=== PATIENT | male | born 1970 | race African-American/Black ===

== ENCOUNTER → 2021-12-19 | Outpatient (BNVA) | payer MEDICARE, MEDICAID, SELFPAY | END | disposition home or self-care (01) | PROVIDERS: PCP Family Medicine; Visit Provider Urology ==

== ENCOUNTER 2025-06-02 14:50 | Inpatient (IN) | payer MEDICARE, MEDICAID, SELFPAY ==
[2025-06-02 15:11] VITALS: BP 93/52; PULSE 104; RESP 18; TEMP 36.5; O2SAT 96
--- NOTE | 2025-06-02 15:41 | PD.EDRME ---
Rapid Medical Screening Exam E Arrival date/time: 06/02/25 14:50 54-year-old male with a history of Down syndrome and indwelling Alvarez catheter urinary retention and frequent UTIs reports with complaints of cloudy urine and fatigue and not eating x 1 day Chief Complaint: General Adult/Misc Complain Time Seen by Provider: 06/02/25 15:02 Vital signs: Vital Signs Temperature 97.7 F 06/02/25 15:11 Pulse Rate 104 H 06/02/25 15:11 Respiratory Rate 18 06/02/25 15:11 Blood Pressure 93/52 L 06/02/25 15:11 Pulse Oximetry (%) 96 06/02/25 15:11 Oxygen Delivery Method Room Air 06/02/25 15:11
[2025-06-02 16:12] LABS: Basophils # (Auto) 0.0 Thou/mm3 (0.0-0.2); Basophils % (Auto) 0 % (0-2.5); Eosinophils # (Auto) 0.0 Thou/mm3 (0.0-0.5); Eosinophils % (Auto) 0 % (0-10); Hematocrit 32.3 % (41.0-53.0); Hemoglobin 11.0 g/dL (13.5-16.0); Immature Granulocytes Auto 0.21 Thou/mm3 (0.00-0.00); Lymphocytes # (Auto) 0.6 Thou/mm3 (1.0-4.8); Lymphocytes % (Auto) 3 % (10-50); Mean Corpuscular HGB Conc 34.1 g/dl (31.0-37.0); Mean Corpuscular Hemoglobin 35.4 pg (25.0-35.0); Mean Corpuscular Volume 104 fL (80-100); Monocytes # (Auto) 1.5 Thou/mm3 (0.0-0.8); Monocytes % (Auto) 7 % (0-12); Neutrophils # (Auto) 20.2 Thou/mm3 (1.8-7.7); Neutrophils % (Auto) 90 % (37-80); Nucleated Red Blood Cell # 0.00 Thou/mm3 (0.00-0.00); Nucleated Red Blood Cell % 0 /100 WBC (0); Platelet Count 135 Thou/mm3 (140-440); RDW Standard Deviation 60.0 fL (35.1-43.9); Red Blood Count 3.11 Miln/mm3 (4.50-5.90); White Blood Count 22.6 Thou/mm3 (3.8-10.6)
[2025-06-02 16:32] LABS: Alanine Aminotransferase 12 U/L (10-49); Albumin, Serum 3.0 gm/dL (3.5-5.0); Albumin/Globulin Ratio 0.6 (1.2-2.2); Alkaline Phosphatase 64 U/L (46-116); Anion Gap 9 (7-16); Aspartate Amino Transferase 40 U/L (0-34); BUN/Creatinine Ratio 11 Ratio (12-20); Bilirubin,Total 0.3 mg/dL (0.3-1.2); Blood Urea Nitrogen 52 mg/dL (9-23); Calcium 8.8 mg/dL (8.3-10.6); Calcium (Corrected) 9.6 mg/dL (8.5-10.1); Carbon Dioxide 23.0 mMol/L (20.0-31.0); Chloride 95 mMol/L (98-107); Creatinine (Component) 4.7 mg/dL (0.6-1.3); Globulin 4.7 gm/dL (2.3-3.5); Glucose 98 mg/dL (74-106); Osmolality,Calculated 269 (275-295); Potassium 5.1 mMol/L (3.4-5.1); Sodium 127 mMol/L (136-145); Total Protein 7.7 gm/dL (5.7-8.2); eGFR 14 See Note
--- NOTE | 2025-06-02 18:09 | XR_ITS ---
Examination: AP chest single view Technique: AP portable semiupright chest single view Date and time: June 02, 2025 1838 hrs., Comparison October 03, 2023. Indications: Hypertension shortness of breath today. Findings: Mild heart failure. Mild enlargement cardiac contour, prominent vascular congestion including central vascular engorgement. Mild bilateral perihilar pulmonary edema. Consider superimposed pneumonia at the lung bases. Impression: Mild heart failure Consider superimposed pneumonia at the lung bases.
--- NOTE | 2025-06-02 18:11 | PD.EDADULT ---
ED General RME/HPI General Chief complaint: General Adult/Misc Complain Stated complaint: LOW BP Time Seen by Provider: 06/02/25 15:02 Arrival date/time: 06/02/25 14:50 RME / HPI RME / HPI narrative: 54-year-old male with a history of Down syndrome and indwelling Alvarez catheter urinary retention and frequent UTIs reports with complaints of cloudy urine and fatigue and not eating x 1 day. Patient was also noted to be nonambulatory today due to weakness. Went to the clinic and the clinic sent to us for blood pressure of mid 80s systolic. No fever noted no vomiting noted no diarrhea noted. Patient finished antibiotic last week. Related Data Home Medications ?Medication ?Instructions ?Recorded ?Confirmed docusate sodium 100 mg capsule 100 mg PO BID PRN bowel movement 05/09/19 10/02/23 loratadine 10 mg tablet 10 mg PO QDAY 05/16/19 10/02/23 diphenhydramine HCl 25 mg capsule 25 mg PO HS 07/07/21 10/02/23 (Benadryl) divalproex 500 mg tablet,extended 500 mg PO BID 01/17/22 10/02/23 release 24 hr magnesium oxide 400 mg PO BID 01/17/22 10/02/23 melatonin 10 mg tablet 10 mg PO HS 01/17/22 10/02/23 quetiapine 25 mg tablet (Seroquel) 25 mg PO TID 01/17/22 10/02/23 finasteride 5 mg tablet 5 mg PO BID 01/18/22 10/02/23 ketoconazole 2 % topical cream See Rx Instructions .Route .COMPLEX 01/18/22 10/02/23 linaclotide 145 mcg capsule 145 mcg PO AC 01/18/22 10/02/23 (Linzess) tamsulosin 0.4 mg capsule 0.4 mg PO BID 03/02/22 10/02/23 febuxostat 80 mg tablet (Uloric) 80 mg PO QDAY 06/20/22 10/02/23 metoprolol tartrate 50 mg tablet 50 mg PO BID 06/20/22 10/02/23 indomethacin 50 mg capsule 50 mg PO TID PRN Pain 10/02/23 10/02/23 gxytzcdkpxty-grkxqedq-qdwwjm tablet 1 tab PO QDAY 10/02/23 10/02/23 Previous Rx's ?Medication ?Instructions ?Recorded loperamide 2 mg tablet 2 mg PO Q6H PRN loose stool #14 12/31/22 (Anti-Diarrheal (loperamide)) tabs Allergies Allergy/AdvReac Type Severity Reaction Status Date / Time No Known Allergies Allergy Verified 06/02/25 14:52 Review of Systems Review of Systems Narrative Review of Systems: Review of system reviewed and within normal limits except mentioned in HPI ED Exam Narrative Physical exam: VITAL SIGNS: Reviewed. GENERAL APPEARANCE: Alert and good eye contact nonverbal does not follows commands, no acute distress, HEAD AND FACE: Non-traumatic. ENT: PERRL, pink conjunctivitis, eyelid no trauma, Mucous membrane moist. NECK: Supple, nontender, no nuchal rigidity. CHEST: No tenderness, no crepitus, no paradoxical movement, no retractions. LUNGS: Clear, well ventilated, symmetric, no rales, no wheezing, no ronchi, no stridor, good breath sounds bilaterally. HEART: Regular rate, regular rhythm, no murmur, no gallops. ABDOMEN: Soft, positive bowel sounds, nondistended, no guarding, nontender, no rebound, no masses, RECTAL: Deferred. GENITAL: Alvarez catheter intact, cloudy in color NEUROLOGICAL: Gross motor function intact sensory function intact, Appropriate for age. MUSCULOSKELETAL: low back nontender, full range of motion. EXTREMITIES: Nontender, full range of motion. SKIN: Color pink, dry, no rash, no lacerations, no abrasions, no contusions. LYMPHATICS: Deferred. Course Quality Measures none Orders Category Date Time Status Bedside COVID-19 Antigen Test NOW Care 06/02/25 18:08 Active Bedside Influenza A&B Antigen Test NOW Care 06/02/25 18:08 Completed COVID-19 Screening Questionnaire NOW Care 06/02/25 21:17 Active Decision to Admit X1 Care 06/02/25 21:17 Active Alvarez [Urinary Catheter, Remove] ONCE Care 06/02/25 18:08 Active Alvarez [Urinary Catheter] QS Care 06/02/25 18:08 Active Alvarez to [place] Routine Care 06/02/25 18:08 Ordered IV [Insert IV] NOW Care 06/02/25 19:44 Active XR chest 1V Stat Exams 06/02/25 18:09 Completed Blood Culture (Lab) Stat Lab 06/02/25 19:39 Received CBC Stat Lab 06/02/25 15:50 Completed CMP [Comprehensive Metabolic Panel] Stat Lab 06/02/25 15:50 Completed Lactate (Lactic Acid) Stat Lab 06/02/25 19:29 Results Procalcitonin Stat Lab 06/02/25 19:29 Completed UA [Urinalysis] Stat Lab 06/02/25 19:28 Completed Urine Culture Stat Lab 06/02/25 19:28 Received Piper/Tazo 3.375 gm Premix [Zosyn] Med 06/02/25 20:13 Discontinued 3.375 gm in 50 ml IV X1 Ringers Lactated 1000 ml [Lactated Ringers] 1,000 ml Med 06/02/25 18:09 Discontinued IV 999 mls/hr Vital Signs Vital signs: Vital Signs Temperature 97.7 F 06/02/25 15:11 Pulse Rate 104 H 06/02/25 15:11 Respiratory Rate 18 06/02/25 15:11 Blood Pressure 93/52 L 06/02/25 15:11 Pulse Oximetry (%) 96 06/02/25 15:11 Oxygen Delivery Method Room Air 06/02/25 15:11 Discharge Plan Plan Patient Disposition: Admit Acute Care w/in Hospital Discharge Disposition comment: Stable Prescriptions/Referrals Prescriptions/Med Rec: No Action diphenhydramine HCl [Benadryl] 25 mg capsule 25 mg PO HS divalproex 500 mg Tablet Extended Release 24 Hr 500 mg PO BID Rx Instructions: @9099-5810 quetiapine [Seroquel] 25 mg Tablet 25 mg PO TID Rx Instructions: take 1 tab in the morning and 1 tab at noon and 3 tabs at bedtime melatonin 10 mg Tablet 10 mg PO HS magnesium oxide 400 mg magnesium Tablet 400 mg PO BID Linzess 145 mcg Capsule 145 mcg PO AC Rx Instructions: TAKE 1 CAPSULE ORALLY DAILY AT LEAST 30 MINUTES BEFORE THE FIRST MEAL OF THE DAY ketoconazole 2 % Cream See Rx Instructions .ROUTE .COMPLEX Rx Instructions: APPLY TO AFFECTED AREAS OF BOTH FEET DAILY AT BEDTIME finasteride 5 mg Tablet 5 mg PO BID tamsulosin 0.4 mg Capsule 0.4 mg PO BID docusate sodium 100 mg Capsule 100 mg PO BID PRN (Reason: bowel movement) Rx Instructions: prn if no bm on the 3rd day by 1900. loratadine 10 mg Tablet 10 mg PO QDAY metoprolol tartrate 50 mg Tablet 50 mg PO BID Rx Instructions: Hold if SBP<90 or HR<60 febuxostat [Uloric] 80 mg Tablet 80 mg PO QDAY loperamide [Anti-Diarrheal (loperamide)] 2 mg tablet 2 mg PO Q6H PRN (Reason: loose stool) Qty: 14 0RF fgiyrzpvhzsb-emroprbi-jpfuqi Tablet 1 tab PO QDAY Rx Instructions: centrum silver indomethacin 50 mg Capsule 50 mg PO TID PRN (Reason: Pain) Rx Instructions: administer with food or milk. PRN for gout flare up. Referrals: Robbie Carroll PA-C [Primary Care Provider] - In 1 week Problem List Clinical Impression: Sepsis, UTI (urinary tract infection), PNA (pneumonia), COVID Patient/Caregiver Discharge Instructions Print Language: Armenian Stand Alone Forms: Kimberlee Award Info., Patient Portal Info Letter MDM Narrative MDM hospital course: 54-year-old male with a history of Down syndrome and indwelling Alvarez catheter urinary retention and frequent UTIs reports with complaints of cloudy urine and fatigue and not eating x 1 day. Patient was also noted to be nonambulatory today due to weakness. Went to the clinic and the clinic sent to us for blood pressure of mid 80s systolic. No fever noted no vomiting noted no diarrhea noted. Patient finished antibiotic last week. Sepsis alert was initiated right away. Chest x-ray showed pneumonia, urinalysis significant for UTI. CBC showed significant leukocytosis 22.6 hemoglobin 11 hematocrit 32.3 patient's creatinine today was also noted to be elevated, 4.7 BUN of 52, sodium of 127. Lactic acid 3.5 Pro-Kishan was also noted to be 2.38. Was also tested positive for COVID-19. Patient received IV fluids, IV Zosyn, Spoke with hospitalist, who admitted the patient. Medication Administration(s) Medication Administration History Discontinued Medications Lactated Ringer's (Lactated Ringers) 1,000 mls @ 999 mls/hr IV .Q1H1M ONE Stop: 06/02/25 19:09 Last Infusion: 06/02/25 21:00 Dose: Infused Documented By: Admin: 06/02/25 19:48 Dose: 999 mls/hr Documented By: RACHELL Piperacillin/Tazobactam/Dextrose (Zosyn) 3.375 gm in 50 mls @ 100 mls/hr IV X1 ONE Stop: 06/02/25 20:42 Last Infusion: 06/02/25 21:18 Dose: Infused Documented By: Admin: 06/02/25 20:45 Dose: 100 mls/hr Documented By: RACHELL Diagnosis Differential diagnosis: Sepsis, UTI pneumonia, COVID,acute on chronic kidney disease Most likely dx, and/or detailed dx discussion: Sepsis, UTI, pneumonia, COVID,acute on chronic kidney disease
[2025-06-02 18:14] VITALS: BP 96/81; PULSE 101; RESP 18; TEMP 36.8; O2SAT 96
[2025-06-02 19:38] LABS: Collection Type, Urine Catheter
[2025-06-02 19:44] LABS: Bacteria,Urine Rare; Bilirubin,Urine Negative (Negative); Blood,Urine 3+ (Negative); Color,Urine Yellow (Lt Yel-Yel); Glucose, Urine Negative (Negative); Ketones,Urine Negative (Negative); Leukocyte Esterase,Urine Positive (Negative); Nitrite,Urine Negative (Negative); PH,Urine 6.5 (5.0-7.0); Protein,Urine 1+ (Neg - Trace); RBC,Urine 129 /hpf (0-3); Specific Gravity,Urine 1.007 (1.001-1.035); Squamous Epithelial Cell,Urine 3 /hpf (0-5); Urobilinogen,Urine Negative mg/dL (0.0-1.0); WBC,Urine 1488 /hpf (0-5)
[2025-06-02 19:45] LABS: Clarity,Urine Turbid (Clear/Hazy)
[2025-06-02 19:47] LABS: Lactate (Lactic Acid) 3.5 mMol/L (0.4-2.0)
[2025-06-02] MEDS: RINGERS LACTATED 1000 ML 1,000 ML 999 ML IV (19:48)
[2025-06-02 20:29] LABS: Procalcitonin 2.38 ng/ml (0.0-0.49)
[2025-06-02] MEDS: PIPER/TAZO 3.375 GM PREMIX 3.375 GM/50 ML BAG IV (20:45)
[2025-06-02 21:28] VITALS: BP 116/82; PULSE 110; RESP 18; TEMP 37.9; O2SAT 95
[2025-06-02] MEDS: SODIUM CHLORIDE 0.9% 1000 ML 1,000 ML 999 ML IV ×2 (22:14→23:37)
[2025-06-02 22:16] LABS: INR 1.1 (0.9-1.3); Partial Thromboplastin Time 32.7 Seconds (22.0-36.0); Prothrombin Time 12.1 Seconds (9.0-12.2)
[2025-06-02] MEDS: MIDAZOLAM INJ 1 MG/ML VIAL 2 ML 2 MG IVP (22:17)
--- NOTE | 2025-06-02 22:30 | PC.NURSE ---
REMOVED SANTANA CATHETER PT CAME IN WITH PER PROVIDER JOE, NEW SANTANA CATHETER PLACED 20F 10CC
[2025-06-02 22:46] LABS: Reflex Lactate? Y
--- NOTE | 2025-06-02 23:08 | PD.RESHP ---
Documentation for date of: 06/02/25 HPI History of Present Illness History of present illness: Patient is a 54-year-old male with Down syndrome with past medical history development delay, diabetes, gout, hypertension, obstructive uropathy, chronic indwelling Alvarez catheter due to BPH, recurrent UTIs brought into the ED on 06/02/2025 for hypotension. Per health aide at bedside, patient has not been feeling well and engaging appropriately with others in past few days. Also noted urine to be cloudy. Patient was sent to clinic then send to ED due to low blood pressure of 80/59. Patient had chills, but no recent fever, vomiting, diarrhea and sick contacts. ED Course: -Initial vitals were BP 93/52, pulse 104, temperature 97.7, O2 sats 96 on room air. -Labs significant for CBC WBC 22. 6, hemoglobin 11, hematocrit 22.0, MCV 35, NA 131, creatinine 4.5, GFR 15, albumin 2.7, UA positive for leukocyte esterase, RBC 159, WBC 1488, COVID-positive -Imaging included chest x-ray superimposed pneumonia at the lung bases -In the ED, patient was given 1 L LR, Zosyn, midazolam. -Patient was admitted for complicated UTI management. Review of Systems Review of systems otherwise negative except what is mentioned above. Past Medical History: Down syndrome (nonverbal), IBD, gout, hypertension, anemia of chronic disease, complex urological history including BPH s/p cystoscopy and uretheral dilation, B/L hydronephrosis, recurrent UTIs/pyelonephritis Family History: Nonremarkable Surgical History: Social History:Lives at [facility]. Denies history of smoking, denies current alcohol use, denies recreational drug use Current Medications: (Source: ) Allergies: No known drug allergies Exam Vital Signs Temp Pulse Resp BP Pulse Ox O2 Del Method 100.2 F 110 H 18 116/82 95 Room Air 06/02/25 21:28 06/02/25 21:28 06/02/25 21:28 06/02/25 21:28 06/02/25 21:28 06/02/25 21:28 Narrative Exam General: Alert, no acute distress.Conversational and non-toxic appearing. Skin: Warm, dry, intact. No rash or ecchymoses. Head: Normocephalic, atraumatic. Eye: Normal conjunctiva, PERRL. Throat: Oral mucosa moist. No obvious lesions in oropharynx. Cardiovascular: Regular rate and rhythm, no murmur, +S1/S2. Respiratory: Lungs are clear to auscultation, respirations unlabored, rhonchi at the base. Gastrointestinal: Soft, nontender, non-distended. No guarding or rebound tenderness. Extremities: No edema, no cyanosis, no clubbing. Neuro: Alert and oriented x3.No focal deficits observed. Conversant, moving all extremities. No overt cerebellar signs/incoordination. Psychiatric: Cooperative, appropriate affect Results: Labs 06/03/25 07:30 06/02/25 23:08 Labs: Short CBC 06/02/25 Range/Units 15:50 WBC 22.6 H (3.8-10.6) Thou/mm3 Hgb 11.0 L (13.5-16.0) g/dL Hct 32.3 L (41.0-53.0) % Plt Count 135 L (140-440) Thou/mm3 BMP 06/02/25 15:50 Sodium 127 L Potassium 5.1 Chloride 95 L Carbon Dioxide 23.0 BUN 52 H Creatinine 4.7 H* Glucose 98 Calcium 8.8 Liver Function 06/02/25 Range/Units 15:50 Total Bilirubin 0.3 (0.3-1.2) mg/dL AST 40 H (0-34) U/L ALT 12 (10-49) U/L Alkaline Phosphatase 64 (46-116) U/L Albumin 3.0 L (3.5-5.0) gm/dL Urine 06/02/25 Range/Units 19:28 Urine Color Yellow (Lt Yel-Yel) Urine Clarity Turbid A (Clear/Hazy) Urine pH 6.5 (5.0-7.0) Ur Specific [place] 1.007 (1.001-1.035) Urine Protein 1+ A (Neg - Trace) Urine Glucose (UA) Negative (Negative) Quality Measures Quality Measures none Medications Home Medications and Allergies Home Medications ?Medication ?Instructions ?Recorded ?Confirmed ?Type docusate sodium 100 mg capsule 100 mg PO BID PRN bowel movement 05/09/19 06/03/25 History loratadine 10 mg tablet 10 mg PO QDAY 05/16/19 06/03/25 History diphenhydramine HCl 25 mg capsule 25 mg PO HS 07/07/21 06/03/25 History (Benadryl) divalproex 500 mg tablet,extended 500 mg PO BID 01/17/22 06/03/25 History release 24 hr magnesium oxide 400 mg PO BID 01/17/22 06/03/25 History melatonin 10 mg tablet 10 mg PO HS 01/17/22 06/03/25 History quetiapine 25 mg tablet (Seroquel) 75 mg PO 2000 01/17/22 06/03/25 History finasteride 5 mg tablet 5 mg PO BID 01/18/22 06/03/25 History ketoconazole 2 % topical cream See Rx Instructions .Route .COMPLEX 01/18/22 06/03/25 History linaclotide 145 mcg capsule 145 mcg PO AC 01/18/22 06/03/25 History (Linzess) tamsulosin 0.4 mg capsule 0.4 mg PO BID 03/02/22 06/03/25 History febuxostat 80 mg tablet (Uloric) 80 mg PO QDAY 06/20/22 06/03/25 History metoprolol tartrate 50 mg tablet 50 mg PO BID 06/20/22 06/03/25 History indomethacin 50 mg capsule 50 mg PO TID PRN Pain 10/02/23 06/03/25 History slwvyylzgxqp-yfxyibyz-lbyilj tablet 1 tab PO QDAY 10/02/23 06/03/25 History quetiapine 25 mg tablet 25 mg PO 0700,1500 06/03/25 06/03/25 History Allergies Allergy/AdvReac Type Severity Reaction Status Date / Time No Known Allergies Allergy Verified 06/02/25 14:52 Visit Medications Acetaminophen (Acetaminophen 325 Mg Tablet) 650 mg PO Q6H PRN PRN Reason: Fever >101.5 Stop: 07/02/25 22:52 Meropenem 500 mg/ Sodium (Chloride) 50 mls @ 100 mls/hr IV QDAY DESMOND Stop: 06/09/25 23:04 Ibuprofen (Ibuprofen Tab 600 Mg Tablet) 600 mg PO Q6H PRN PRN Reason: PAIN SCALE 1-3 (mild Stop: 07/02/25 22:52 Discontinued Medications Lactated Ringer's (Lactated Ringers) 1,000 mls @ 999 mls/hr IV .Q1H1M ONE Stop: 06/02/25 19:09 Last Infusion: 06/02/25 21:00 Dose: Infused Piperacillin/Tazobactam/Dextrose (Zosyn) 3.375 gm in 50 mls @ 100 mls/hr IV X1 ONE Stop: 06/02/25 20:42 Last Infusion: 06/02/25 21:18 Dose: Infused Sodium Chloride (Ns) 1,000 mls @ 999 mls/hr IV .Q1H1M ONE Stop: 06/02/25 22:46 Last Admin: 06/02/25 22:14 Dose: 999 mls/hr Midazolam HCl (Midazolam Inj 1 Mg/Ml Vial 2 Ml) 2 mg IVP X1 ONE Stop: 06/02/25 21:51 Last Admin: 06/02/25 22:17 Dose: 2 mg Assessment & Plan Plan Patient is a 54-year-old male with Down syndrome with past medical history development delay, diabetes, gout, hypertension, obstructive uropathy, chronic indwelling Alvarez catheter due to BPH, recurrent UTIs brought into the ED on 06/02/2025 for hypotension. Admitted for UTI secondary to sepsis and COVID evaluation and management. # Sepsis secondary to # Complicated UTI #COVID + #Chronic indwelling catheter #History of BPH s/p cystoscopy and urethral dilation Patient has a history of recurrent UTI. UA positive for leukocyte esterase, RBC 159, WBC 1488. Concern for sepsis due to labs significant for WBC 22.6, lacti acid 3.5, hypotension, tachycardia. Patient received 1 L RL in the ED and Zosyn 3.375 gm. - Continue IV fluids - Follow-up on blood and urine cultures a.m. - Started meropenem 500 mg IV daily - Daily labs BMP, CBC, and electrolytes - Consider resuming BPH meds finasteride 5mg and tamsulosin 0.4 # Superimposed pneumonia # In setting of COVID-positive Chest x-ray superimposed pneumonia at the lung bases. COVID-positive. -IV Antibiotic as mentioned above -Blood cultures pending -Patient on room air #Acute on Chronic Kidney injury #BARB, #Hyponatremia Likely pre renal as the pt had poor oral intake Vs obstructive uropathy in setting of BPH Creatinine 4.7( Baseline seems 1.9), BUN 55, EGFR [address] 02/14/24 showed severe left and monitor to advance right hydronephrosis likely related to significant prostatomegaly. -Avoid nephrotoxins -Monitor renal panel -Renally dosed medications #Acute on chronic anemia On admission hemoglobin 11, hematocrit 32.3, MCV 104. -Continue to monitor #IBD #Constipation Docusate PO qday at home - Pending med rec #Developmental Delay #Down syndrome On home meds Divalproex Na 500mg BID, Quetiapine 75mg qHS - Plan to resume home medication #Hyperuricemia/gout Home meds include Febuxostat 80mg qday, - Pending med rec Hospital management: Lines: peripheral IV Diet: regular GI prophylaxis: NA DVT prophylaxis: none Disposition: sepsis in setting of UTI+Covid CODE STATUS: Full code Patient seen and assessed under supervision of attending physician Dr.Alhalaibeh Mara Soria MD PGY-1, Internal Medicine Please note: this document was transcribed using voice recognition technology; minor inaccuracies may be present. Attending Provider Attestation/Addendum After examination of the patient and review of the clinical data I feel that this patient needs admission to the hospital for further treatment/evaluation. I Kavitha Dey MD, attest that I was physically present for pearce portions of evaluation, and examined patient, labs and imagings and plan of care were discussed with IM residents team, and I agree with the findings and plans documented above.
[2025-06-02 23:19] LABS: Lactic Acid, 3 HR 0.9 mMol/L (0.4-2.0)
[2025-06-02] MEDS: MEROPENEM INJ 500 MG in SODIUM CHLORIDE 0.9% (Popper) 50 ML 100 MG IV (23:26)
[2025-06-02 23:28] VITALS: BP 97/52; PULSE 100; RESP 18; TEMP 37.2; O2SAT 96
[2025-06-02 23:40] LABS: Albumin, Serum 2.7 gm/dL (3.5-5.0); Anion Gap 9 (7-16); BUN/Creatinine Ratio 10 Ratio (12-20); Blood Urea Nitrogen 42 mg/dL (9-23); Calcium 8.3 mg/dL (8.3-10.6); Calcium (Corrected) 9.3 mg/dL (8.5-10.1); Carbon Dioxide 20.9 mMol/L (20.0-31.0); Chloride 101 mMol/L (98-107); Creatinine (Component) 4.4 mg/dL (0.6-1.3); Glucose 94 mg/dL (74-106); Osmolality,Calculated 273 (275-295); Phosphorous 3.8 mg/dL (2.4-5.1); Potassium 4.4 mMol/L (3.4-5.1); Sodium 131 mMol/L (136-145); eGFR 15 See Note
[2025-06-03] VITALS (14 sets, daily range): BP systolic 84–133; BP diastolic 54–90; PULSE 100–138; RESP 10–20; TEMP 36.1–38.7; O2SAT 3–100; BMI 27.6
--- NOTE | 2025-06-03 00:40 | PC.NURSE ---
Report received pt arrived to room 371 via gurney with care provider at side, transferred pt to bed and placed satellite project site monitor. Pt current oxygen sats fluctuate between 85-88% on room air, placed pt on oxygen 4L via NC increased to 94%.
[2025-06-03] MEDS: ACETAMINOPHEN SUPP 650 MG SUPP PR (05:47)
--- NOTE | 2025-06-03 05:59 | PC.NURSE ---
A [facility] down time occured 06/03/25 [id number]
[2025-06-03] MEDS: SODIUM CHLORIDE 0.9% 1000 ML 1,000 ML 999 ML IV (07:29)
[2025-06-03 08:06] LABS: Basophils # (Auto) 0.1 Thou/mm3 (0.0-0.2); Basophils % (Auto) 0 % (0-2.5); Eosinophils # (Auto) 0.0 Thou/mm3 (0.0-0.5); Eosinophils % (Auto) 0 % (0-10); Hematocrit 33.2 % (41.0-53.0); Hemoglobin 11.5 g/dL (13.5-16.0); Immature Granulocytes Auto 0.34 Thou/mm3 (0.00-0.00); Lymphocytes # (Auto) 0.3 Thou/mm3 (1.0-4.8); Lymphocytes % (Auto) 2 % (10-50); Mean Corpuscular HGB Conc 34.6 g/dl (31.0-37.0); Mean Corpuscular Hemoglobin 35.6 pg (25.0-35.0); Mean Corpuscular Volume 103 fL (80-100); Monocytes # (Auto) 2.2 Thou/mm3 (0.0-0.8); Monocytes % (Auto) 11 % (0-12); Neutrophils # (Auto) 17.7 Thou/mm3 (1.8-7.7); Neutrophils % (Auto) 86 % (37-80); Nucleated Red Blood Cell # 0.00 Thou/mm3 (0.00-0.00); Nucleated Red Blood Cell % 0 /100 WBC (0); Platelet Count 121 Thou/mm3 (140-440); RDW Standard Deviation 59.5 fL (35.1-43.9); Red Blood Count 3.23 Miln/mm3 (4.50-5.90); White Blood Count 20.7 Thou/mm3 (3.8-10.6)
--- NOTE | 2025-06-03 09:32 | PC.SS ---
Patient Connor Whitley is a 54 Year old male admitted for Recurring UTI. SS contacted [facility] and spoke to Lexii Brady who reports patient is not conserved however [facility] does make decisions for patient if needed. Lexii can be contacted for other non invasive questions. Patient does need assistance with ADL's. She reports patient is ambulatory and does not utilize any source of DME. Pharmacy of choice is [facility] in [place]. At time of discharge patient will return back to [facility], they will provide transportation. Next of kin: [phone], Lexii Brady [phone] Discharge plan: back to [facility]
[2025-06-03] MEDS: RINGERS LACTATED 1000 ML 1,000 ML 125 ML IV ×2 (10:35→19:37)
--- NOTE | 2025-06-03 11:12 | XR_ITS ---
Examination: Retroperitoneal ultrasound, complete Technique: Multiple high resolution grayscale images of the retroperitoneum obtained, including kidneys and bladder. Exam date and time:June 03, 2025 1243 hours INDICATIONS: Hydronephrosis on ultrasound June 19, 2022 FINDINGS: Right kidney 11.2 cm cortex 1.3 cm Left kidney 11.5 cm cortex 2.0 cm Moderate to severe bilateral hydronephrosis Urinary bladder contracted around a Alvarez catheter Prostate volume 44.1 cm no prostate nodules IMPRESSION: Moderate to severe bilateral hydronephrosis
--- NOTE | 2025-06-03 13:32 | ESPR_ITS ---
<Statement entered by Blanche Camarena MD - 06/03/25 17:21> Overnight, no acute events reported. Patient has been doing well with her Shah, and is showing improvement in color and clarity of urine. Patient is currently pending cultures and will continue with IV fluids and antibiotics. Nephrology was consulted for possible BARB on CKD. Patient also here for COVID pneumonitis and will have DuoNeb treatments as needed. I discussed with and supervised the internet designer physician who took care of this patient. I personally saw and examined the patient and discussed the assessment and plan with the entire medicine team, including my attending Dr. Espana, I agree with most of the assessment and plan as documented below Blanche Camarena M.D. PGY-3 Disclaimer: Despite multiple revisions, due to the dictation software being used, the document bellow may not be free of grammatical errors including phonetic/typographic errors. However, this does not deter from our commitment to providing health care in the patient's best interest in mind. <Statement entered by Barbara Pagan MD - 06/03/25 16:43> Note reviewed, I agree with most of its contents and agree with the patient's care as documented by Dr. Dominguez. Patient examined at bedside. Care provider was also present who was able to provide some history. He is nonverbal and back to baseline. Cargiver stated that the past couple days patient has been not feeling himself and displaying signs of lethargy with less interactions. Has decreased appetite. Chronic Shah catheter present for about 3 years and gets changed monthly. There is history of recurrent UTIs exhibiting ESBL. Therefore started patient on meropenem for sepsis secondary to complicated UTI. Severe BARB (2/2 pre renal vs post renal) exhibited by elevated creatinine 4.4-- will continue fluids. We consulted nephrology for additional recommendations. Leukocytosis improving with WBC 20. Blood cultures and urine cultures are still pending. He is on 5L NC saturating at 90%. Likely due to COVID pneumonitis. Start breathing treatments. The patient's management plan was discussed with my attending physician Dr. Espana. Barbara Pagan, PGY-2 Documentation for date of: 06/03/25 Subjective Subjective Interval history: Patient is a 54-year-old male with Down syndrome with past medical history development delay, diabetes, gout, hypertension, obstructive uropathy, chronic indwelling Shah catheter due to BPH, recurrent UTIs brought into the ED on 06/02/2025 for hypotension. Admitted for UTI secondary to sepsis and COVID evaluation and management. 06/03/2025: Patient seen and examined at bedside patient nurse from facility is present to provide additional history. Patient does not speak as per his baseline he does engage with the provider. Patient is noted to have Corey-Aid colored urine in Shah bag likely secondary to trauma from changing chronic Shah catheter in the emergency department. His white blood cell count is 20 from 22 he had a Tmax overnight of 101.6 given Tylenol his heart rate was 124 and he is satting well on room air. Nephrology was consulted for suspected barb on CKD(not yet diagnosed), suspect prerenal iso sepsis vs obstructive etiology Exam Vital Signs Temp Pulse Resp BP Pulse Ox O2 Del Method O2 Flow Rate 98.0 F 100 20 97/58 L 3 L Nasal Cannula 3 06/03/25 13:11 06/03/25 13:11 06/03/25 13:11 06/03/25 13:11 06/03/25 13:11 06/03/25 13:11 06/03/25 12:00 Narrative Exam GENERAL: no acute distress, AAO x0, comfortably laying in bed HEENT: Head AT/ NC. Mucous membranes dry. PERRL. NECK: Supple, no lymphadenopathy, no carotid bruits. CARDIOVASCULAR: sinus tachycardia. Normal S1/S2, No m/r/g. No pitting edema of bilateral LEs. RESPIRATORY: CTAB. No wheezing, rhonchi, crackles. GASTROINTESTINAL: Abdomen soft, non tender no palpable masses. Bowel sounds present MUSCULOSKELETAL:? No cyanosis or edema, no visible joint swelling. NEUROLOGICAL: CN II-XII grossly intact. No focal deficits. Sensation intact, symmetric. PSYCHIATRIC: Awake and alert, not agitated, normal mood and affect. SKIN: No obvious rashes, no jaundice, normal turgor. Objective Labs 06/04/25 05:13 06/04/25 05:13 Labs: Laboratory Results - last 24 hr 06/02/25 06/02/25 06/02/25 15:50 19:28 19:29 WBC 22.6 H RBC 3.11 L Hgb 11.0 L Hct 32.3 L MCV 104 H MCH 35.4 H MCHC 34.1 RDW Std Deviation 60.0 H Plt Count 135 L Neut % (Auto) 90 H Lymph % (Auto) 3 L Knott % (Auto) 7 Eos % (Auto) 0 Baso % (Auto) 0 Neut # (Auto) 20.2 H Lymph # (Auto) 0.6 L Knott # (Auto) 1.5 H Eos # (Auto) 0.0 Baso # (Auto) 0.0 Immature Gran # (Auto) 0.21 H Absolute Nucleated RBC 0.00 Immature Gran % 1 H Nucleated RBC % 0 PT 12.1 INR 1.1 APTT 32.7 Sodium 127 L Potassium 5.1 Chloride 95 L Carbon Dioxide 23.0 Anion Gap 9 BUN 52 H Creatinine 4.7 H* Estim Creat Clear Calc Not Performed. eGFR 14 L* BUN/Creatinine Ratio 11 L Glucose 98 Calculated Osmolality 269 L Lactic Acid 3.5 H Calcium 8.8 Corrected Calcium 9.6 Phosphorus Total Bilirubin 0.3 AST 40 H ALT 12 Alkaline Phosphatase 64 Total Protein 7.7 Albumin 3.0 L Globulin 4.7 H Albumin/Globulin Ratio 0.6 L Procalcitonin 2.38 H Ur Collection Type Catheter Urine Color Yellow Urine Clarity Turbid A Urine pH 6.5 Ur Specific [place] 1.007 Urine Protein 1+ A Urine Glucose (UA) Negative Urine Ketones Negative Urine Blood 3+ A Urine Nitrite Negative Urine Bilirubin Negative Urine Urobilinogen (Auto) Negative Ur Leukocyte Esterase Positive Urine RBC 129 H Urine WBC 1488 H Ur Squamous Epith Cells 3 Urine Bacteria Rare 06/02/25 06/03/25 23:08 07:30 WBC 20.7 H RBC 3.23 L Hgb 11.5 L Hct 33.2 L MCV 103 H MCH 35.6 H MCHC 34.6 RDW Std Deviation 59.5 H Plt Count 121 L Neut % (Auto) 86 H Lymph % (Auto) 2 L Knott % (Auto) 11 Eos % (Auto) 0 Baso % (Auto) 0 Neut # (Auto) 17.7 H Lymph # (Auto) 0.3 L Knott # (Auto) 2.2 H Eos # (Auto) 0.0 Baso # (Auto) 0.1 Immature Gran # (Auto) 0.34 H Absolute Nucleated RBC 0.00 Immature Gran % 2 H Nucleated RBC % 0 PT INR APTT Sodium 131 L Potassium 4.4 D Chloride 101 Carbon Dioxide 20.9 Anion Gap 9 BUN 42 H Creatinine 4.4 H* Estim Creat Clear Calc Not Performed. eGFR 15 L BUN/Creatinine Ratio 10 L Glucose 94 Calculated Osmolality 273 L Lactic Acid 0.9 Calcium 8.3 Corrected Calcium 9.3 Phosphorus 3.8 Total Bilirubin AST ALT Alkaline Phosphatase Total Protein Albumin 2.7 L Globulin Albumin/Globulin Ratio Procalcitonin Ur Collection Type Urine Color Urine Clarity Urine pH Ur Specific [place] Urine Protein Urine Glucose (UA) Urine Ketones Urine Blood Urine Nitrite Urine Bilirubin Urine Urobilinogen (Auto) Ur Leukocyte Esterase Urine RBC Urine WBC Ur Squamous Epith Cells Urine Bacteria Quality Measures Quality Measures none Assessment & Plan Assessment Current Active Medications: Generic Name Dose Route Start Last Admin Trade Name Freq PRN Reason Stop Dose Admin Acetaminophen 650 mg 06/02/25 22:53 Acetaminophen 325 Mg Tablet PO 07/02/25 22:52 Q6H PRN Fever >101.5 Meropenem 500 mg/ Sodium 50 mls @ 100 mls/hr 06/03/25 21:00 Chloride IV 06/10/25 20:59 HS DESMOND Lactated Ringer's 1,000 mls @ 125 mls/hr 06/03/25 09:49 06/03/25 10:35 Lactated Ringers IV 07/03/25 09:48 125 mls/hr .Q8H DESMOND Administration Ibuprofen 600 mg 06/02/25 22:53 Ibuprofen Tab 600 Mg Tablet PO 07/02/25 22:52 Q6H PRN PAIN SCALE 1-3 (mild Plan Patient is a 54-year-old male with Down syndrome with past medical history development delay, diabetes, gout, hypertension, obstructive uropathy, chronic indwelling Shah catheter due to BPH, recurrent UTIs brought into the ED on 06/02/2025 for hypotension. Admitted for UTI secondary to sepsis and COVID evaluation and management. with increased o2 requirement today given duonebs. leukocytosis improving, pending cxs. # Sepsis secondary with end organ damage see #BARB # Complicated UTI # COVID Pneumonitis #Chronic indwelling catheter #History of BPH s/p cystoscopy and urethral dilation Patient has a history of recurrent UTI. UA positive for leukocyte esterase, RBC 159, WBC 1488. Concern for sepsis due to labs significant for WBC 22.6, lactic acid 3.5, procalcitonin 2.38 hypotension, tachycardia. Patient received 1 L RL in the ED and Zosyn 3.375 gm. - pt in the morning was on RA satting well, by the afternoon he required oxymask, now in 5L NC satting 90% given budesonide and albuterol inhalers - Past Urine Culture showed Pseudomonas Aeruginosa and Klebsiella Oxytoca, both sensitive to Imipenum and Ertapenem PLAN - pending blood cx - pending urine cx - Continue IV fluids 125 cc/hr - Follow-up on blood and urine cultures a.m. - Started meropenem 500 mg IV daily - Budesonide and albuterol given - vit C and zinc supplements daily - Chest PT - Daily labs BMP, CBC, and electrolytes #BARB on suspected CKD (Cr 4.7--> 4.4) #in setting of sepsis and severe BPH (prostate volume 78cc) Likely pre renal as the pt had poor oral intake Vs obstructive uropathy in setting of BPH suspect mixed etiology of prerenal and postrenal given bilateral hydronephrosis , will defer nephrostomy tubes at this time in setting of sepsis shah was exchanged in the ED Creatinine 4.7( Baseline seems 1.9), BUN 55, EGFR 14 Prostate volume from US on 09/2024 with volume 78.[address] AP: 02/14/24 showed severe left and monitor to advance right hydronephrosis likely related to significant prostatomegaly. 06/03: Renal US with Moderate to severe bilateral hydronephrosis -Avoid nephrotoxins -Strict I and O -Monitor renal panel -Renally dosed medications - restarted #bph medications, finasteride and tamsulosin -Nephro consulted, appreciate recs #Acute on chronic anemia On admission hemoglobin 11, hematocrit 32.3, MCV 104. -Continue to monitor #IBD #Constipation - Docusate PO qday at home - Restart home fuboxostat 80 mg qd, linolatolide, #Developmental Delay #Down syndrome - Resume home meds Divalproex Na 500mg BID, Quetiapine 75mg qHS #Hyperuricemia/gout - Home meds include Febuxostat 80mg qday Hospital management: Lines: peripheral IV Diet: renal diet GI prophylaxis: NA DVT prophylaxis: heparin 5000 sq Disposition: sepsis in setting of UTI+Covid CODE STATUS: Full code Plan discussed with Dr. Pagan, Dr Camarena, and Dr. Malorie Dominguez MD PGY1 Attending Provider Attestation/Addendum I have examined the patient, reviewed labs and imaging findings, discussed the case with the resident(s), and reviewed entered orders. I agree with the plan of care as outlined in this note, with these additional summaries/recommendations: Patient and parts order and stock clerk seen at bedside. Per parts order and stock clerk patient is nonverbal and no reliable history can be obtained. Patient admitted overnight for sepsis secondary to complicated urinary tract infection. Patient has history of MDR's and started on meropenem on admission. Blood and urine cultures taken, follow- up results when available. Patient also found to have COVID pneumonitis although symptoms are mild and we will continue supportive treatment for this. Patient diagnosed with acute kidney injury on chronic kidney disease. On admission creatinine 4.6 and BUN 44. Baseline appears in the 2 range. Etiology for BARB is likely multifactorial secondary to prerenal and postrenal etiologies. Prerenal etiology from sepsis and post renal etiology from acute urinary retention most likely secondary to prostamegaly. Continue home finasteride and Flomax. Shah catheter in place with over 3.2 L of urinary output in the last 24 hours. Lactic acidosis resolved. Significant leukocytosis mildly improving. Continue home divalproex and Seroquel for Down syndrome/agitation. Post Form Remover updated on the plan and in agreement. Per parts order and stock clerk patient has no family and is conserved. Please see residents note for additional details and management. Dr. Malorie MD
--- NOTE | 2025-06-03 13:37 | PD.RESCONSUL ---
HPI Data of Consult Consult date: 06/03/25 Requesting Physician: Kavitha Dey MD Admitting Provider: Kavitha Dey MD Attending Provider: Kavitha Dey MD Primary Care Provider: Robbie Carroll PA-C Consult Narrative Reason for consult: BARB History of present illness: Mr. Whitley is a 54 y/o M with PMH of Down syndrome, Developmental delay, diabetes, gout, hypertension, obstructive uropathy, chronic indwelling Alvarez catheter due to BPH, recurrent UTIs, presented to the hospital on 06/02/2025 due to hypotension. Patient was found to be hypotensive with Blood pressure of 80/59 during regular clinic visit and was sent to ED. Per health aide, patient was seen to be declining in mood and physical strength. Patient is unable to answer questions or interact with medical providers. Patient was admitted for UTI secondary to sepsis and COVID evaluation and management. Patient has been consulted with nephrology for management of BARB with possible CKD. Medical history: As stated above Surgical history: Denies Allergies: NKDA Medications: Pending official med rec Family history: Noncontributory Social history: Denies smoking cigarettes, drinking alcohol or using other illicit drugs ED course: In ED, patient's vitals were: Temp: 97.7F, NE:104, RR:18, BP:93/52, O2sat:96% RA. Labs showed WBC 22.6, Hgb 11.0, Hct 32.3, Na 127, BUN: 52, Cr 4.7 (Baseline around 2.0), eGFR 14 (Baseline ranging 28-40), Albumin 4.7, Lactic acid: 3.5 UA showed Urine color yellow and turbid, Urine Protein 1+, Blood 3+, Leukocyte Esterase positive, RBC 129, WBC: 1488, CXR (06/02/2025): Mild heart failure., Mild enlargement cardiac contour, prominent vascular congestion including central vascular engorgement., Mild bilateral perihilar pulmonary edema., Consider superimposed pneumonia at the lung bases. Renal US (06/03/2025): Moderate to severe bilateral hydronephrosis, Urinary bladder contracted around a Alvarez catheter, Prostate volume 44.1 cm no prostate nodules, Right kidney 11.2 cm cortex 1.3 cm, Left kidney 11.5 cm cortex 2.0 cm In ED, patient received LR 1L IV 999mls/hr and Zosyn 3.375 g IV X1 06/03/2025: Labs reviewed and patient examined at the bedside. Patient is unable to communicate at baseline. Currently taking Meropenem 500mg IV daily and LR 125 ml/hr. BP:97/58, Cr: 4.4, BUN:42, eGFR: 15, Lactic acid:0.9, Urine Output: 5.4L. cc:: cc: Kavitha Dey MD Review of Systems Review of Systems Narrative Review of Systems: ROS: All 12 systems assessed and the patient denies unless otherwise stated in HPI Exam Vital Signs Temp Pulse Resp BP Pulse Ox O2 Del Method O2 Flow Rate 98.0 F 100 20 97/58 L 3 L Nasal Cannula 3 06/03/25 13:11 06/03/25 13:11 06/03/25 13:11 06/03/25 13:11 06/03/25 13:11 06/03/25 13:11 06/03/25 12:00 Narrative Exam General: No acute distress, well nourished, AAOX0 Eye: PERRL, EOMI, normal conjunctiva, no scleral icterus HENT: Normocephalic, atraumatic, moist oral mucosa Neck: Supple, non-tender, no JVD, no lymphadenopathy Lungs: Non-labored respirations, symmetric chest rise, Clear to auscultate bilaterally, No wheezing, rhonchi, crackles Heart: Peripheral pulses intact bilaterally, Regular Rate and Rhythm, No pitting edema of bilateral LEs. Abdomen: Soft, non-tender, non-distended, no palpable masses Musculoskeletal: No cyanosis or edema, No visible joint swelling Skin: Skin is warm, dry, no rashes or lesions. Psychiatric: Cooperative, appropriate mood and affect, Awake and alert, not agitated Neuro: Cranial nerves II-XII grossly intact.Sensations intact to light touch. Results Labs 06/03/25 07:30 06/02/25 23:08 Labs: Short CBC 06/02/25 06/03/25 Range/Units 15:50 07:30 WBC 22.6 H 20.7 H (3.8-10.6) Thou/mm3 Hgb 11.0 L 11.5 L (13.5-16.0) g/dL Hct 32.3 L 33.2 L (41.0-53.0) % Plt Count 135 L 121 L (140-440) Thou/mm3 BMP 06/02/25 06/02/25 15:50 23:08 Sodium 127 L 131 L Potassium 5.1 4.4 D Chloride 95 L 101 Carbon Dioxide 23.0 20.9 BUN 52 H 42 H Creatinine 4.7 H* 4.4 H* Glucose 98 94 Calcium 8.8 8.3 Liver Function 06/02/25 06/02/25 Range/Units 15:50 23:08 Total Bilirubin 0.3 (0.3-1.2) mg/dL AST 40 H (0-34) U/L ALT 12 (10-49) U/L Alkaline Phosphatase 64 (46-116) U/L Albumin 3.0 L 2.7 L (3.5-5.0) gm/dL Urine 06/02/25 Range/Units 19:28 Urine Color Yellow (Lt Yel-Yel) Urine Clarity Turbid A (Clear/Hazy) Urine pH 6.5 (5.0-7.0) Ur Specific [place] 1.007 (1.001-1.035) Urine Protein 1+ A (Neg - Trace) Urine Glucose (UA) Negative (Negative) Quality Measures Quality Measures none Medications Home Medications and Allergies Home Medications ?Medication ?Instructions ?Recorded ?Confirmed ?Type docusate sodium 100 mg capsule 100 mg PO BID PRN bowel movement 05/09/19 06/03/25 History loratadine 10 mg tablet 10 mg PO QDAY 05/16/19 06/03/25 History diphenhydramine HCl 25 mg capsule 25 mg PO HS 07/07/21 06/03/25 History (Benadryl) divalproex 500 mg tablet,extended 500 mg PO BID 01/17/22 06/03/25 History release 24 hr magnesium oxide 400 mg PO BID 01/17/22 06/03/25 History melatonin 10 mg tablet 10 mg PO HS 01/17/22 06/03/25 History quetiapine 25 mg tablet (Seroquel) 75 mg PO 199901/17/22 06/03/25 History finasteride 5 mg tablet 5 mg PO BID 01/18/22 06/03/25 History ketoconazole 2 % topical cream See Rx Instructions .Route .COMPLEX 01/18/22 06/03/25 History linaclotide 145 mcg capsule 145 mcg PO AC 01/18/22 06/03/25 History (Linzess) tamsulosin 0.4 mg capsule 0.4 mg PO BID 03/02/22 06/03/25 History febuxostat 80 mg tablet (Uloric) 80 mg PO QDAY 06/20/22 06/03/25 History metoprolol tartrate 50 mg tablet 50 mg PO BID 06/20/22 06/03/25 History indomethacin 50 mg capsule 50 mg PO TID PRN Pain 10/02/23 06/03/25 History rofsnqmwvwbg-vgcaqnpp-kgscna tablet 1 tab PO QDAY 10/02/23 06/03/25 History quetiapine 25 mg tablet 25 mg PO 0700,1500 06/03/25 06/03/25 History Allergies Allergy/AdvReac Type Severity Reaction Status Date / Time No Known Allergies Allergy Verified 06/02/25 14:52 Visit Medications Acetaminophen (Acetaminophen 325 Mg Tablet) 650 mg PO Q6H PRN PRN Reason: Fever >101.5 Stop: 07/02/25 22:52 Meropenem 500 mg/ Sodium (Chloride) 50 mls @ 100 mls/hr IV HS DESMOND Stop: 06/10/25 20:59 Lactated Ringer's (Lactated Ringers) 1,000 mls @ 125 mls/hr IV .Q8H DESMOND Stop: 07/03/25 09:48 Last Admin: 06/03/25 10:35 Dose: 125 mls/hr Ibuprofen (Ibuprofen Tab 600 Mg Tablet) 600 mg PO Q6H PRN PRN Reason: PAIN SCALE 1-3 (mild Stop: 07/02/25 22:52 Discontinued Medications Acetaminophen (Acetaminophen Supp 650 Mg Supp) 650 mg NE Q6HR ONE Stop: 06/03/25 04:36 Last Admin: 06/03/25 04:56 Dose: Not Given Acetaminophen (Acetaminophen Supp 650 Mg Supp) 650 mg NE X1 ONE Stop: 06/03/25 04:36 Last Admin: 06/03/25 05:47 Dose: 650 mg Lactated Ringer's (Lactated Ringers) 1,000 mls @ 999 mls/hr IV .Q1H1M ONE Stop: 06/02/25 19:09 Last Infusion: 06/02/25 21:00 Dose: Infused Piperacillin/Tazobactam/Dextrose (Zosyn) 3.375 gm in 50 mls @ 100 mls/hr IV X1 ONE Stop: 06/02/25 20:42 Last Infusion: 06/02/25 21:18 Dose: Infused Sodium Chloride (Ns) 1,000 mls @ 999 mls/hr IV .Q1H1M ONE Stop: 06/02/25 22:46 Last Infusion: 06/02/25 23:31 Dose: Infused Meropenem 500 mg/ Sodium (Chloride) 50 mls @ 100 mls/hr IV X1 ONE Stop: 06/02/25 23:44 Last Infusion: 06/02/25 23:59 Dose: Infused Sodium Chloride (Ns) 1,000 mls @ 999 mls/hr IV .Q1H1M ONE Stop: 06/03/25 00:34 Last Admin: 06/02/25 23:37 Dose: 999 mls/hr Sodium Chloride (Ns) 1,000 mls @ 999 mls/hr IV .Q1H1M ONE Stop: 06/03/25 08:00 Last Admin: 06/03/25 07:29 Dose: 999 mls/hr Midazolam HCl (Midazolam Inj 1 Mg/Ml Vial 2 Ml) 2 mg IVP X1 ONE Stop: 06/02/25 21:51 Last Admin: 06/02/25 22:17 Dose: 2 mg Assessment & Plan Plan 54 y/o M with PMH of Down syndrome, Developmental delay, diabetes, gout, hypertension, obstructive uropathy, chronic indwelling Alvarez catheter due to BPH, recurrent UTIs, presented to the hospital on 06/02/2025 due to hypotension and was admitted for UTI secondary to sepsis and COVID evaluation and management. Patient has been consulted with nephrology for management of BARB with possible CKD. #BARB #Possible CKD -Upon admission, BUN: 52, Cr 4.7 (Baseline around 2.0), eGFR 14 (Baseline ranging 28-40) -Likely prerenal, given improvement with IV fluids/poor oral intake/hypotension VS Post renal/Obstructive uropathy in the setting of BPH. -No edema, lungs clear, mucus membranes dry. -Currently, BP:97/58, Cr: 4.4, BUN:42, eGFR: 15, Urine Output: 5.4L -Renal US (06/03/2025): Moderate to severe bilateral hydronephrosis, Urinary bladder contracted around a Alvarez catheter, Prostate volume 44.1 cm no prostate nodules, Right kidney 11.2 cm cortex 1.3 cm, Left kidney 11.5 cm cortex 2.0 cm Plan: -Started 1 L IV LR 125ml/hr maintenance fluid -Avoid nephrotoxins -Renally dose medication # Sepsis # 2/2 Complicated UTI #Chronic indwelling catheter #History of BPH s/p cystoscopy and urethral dilation - History of recurrent UTI. Concern for sepsis due to labs significant for WBC 22.6, lactic acid 3.5, hypotension, tachycardia. Patient received 1 L LR in the ED and Zosyn 3.375 gm. - UA showed Urine color yellow and turbid, Urine Protein 1+, Blood 3+, Leukocyte Esterase positive, RBC 129, WBC: 1488, - Clinical picture meets 3/4 SIRS criteria: T 101.6 (>100.9 or <96.8F), RR 20 (>20/min), HR 127 (>90/min), WBC 22.6 (>12 or <4K or Bands >10%). LA 3.5 (>2), and UTI as a source of infection, Concern for Severe Sepsis - Past Urine Culture showed Pseudomonas Aeruginosa and Klebsiella Oxytoca, both sensitive to Imipenum and Ertapenem Plan: - Continue 1 L IV LR 125ml/hr maintenance fluid - Follow-up on blood and urine cultures a.m. - Started meropenem 500 mg IV daily - Daily labs BMP, CBC, and electrolytes - Consider resuming BPH meds finasteride 5mg and tamsulosin 0.4 - Pending BC and UC #Superimposed pneumonia #In setting of COVID-positive #Acute on chronic anemia #IBD #Constipation #Developmental Delay #Down syndrome #Hyperuricemia/gout -Management per Primary Hospitalist Team. Thank you for allowing us to participate in the care of your patient Assessment and plan discussed with my attending physician Dr. Luis Garcia (PGY-1)- Internal medicine resident Attending Provider Attestation/Addendum Patient seen and examined with resident physician Dr. Garcia. Note reviewed, agree with findings and recommendations. Patient seems to have BARB secondary to prerenal azotemia -continue IV fluids/antibiotics. Reviewed radiology-patient seems to have bilateral hydronephrosis despite Alvarez catheter. At this point she will need urology evaluation. Could be the cause for complicated UTI. Thank you Kavitha for allowing me to participate in the care of Mr. Whitley
--- NOTE | 2025-06-03 15:02 | PC.SS ---
SS follow up note; Patient is pending Cultures, Patient will discharge back to [facility] when medically cleared.
--- NOTE | 2025-06-03 16:44 | PC.NURSE ---
DR. TORRES MADE AWARE PTS OXYGEN SATURATION DROPPED TO LOW 60'S, NOTIFIED BY CHALK MACHINE OPERATOR, UPON ENTERING ROOM PT IS AWAKE, FLOOR SANDING MACHINE OPERATOR REFLECTED LOW 80'S PT IS AWAKE IN NO DISTRESS. OXYMASK WAS APPLIED AND OXYGEN INCREASE TO 15L, PULSE OXIMETER CHANGED TO RIGHT EAR LOBE, GRADUALLY O2 INCREASED TO 98%. OXYGEN TITRATED TO 4L NC. PT WAS ALERT, ON 4L NS, 98%, AND CAREGIVER AT BEDSIDE WHEN NURSE LEFT THE ROOM. RECOMMENDED BREATHING TREATMENTS. DR. TORRES STATES SHE WILL FOLLOW UP WITH TEAM. NO NEW ORDERS GIVEN.
[2025-06-03] MEDS: ALBUTEROL RT 2.5 MG/0.5 ML NEBU INH (17:07)
[2025-06-03] MEDS: ZINC SULFATE 220 MG CAPSULE PO (19:37)
[2025-06-03] MEDS: BUDESONIDE RT 0.5 MG/2 ML NEBU INH (20:13)
[2025-06-03] MEDS: ASCORBIC ACID 250 MG TABLET 500 MG PO (20:22)
[2025-06-03] MEDS: DIVALPROEX SOD ER 250 MG TABER (NON-FORMULARY) 500 MG PO (20:22)
[2025-06-03] MEDS: TAMSULOSIN HCL 0.4 MG CAPSULE PO (20:22)
[2025-06-03] MEDS: MEROPENEM INJ 500 MG in SODIUM CHLORIDE 0.9% (Popper) 50 ML 100 MG IV (20:22)
[2025-06-03] MEDS: FINASTERIDE 5 MG TABLET PO (20:23)
[2025-06-04] VITALS (8 sets, daily range): BP systolic 91–98; BP diastolic 58–68; PULSE 88–106; RESP 11–21; TEMP 36.3–37.2; O2SAT 90–100
[2025-06-04] MEDS: RINGERS LACTATED 1000 ML 1,000 ML 125 ML IV ×2 (04:09→16:14)
[2025-06-04] MEDS: BUDESONIDE RT 0.5 MG/2 ML NEBU INH ×2 (06:17→18:48)
[2025-06-04 06:37] LABS: Basophils # (Auto) 0.0 Thou/mm3 (0.0-0.2); Basophils % (Auto) 0 % (0-2.5); Eosinophils # (Auto) 0.1 Thou/mm3 (0.0-0.5); Eosinophils % (Auto) 1 % (0-10); Hematocrit 28.8 % (41.0-53.0); Hemoglobin 9.7 g/dL (13.5-16.0); Immature Granulocytes Auto 0.15 Thou/mm3 (0.00-0.00); Lymphocytes # (Auto) 0.6 Thou/mm3 (1.0-4.8); Lymphocytes % (Auto) 5 % (10-50); Mean Corpuscular HGB Conc 33.7 g/dl (31.0-37.0); Mean Corpuscular Hemoglobin 35.7 pg (25.0-35.0); Mean Corpuscular Volume 106 fL (80-100); Monocytes # (Auto) 1.4 Thou/mm3 (0.0-0.8); Monocytes % (Auto) 11 % (0-12); Neutrophils # (Auto) 9.9 Thou/mm3 (1.8-7.7); Neutrophils % (Auto) 82 % (37-80); Nucleated Red Blood Cell # 0.00 Thou/mm3 (0.00-0.00); Nucleated Red Blood Cell % 0 /100 WBC (0); Platelet Count 126 Thou/mm3 (140-440); RDW Standard Deviation 64.0 fL (35.1-43.9); Red Blood Count 2.72 Miln/mm3 (4.50-5.90); White Blood Count 12.2 Thou/mm3 (3.8-10.6)
[2025-06-04 07:00] LABS: Anion Gap 9 (7-16); BUN/Creatinine Ratio 9 Ratio (12-20); Blood Urea Nitrogen 34 mg/dL (9-23); Calcium 8.5 mg/dL (8.3-10.6); Carbon Dioxide 23.8 mMol/L (20.0-31.0); Chloride 112 mMol/L (98-107); Creatinine (Component) 3.7 mg/dL (0.6-1.3); Estimated Creatinine Clearance 21.9 mL/min (>60); Glucose 76 mg/dL (74-106); Magnesium 1.6 mg/dL (1.6-2.6); Osmolality,Calculated 295 (275-295); Phosphorous 3.9 mg/dL (2.4-5.1); Potassium 4.9 mMol/L (3.4-5.1); Sodium 145 mMol/L (136-145); eGFR 18 See Note
--- NOTE | 2025-06-04 07:39 | ESPR_ITS ---
<Statement entered by Barbara Pagan MD - 06/04/25 17:37> Note reviewed, I agree with most of its contents and agree with the patient's care as documented by Dr. Dominguez. Patient examined at bedside. No events overnight. Oxygen requirements have improved with patient now on 1-2L NC saturatiing 98%. Caregiver at bedside says he is still lethargic with decreased appetite. This maybe due to underlying Covid. Labs reflect significant improvement in leukocytosis from 20 to 12. Hb downtrended from 11.5 to 9.7. most likely to mild traumatic blood loss From placement of catheter versus hemodilution from aggressive fluid repletion in the setting of his BARB. BARB has improved as well with creatinine downtrending from 4.4-3.7. Will continue to monitor his urine output. Currently exhibits good output of about 4-6 L every 24 hours. Continue meropenem in setting of complicated UTI. Final urine cultures are pending. Will de-escalate as needed. Nephrology team did discuss patient's case with urologist Dr Dow. Per urology, nephrostomy tubes are not recommended at this time due to history of Down syndrome and concern for tolerating the procedure. Continue BPH medications finasteride and tamsulosin. The patient's management plan was discussed with my attending physician Dr. Espana. Barbara Pagan, PGY-2 <Statement entered by Blanche Camarena MD - 06/04/25 13:53> Patient seen and examined at bedside. No acute overnight events reported. Patient continues to have clear yellow urine in his Shah bag and saturating well on 3 L nasal cannula. White count is improving and per nephrology, will order CT abdomen pelvis to rule out any urethral obstruction. Blood cultures in last 24 hours have been negative. Pending final speciation for urine cultures. I discussed with and supervised the art gallery internship physician who took care of this patient. I personally saw and examined the patient and discussed the assessment and plan with the entire medicine team, including my attending Dr. Espana, I agree with most of the assessment and plan as documented below Blanche Camarena M.D. PGY-3 Disclaimer: Despite multiple revisions, due to the dictation software being used, the document bellow may not be free of grammatical errors including phonetic/typographic errors. However, this does not deter from our commitment to providing health care in the patient's best interest in mind. Documentation for date of: 06/04/25 Subjective Subjective Interval history: Patient is a 54-year-old male with Down syndrome with past medical history development delay, diabetes, gout, hypertension, obstructive uropathy, chronic indwelling Shah catheter due to BPH, recurrent UTIs brought into the ED on 06/02/2025 for hypotension. Admitted for UTI secondary to sepsis and COVID evaluation and management. 06/03/2025: Patient seen and examined at bedside patient nurse from facility is present to provide additional history. Patient does not speak as per his baseline he does engage with the provider. Patient is noted to have Corey-Aid colored urine in Shah bag likely secondary to trauma from changing chronic Shah catheter in the emergency department. His white blood cell count is 20 from 22 he had a Tmax overnight of 101.6 given Tylenol his heart rate was 124 and he is satting well on room air. Nephrology was consulted for suspected barb on CKD(not yet diagnosed), suspect prerenal iso sepsis vs obstructive etiology 06/04/2025: Patient seen and examined at bedside. his nurse from the facility is present to provide additional history, she states that he has poor appetite, His shah bag has clear yellow urine today. afebrile overnight. he is satting well on 3L NC. WBC 12 from 20, improving. (per chart review in 2021, pt was seen by urology and nephrology, who recommended nephrostomy tube for the hydronephrosis at that time, however pt could not tolerate the procedure then)Dr. Smith has contacted Dr. Cote (urology), no formal consult in. Blood Cx NGTD @24 hrs, Urine Cx GNR, pending speciation Exam Vital Signs Temp Pulse Resp BP Pulse Ox O2 Del Method O2 Flow Rate 97.6 F 92 18 96/65 96 Nasal Cannula 3 06/04/25 04:00 06/04/25 06:17 06/04/25 06:17 06/04/25 04:00 06/04/25 06:17 06/04/25 04:00 06/04/25 06:17 Narrative Exam General: No acute distress, well nourished, AAOX0, somewhat fatigued than baseline per nurse from facility. Eye: PERRL, EOMI, normal conjunctiva, no scleral icterus HENT: Normocephalic, atraumatic, moist oral mucosa Neck: Supple, non-tender, no JVD, no lymphadenopathy Lungs: Non-labored respirations, symmetric chest rise, Clear to auscultate bilaterally, No wheezing, rhonchi, crackles on 3L NC Heart: Peripheral pulses intact bilaterally, Regular Rate and Rhythm, No pitting edema of bilateral LEs. Abdomen: Soft, non-tender, non-distended, no palpable masses : shah with clear yellow urine Musculoskeletal: No cyanosis or edema, No visible joint swelling Skin: Skin is warm, dry, no rashes or lesions. Psychiatric: Cooperative, appropriate mood and affect, intermittently sleeping but aroused to touch and voice, not agitated Neuro: Cranial nerves II-XII grossly intact.Sensations intact to light touch. Objective Labs 06/05/25 04:13 06/05/25 04:13 Labs: Laboratory Results - last 24 hr 06/03/25 06/04/25 07:30 05:13 WBC 20.7 H 12.2 H D RBC 3.23 L 2.72 L Hgb 11.5 L 9.7 L Hct 33.2 L 28.8 L MCV 103 H 106 H MCH 35.6 H 35.7 H MCHC 34.6 33.7 RDW Std Deviation 59.5 H 64.0 H Plt Count 121 L 126 L Neut % (Auto) 86 H 82 H Lymph % (Auto) 2 L 5 L [place] % (Auto) 11 11 Eos % (Auto) 0 1 Baso % (Auto) 0 0 Neut # (Auto) 17.7 H 9.9 H Lymph # (Auto) 0.3 L 0.6 L [place] # (Auto) 2.2 H 1.4 H Eos # (Auto) 0.0 0.1 Baso # (Auto) 0.1 0.0 Immature Gran # (Auto) 0.34 H 0.15 H Absolute Nucleated RBC 0.00 0.00 Immature Gran % 2 H 1 H Nucleated RBC % 0 0 Sodium 145 D Potassium 4.9 D Chloride 112 H Carbon Dioxide 23.8 Anion Gap 9 BUN 34 H Creatinine 3.7 H D Estim Creat Clear Calc 21.9 L eGFR 18 L BUN/Creatinine Ratio 9 L Glucose 76 Calculated Osmolality 295 Calcium 8.5 Phosphorus 3.9 Magnesium 1.6 Quality Measures Quality Measures none Assessment & Plan Assessment Current Active Medications: Generic Name Dose Route Start Last Admin Trade Name Freq PRN Reason Stop Dose Admin Acetaminophen 650 mg 06/02/25 22:53 Acetaminophen 325 Mg Tablet PO 07/02/25 22:52 Q6H PRN Fever >101.5 Ascorbic Acid 500 mg 06/03/25 21:00 06/03/25 20:22 Ascorbic Acid 250 Mg Tablet PO 07/03/25 20:59 500 mg BID DESMOND Administration Budesonide 0.5 mg 06/03/25 19:00 06/04/25 06:17 Budesonide Rt 0.5 Mg/2 Ml Nebu INH 07/03/25 18:59 0.5 mg BIDRT DESMOND Administration Divalproex Sodium 500 mg 06/03/25 21:00 06/03/25 20:22 Divalproex Sod Er 250 Mg Edward (Non-Formulary) PO 07/03/25 20:59 500 mg BID DESMOND Administration Docusate Sodium 100 mg 06/03/25 17:27 Docusate Sod 100 Mg Capsule PO 07/03/25 17:26 BID PRN bowel movement Protocol Finasteride 5 mg 06/03/25 21:00 06/03/25 20:23 Finasteride 5 Mg Tablet PO 07/03/25 20:59 5 mg BID DESMOND Administration Heparin Sodium (Porcine) 5,000 unit 06/03/25 21:00 06/04/25 02:36 Heparin Sod Inj 5000 Unit/Ml Vial SC 06/17/25 20:59 Not Given Q12HR DESMOND Meropenem 500 mg/ Sodium 50 mls @ 100 mls/hr 06/03/25 21:00 06/03/25 20:22 Chloride IV 06/10/25 20:59 100 mls/hr HS DESMOND Administration Lactated Ringer's 1,000 mls @ 125 mls/hr 06/03/25 09:49 06/04/25 04:09 Lactated Ringers IV 07/03/25 09:48 125 mls/hr .Q8H DESMOND Administration (Febuxostat [Uloric] 80 mg 06/04/25 09:00 80 Mg Tablet) PO 07/04/25 08:59 QDAY DESMOND (Linaclotide [ 145 mcg 06/04/25 07:30 06/04/25 07:17 Linzess] 145 Mcg PO 07/04/25 07:29 Not Given Capsule) AC DESMOND (Melatonin 10 Mg 10 mg 06/03/25 21:00 06/03/25 20:43 Tablet) PO 07/03/25 20:59 Not Given HS DESMOND Quetiapine Fumarate 75 mg 06/03/25 20:00 06/03/25 20:22 Quetiapine Fumarate 25 Mg Tablet PO 07/03/25 19:59 75 mg 2000 DESMOND Administration Tamsulosin HCl 0.4 mg 06/03/25 21:00 06/03/25 20:22 Tamsulosin Hcl 0.4 Mg Capsule PO 07/03/25 20:59 0.4 mg BID DESMOND Administration Zinc Sulfate 220 mg 06/03/25 18:00 06/03/25 19:37 Zinc Sulfate 220 Mg Capsule PO 07/03/25 17:59 220 mg QDAY DESMOND Administration Plan Patient is a 54-year-old male with Down syndrome with past medical history development delay, diabetes, gout, hypertension, obstructive uropathy, chronic indwelling Shah catheter due to BPH, recurrent UTIs brought into the ED on 06/02/2025 for hypotension. Admitted for UTI secondary to sepsis and COVID evaluation and management. on 3L NC, ucx with gnr, bcx ngtd # Sepsis secondary with end organ damage see #BARB - spesis resolving # Complicated UTI # COVID Pneumonitis #Chronic indwelling catheter #History of BPH s/p cystoscopy and urethral dilation Patient has a history of recurrent UTI. UA positive for leukocyte esterase, RBC 159, WBC 1488. Concern for sepsis due to labs significant for WBC 22.6, lactic acid 3.5, procalcitonin 2.38 hypotension, tachycardia. Patient received 1 L RL in the ED and Zosyn 3.375 gm. pt satting well on 3L NC, leukocytosis downtrending PLAN - blood cx NGTD @24 hrs - urine cx GNR, pending speciation - Continue IV fluids 125 cc/hr - meropenem 500 mg IV daily (06/02- - duonebs prn - vit C and zinc supplements daily - Chest PT prn - Daily labs BMP, CBC, and electrolytes #BARB on suspected CKD (Cr 4.7--> 3.7) #in setting of sepsis and severe BPH (prostate volume 78cc) #chronic bilateral hydronephrosis Likely pre renal as the pt had poor oral intake Vs obstructive uropathy in setting of BPH suspect mixed etiology of prerenal and postrenal given bilateral hydronephrosis , will defer nephrostomy tubes at this time in setting of sepsis shah was exchanged in the ED Creatinine 4.7( Baseline seems 1.9), BUN 55, EGFR 14 Prostate volume from US on 09/2024 with volume [address] AP: 02/14/24 showed severe left and monitor to advance right hydronephrosis likely related to significant prostatomegaly. 06/03: Renal US with Moderate to severe bilateral hydronephrosis -Avoid nephrotoxins -Strict I and O -Monitor renal panel -Renally dosed medications - restarted #bph medications, finasteride and tamsulosin -Nephro consulted, appreciate recs (suspect pre renal) Dr. Smith discussed case with Dr. Dow, Urologist, about patient's presentation. Nephrostomy tube not recommended as patient is unlikely to be able to tolerate the procedure with medical history of Down syndrome. #Acute on chronic anemia On admission hemoglobin 11, hematocrit 32.3, MCV 104. -Continue to monitor #IBD #Constipation - Docusate PO qday - Restart home fuboxostat 80 mg qd, linolatolide #Developmental Delay #Down syndrome - Resume home meds Divalproex Na 500mg BID, Quetiapine 75mg qHS #Hyperuricemia/gout - Home meds include Febuxostat 80mg qday Hospital management: Lines: peripheral IV Diet: renal diet , mechanical dysphagia diet GI prophylaxis: NA DVT prophylaxis: heparin 5000 sq Disposition: sepsis resolving, BARB improved with fluids. CODE STATUS: Full code Plan discussed with Dr. Pagan, Dr Camarena, and Dr. Malorie Dominguez MD PGY1 Attending Provider Attestation/Addendum I have examined the patient, reviewed labs and imaging findings, discussed the case with the resident(s), and reviewed entered orders. I agree with the plan of care as outlined in this note, with these additional summaries/recommendations: Patient and camera repairman seen at bedside. Per camera repairman patient is nonverbal and no reliable history can be obtained. Patient does wake back when waved to. Patient has had over 4 L urinary output in the last 24 hours. Patient admitted for sepsis secondary to complicated urinary tract infection. Patient has history of MDR's and started on meropenem on admission. Blood and urine cultures taken, follow-up results when available before adjusting antibiotics. Patient also found to have COVID pneumonitis although symptoms are mild and we will continue supportive treatment for this. Patient diagnosed with acute kidney injury on chronic kidney disease. On admission creatinine 4.6 and BUN 44. Baseline appears in the 2 range. Etiology for BARB is likely multifactorial secondary to prerenal and postrenal etiologies. Prerenal etiology from sepsis and post renal etiology from acute urinary retention most likely secondary to prostamegaly. Continue home finasteride and Flomax. Medical team spoke with urology and recommended against nephrostomy tubes at this time given patient has Down syndrome and good urinary output. Lactic acidosis resolved. Continue home divalproex and Seroquel for Down syndrome/agitation. Seam Stay Stitcher updated on the plan and in agreement. Per camera repairman patient has no family and is conserved. Please see residents note for additional details and management. Dr. Malorie MD
[2025-06-04] MEDS: FINASTERIDE 5 MG TABLET PO ×2 (08:44→20:40)
[2025-06-04] MEDS: ASCORBIC ACID 250 MG TABLET 500 MG PO ×2 (08:45→20:41)
[2025-06-04] MEDS: ZINC SULFATE 220 MG CAPSULE PO (08:45)
[2025-06-04] MEDS: TAMSULOSIN HCL 0.4 MG CAPSULE PO ×2 (08:45→20:41)
--- NOTE | 2025-06-04 08:51 | ESPR_ITS ---
Documentation for date of: 06/04/25 Subjective Subjective Interval history: Reason for consult: BARB History of present illness: Mr. Whitley is a 54 y/o M with PMH of Down syndrome, Developmental delay, diabetes, gout, hypertension, obstructive uropathy, chronic indwelling Shah catheter due to BPH, recurrent UTIs, presented to the hospital on 06/02/2025 due to hypotension. Patient was found to be hypotensive with Blood pressure of 80/59 during regular clinic visit and was sent to ED. Per health aide, patient was seen to be declining in mood and physical strength. Patient is unable to answer questions or interact with medical providers. Patient was admitted for UTI secondary to sepsis and COVID evaluation and management. Patient has been consulted with nephrology for management of BARB with possible CKD. Medical history: As stated above Surgical history: Denies Allergies: NKDA Medications: Pending official med rec Family history: Noncontributory Social history: Denies smoking cigarettes, drinking alcohol or using other illicit drugs ED course: In ED, patient's vitals were: Temp: 97.7F, ND:104, RR:18, BP:93/52, O2sat:96% RA. Labs showed WBC 22.6, Hgb 11.0, Hct 32.3, Na 127, BUN: 52, Cr 4.7 (Baseline around 2.0), eGFR 14 (Baseline ranging 28-40), Albumin 4.7, Lactic acid: 3.5 UA showed Urine color yellow and turbid, Urine Protein 1+, Blood 3+, Leukocyte Esterase positive, RBC 129, WBC: 1488, CXR (06/02/2025): Mild heart failure., Mild enlargement cardiac contour, prominent vascular congestion including central vascular engorgement., Mild bilateral perihilar pulmonary edema., Consider superimposed pneumonia at the lung bases. Renal US (06/03/2025): Moderate to severe bilateral hydronephrosis, Urinary bladder contracted around a Shah catheter, Prostate volume 44.1 cm no prostate nodules, Right kidney 11.2 cm cortex 1.3 cm, Left kidney 11.5 cm cortex 2.0 cm In ED, patient received LR 1L IV 999mls/hr and Zosyn 3.375 g IV X1 06/03/2025: Labs reviewed and patient examined at the bedside. Patient is unable to communicate at baseline. Currently taking Meropenem 500mg IV daily and LR 125 ml/hr. BP:97/58, Cr: 4.4, BUN:42, eGFR: 15, Lactic acid:0.9, Urine Output: 5.4L. 06/04/2025: Labs reviewed and patient examined at the bedside. Patient is unable to communicate at baseline. Clear urine in shah bag. Patient likey has recurrent UTI due to bilateral hydronephrosis even with the indwelling shah catheter. Discussed with Dr. Dow, Urologist, about patient's presentation. Nephrostomy tube not recommended as patient is unlikely to be able to tolerate the procedure with medical history of Down syndrome. Continue to monitor for renal improvement. Meropenem 500mg IV daily and LR 125 ml/hr. BP:96/65, Cr: 3.7, BUN:34, eGFR: 18, Urine Output: 4.3L. Exam Vital Signs Temp Pulse Resp BP Pulse Ox O2 Del Method O2 Flow Rate 97.4 F 91 18 92/61 100 Nasal Cannula 3 06/04/25 08:00 06/04/25 08:00 06/04/25 08:00 06/04/25 08:00 06/04/25 08:00 06/04/25 04:00 06/04/25 06:17 Narrative Exam General: No acute distress, well nourished, AAOX0 Eye: PERRL, EOMI, normal conjunctiva, no scleral icterus HENT: Normocephalic, atraumatic, moist oral mucosa Neck: Supple, non-tender, no JVD, no lymphadenopathy Lungs: Non-labored respirations, symmetric chest rise, Clear to auscultate bilaterally, No wheezing, rhonchi, crackles Heart: Peripheral pulses intact bilaterally, Regular Rate and Rhythm, No pitting edema of bilateral LEs. Abdomen: Soft, non-tender, non-distended, no palpable masses Musculoskeletal: No cyanosis or edema, No visible joint swelling Skin: Skin is warm, dry, no rashes or lesions. Psychiatric: Cooperative, appropriate mood and affect, Awake and alert, not agitated Neuro: Cranial nerves II-XII grossly intact.Sensations intact to light touch. Objective Labs 06/05/25 04:13 06/05/25 04:13 Labs: Laboratory Results - last 24 hr 06/04/25 05:13 WBC 12.2 H D RBC 2.72 L Hgb 9.7 L Hct 28.8 L MCV 106 H MCH 35.7 H MCHC 33.7 RDW Std Deviation 64.0 H Plt Count 126 L Neut % (Auto) 82 H Lymph % (Auto) 5 L [place] % (Auto) 11 Eos % (Auto) 1 Baso % (Auto) 0 Neut # (Auto) 9.9 H Lymph # (Auto) 0.6 L [place] # (Auto) 1.4 H Eos # (Auto) 0.1 Baso # (Auto) 0.0 Immature Gran # (Auto) 0.15 H Absolute Nucleated RBC 0.00 Immature Gran % 1 H Nucleated RBC % 0 Sodium 145 D Potassium 4.9 D Chloride 112 H Carbon Dioxide 23.8 Anion Gap 9 BUN 34 H Creatinine 3.7 H D Estim Creat Clear Calc 21.9 L eGFR 18 L BUN/Creatinine Ratio 9 L Glucose 76 Calculated Osmolality 295 Calcium 8.5 Phosphorus 3.9 Magnesium 1.6 Quality Measures Quality Measures none Assessment & Plan Assessment Current Active Medications: Generic Name Dose Route Start Last Admin Trade Name Freq PRN Reason Stop Dose Admin Acetaminophen 650 mg 06/02/25 22:53 Acetaminophen 325 Mg Tablet PO 07/02/25 22:52 Q6H PRN Fever >101.5 Ascorbic Acid 500 mg 06/03/25 21:00 06/04/25 08:45 Ascorbic Acid 250 Mg Tablet PO 07/03/25 20:59 500 mg BID DESMOND Administration Budesonide 0.5 mg 06/03/25 19:00 06/04/25 06:17 Budesonide Rt 0.5 Mg/2 Ml Nebu INH 07/03/25 18:59 0.5 mg BIDRT DESMOND Administration Divalproex Sodium 500 mg 06/03/25 21:00 06/03/25 20:22 Divalproex Sod Er 250 Mg Edward (Non-Formulary) PO 07/03/25 20:59 500 mg BID DESMOND Administration Docusate Sodium 100 mg 06/03/25 17:27 Docusate Sod 100 Mg Capsule PO 07/03/25 17:26 BID PRN bowel movement Protocol Finasteride 5 mg 06/03/25 21:00 06/04/25 08:44 Finasteride 5 Mg Tablet PO 07/03/25 20:59 5 mg BID DESMOND Administration Heparin Sodium (Porcine) 5,000 unit 06/03/25 21:00 06/04/25 08:45 Heparin Sod Inj 5000 Unit/Ml Vial SC 06/17/25 20:59 Not Given Q12HR DESMOND Meropenem 500 mg/ Sodium 50 mls @ 100 mls/hr 06/03/25 21:00 06/03/25 20:22 Chloride IV 06/10/25 20:59 100 mls/hr HS DESMOND Administration Lactated Ringer's 1,000 mls @ 125 mls/hr 06/03/25 09:49 06/04/25 04:09 Lactated Ringers IV 07/03/25 09:48 125 mls/hr .Q8H DESMOND Administration (Febuxostat [Uloric] 80 mg 06/04/25 09:00 06/04/25 08:45 80 Mg Tablet) PO 07/04/25 08:59 Not Given QDAY DESMOND (Linaclotide [ 145 mcg 06/04/25 07:30 06/04/25 07:17 Linzess] 145 Mcg PO 07/04/25 07:29 Not Given Capsule) AC DESMOND (Melatonin 10 Mg 10 mg 06/03/25 21:00 06/03/25 20:43 Tablet) PO 07/03/25 20:59 Not Given HS DESMOND Quetiapine Fumarate 75 mg 06/03/25 20:00 06/03/25 20:22 Quetiapine Fumarate 25 Mg Tablet PO 07/03/25 19:59 75 mg 2000 DESMOND Administration Tamsulosin HCl 0.4 mg 06/03/25 21:00 06/04/25 08:45 Tamsulosin Hcl 0.4 Mg Capsule PO 07/03/25 20:59 0.4 mg BID DESMOND Administration Zinc Sulfate 220 mg 06/03/25 18:00 06/04/25 08:45 Zinc Sulfate 220 Mg Capsule PO 07/03/25 17:59 220 mg QDAY DESMOND Administration Plan 54 y/o M with PMH of Down syndrome, Developmental delay, diabetes, gout, hypertension, obstructive uropathy, chronic indwelling Shah catheter due to BPH, recurrent UTIs, presented to the hospital on 06/02/2025 due to hypotension and was admitted for UTI secondary to sepsis and COVID evaluation and management. Patient has been consulted with nephrology for management of BARB with possible CKD. #BARB #Possible CKD -Upon admission, BUN: 52, Cr 4.7 (Baseline around 2.0), eGFR 14 (Baseline ranging 28-40) -Likely prerenal, given improvement with IV fluids/poor oral intake/hypotension VS Post renal/Obstructive uropathy in the setting of BPH. -No edema, lungs clear, mucus membranes dry. -Currently, BP:96/65, Cr: 3.7, BUN:34, eGFR: 18, Urine Output: 4.3L. -Renal US (06/03/2025): Moderate to severe bilateral hydronephrosis, Urinary bladder contracted around a Shah catheter, Prostate volume 44.1 cm no prostate nodules, Right kidney 11.2 cm cortex 1.3 cm, Left kidney 11.5 cm cortex 2.0 cm Plan: -Started 1 L IV LR 125ml/hr maintenance fluid -Avoid nephrotoxins -Renally dose medication # Sepsis # 2/2 Complicated UTI #Chronic indwelling catheter #History of BPH s/p cystoscopy and urethral dilation - History of recurrent UTI. Concern for sepsis due to labs significant for WBC 22.6, lactic acid 3.5, hypotension, tachycardia. Patient received 1 L LR in the ED and Zosyn 3.375 gm. - UA showed Urine color yellow and turbid, Urine Protein 1+, Blood 3+, Leukocyte Esterase positive, RBC 129, WBC: 1488, - Clinical picture meets 3/4 SIRS criteria: T 101.6 (>100.9 or <96.8F), RR 20 (>20/min), HR 127 (>90/min), WBC 22.6 (>12 or <4K or Bands >10%). LA 3.5 (>2), and UTI as a source of infection, Concern for Severe Sepsis - Past Urine Culture showed Pseudomonas Aeruginosa and Klebsiella Oxytoca, both sensitive to Imipenum and Ertapenem -BC (06/02/2025): No growth after 24hrs -UC (06/02/2025): GNR -Patient likey has recurrent UTI due to bilateral hydronephrosis even with the indwelling shah catheter. Need Urology eval to found out the exact source. -Discussed with Dr. Dow, Urologist, about patient's presentation. Nephrostomy tube not recommended as patient is unlikely to be able to tolerate the procedure with medical history of Down syndrome. Plan: - Continue 1 L IV LR 125ml/hr maintenance fluid - Follow-up on blood and urine cultures a.m. - Started meropenem 500 mg IV daily - Daily labs BMP, CBC, and electrolytes - Consider resuming BPH meds finasteride 5mg and tamsulosin 0.4 #Superimposed pneumonia #In setting of COVID-positive #Acute on chronic anemia #IBD #Constipation #Developmental Delay #Down syndrome #Hyperuricemia/gout -Management per Primary Hospitalist Team. Thank you for allowing us to participate in the care of your patient Assessment and plan discussed with my attending physician Dr. Luis Garcia (PGY-1)- Internal medicine resident Attending Provider Attestation/Addendum Patient seen and examined with resident physician Dr. Garcia. Note reviewed, agree with findings and recommendations. Patient seems to have BARB secondary to prerenal azotemia -continue IV fluids/antibiotics. Reviewed radiology-patient seems to have bilateral hydronephrosis despite Shah catheter. urology evaluation. Spoke to Dr. Dow-- No need for nephrostomy tubes. recurrent hydronephrosis- could be the cause for complicated UTI. spoke to primary team
--- NOTE | 2025-06-04 10:02 | PC.SS ---
Rounding: Pending urology consult/reccs, on IV ABX, DC plan back to [facility]
--- NOTE | 2025-06-04 11:35 | XR_ITS ---
Examination: CT abdomen and pelvis without contrast. Coronal 3-D reconstructions. Sagittal 2-D reconstructions. Date and time of exam:June 04, 2025, 11:57 AM INDICATIONS: Severe left and moderate to advanced right hydronephrosis on CT abdomen pelvis February 13, 2025 CTDI: vol (mGy): 12.4 DLP: (mGycm): 703 Technique: Axial images of the abdomen have been obtained, 3 mm slice thickness Intravenous contrast material has not been administered. Low dose protocols were performed. One or more of the following dose reduction techniques were used; automated exposure control, adjustment of the mA and/or KV according to patient size, use of iterative reconstruction technique. Findings: No focal liver or splenic lesions No pancreatic or adrenal mass No change in bilateral significant hydronephrosis, no change in severe left renal cortical thinning Aorta is not enlarged No bowel obstruction Significant prostatomegaly, AP dimension 5.9 cm Urinary Alvarez catheter, severe thickening of urinary bladder wall up to 23 mm Advanced degenerative disc disease upper 4 lumbar levels IMPRESSION: No change in significant bilateral hydronephrosis compared to examination February 14, 2024 Significant prostatomegaly Marked thickening of urinary bladder wall, differential would include outflow tract obstruction secondary to the prostatomegaly, cystitis, bladder carcinoma, clinical correlation advised
[2025-06-04] MEDS: DIVALPROEX SOD ER 250 MG TABER (NON-FORMULARY) 500 MG PO (20:42)
[2025-06-04] MEDS: MEROPENEM INJ 500 MG in SODIUM CHLORIDE 0.9% (Popper) 50 ML 100 MG IV (20:45)
[2025-06-04] MEDS: MELATONIN 3 MG TABLET 9 MG PO (21:02)
[2025-06-04] MEDS: HEPARIN SOD INJ 5000 UNIT/ML VIAL SC (21:04)
[2025-06-05] VITALS (8 sets, daily range): BP systolic 95–123; BP diastolic 54–84; PULSE 79–109; RESP 16–20; TEMP 36.1–36.8; O2SAT 98–101; BMI 27.4
[2025-06-05] MEDS: RINGERS LACTATED 1000 ML 1,000 ML 125 ML IV ×2 (00:15→08:44)
[2025-06-05 05:38] LABS: Basophils # (Auto) 0.1 Thou/mm3 (0.0-0.2); Basophils % (Auto) 1 % (0-2.5); Eosinophils # (Auto) 0.2 Thou/mm3 (0.0-0.5); Eosinophils % (Auto) 1 % (0-10); Hematocrit 29.1 % (41.0-53.0); Hemoglobin 9.7 g/dL (13.5-16.0); Immature Granulocytes Auto 0.16 Thou/mm3 (0.00-0.00); Lymphocytes # (Auto) 1.0 Thou/mm3 (1.0-4.8); Lymphocytes % (Auto) 10 % (10-50); Mean Corpuscular HGB Conc 33.3 g/dl (31.0-37.0); Mean Corpuscular Hemoglobin 34.6 pg (25.0-35.0); Mean Corpuscular Volume 104 fL (80-100); Monocytes # (Auto) 1.3 Thou/mm3 (0.0-0.8); Monocytes % (Auto) 12 % (0-12); Neutrophils # (Auto) 8.2 Thou/mm3 (1.8-7.7); Neutrophils % (Auto) 75 % (37-80); Nucleated Red Blood Cell # 0.00 Thou/mm3 (0.00-0.00); Nucleated Red Blood Cell % 0 /100 WBC (0); Platelet Count 142 Thou/mm3 (140-440); RDW Standard Deviation 62.8 fL (35.1-43.9); Red Blood Count 2.80 Miln/mm3 (4.50-5.90); White Blood Count 10.9 Thou/mm3 (3.8-10.6)
[2025-06-05 06:08] LABS: Anion Gap 9 (7-16); BUN/Creatinine Ratio 8 Ratio (12-20); Blood Urea Nitrogen 24 mg/dL (9-23); Calcium 9.1 mg/dL (8.3-10.6); Carbon Dioxide 24.4 mMol/L (20.0-31.0); Chloride 112 mMol/L (98-107); Creatinine (Component) 2.9 mg/dL (0.6-1.3); Estimated Creatinine Clearance 27.9 mL/min (>60); Glucose 63 mg/dL (74-106); Magnesium 1.6 mg/dL (1.6-2.6); Osmolality,Calculated 290 (275-295); Phosphorous 3.2 mg/dL (2.4-5.1); Potassium 5.3 mMol/L (3.4-5.1); Sodium 145 mMol/L (136-145); eGFR 25 See Note
[2025-06-05] MEDS: BUDESONIDE RT 0.5 MG/2 ML NEBU INH ×2 (07:36→18:57)
[2025-06-05] MEDS: DIVALPROEX SOD ER 250 MG TABER (NON-FORMULARY) 500 MG PO ×2 (08:46→21:18)
[2025-06-05] MEDS: ASCORBIC ACID 250 MG TABLET 500 MG PO ×2 (08:46→21:17)
[2025-06-05] MEDS: HEPARIN SOD INJ 5000 UNIT/ML VIAL SC ×2 (08:46→21:24)
[2025-06-05] MEDS: TAMSULOSIN HCL 0.4 MG CAPSULE PO ×2 (08:46→21:18)
[2025-06-05] MEDS: ZINC SULFATE 220 MG CAPSULE PO (08:46)
[2025-06-05] MEDS: FINASTERIDE 5 MG TABLET PO ×2 (08:47→22:19)
--- NOTE | 2025-06-05 09:41 | ESPR_ITS ---
Documentation for date of: 06/05/25 Subjective Subjective Interval history: Mr. Whitley is a 54 y/o M with PMH of Down syndrome, Developmental delay, diabetes, gout, hypertension, obstructive uropathy, chronic indwelling Shah catheter due to BPH, recurrent UTIs, presented to the hospital on 06/02/2025 due to hypotension. Patient was found to be hypotensive with Blood pressure of 80/59 during regular clinic visit and was sent to ED. Per health aide, patient was seen to be declining in mood and physical strength. Patient is unable to answer questions or interact with medical providers. Patient was admitted for UTI secondary to sepsis and COVID evaluation and management. Patient has been consulted with nephrology for management of BARB with possible CKD. Medical history: As stated above Surgical history: Denies Allergies: NKDA Medications: Pending official med rec Family history: Noncontributory Social history: Denies smoking cigarettes, drinking alcohol or using other illicit drugs ED course: In ED, patient's vitals were: Temp: 97.7F, OR:104, RR:18, BP:93/52, O2sat:96% RA. Labs showed WBC 22.6, Hgb 11.0, Hct 32.3, Na 127, BUN: 52, Cr 4.7 (Baseline around 2.0), eGFR 14 (Baseline ranging 28-40), Albumin 4.7, Lactic acid: 3.5 UA showed Urine color yellow and turbid, Urine Protein 1+, Blood 3+, Leukocyte Esterase positive, RBC 129, WBC: 1488, CXR (06/02/2025): Mild heart failure., Mild enlargement cardiac contour, prominent vascular congestion including central vascular engorgement., Mild bilateral perihilar pulmonary edema., Consider superimposed pneumonia at the lung bases. Renal US (06/03/2025): Moderate to severe bilateral hydronephrosis, Urinary bladder contracted around a Shah catheter, Prostate volume 44.1 cm no prostate nodules, Right kidney 11.2 cm cortex 1.3 cm, Left kidney 11.5 cm cortex 2.0 cm In ED, patient received LR 1L IV 999mls/hr and Zosyn 3.375 g IV X1 06/03/2025: Labs reviewed and patient examined at the bedside. Patient is unable to communicate at baseline. Currently taking Meropenem 500mg IV daily and LR 125 ml/hr. BP:97/58, Cr: 4.4, BUN:42, eGFR: 15, Lactic acid:0.9, Urine Output: 5.4L. 06/04/2025: Labs reviewed and patient examined at the bedside. Patient is unable to communicate at baseline. Clear urine in shah bag. Patient likey has recurrent UTI due to bilateral hydronephrosis even with the indwelling shah catheter. Discussed with Dr. Dow, Urologist, about patient's presentation. Nephrostomy tube not recommended as patient is unlikely to be able to tolerate the procedure with medical history of Down syndrome. Continue to monitor for renal improvement. Meropenem 500mg IV daily and LR 125 ml/hr. BP:96/65, Cr: 3.7, BUN:34, eGFR: 18, Urine Output: 4.3L. 06/05/2025: Labs reviewed and patient examined at the bedside. Patient is unable to communicate at baseline. UC showed Pseudomonas aeruginosa. Continue IV abx and supportive care. BP: 106/69, Cr: 2.9, BUN: 24, eGFR: 25, Urine Output: 4.6L Exam Vital Signs Temp Pulse Resp BP Pulse Ox O2 Del Method O2 Flow Rate 97.0 F 99 18 106/69 100 Nasal Cannula 2 06/05/25 04:00 06/05/25 07:37 06/05/25 07:37 06/05/25 04:00 06/05/25 07:37 06/05/25 04:00 06/05/25 07:37 Narrative Exam General: No acute distress, well nourished, AAOx0 Eye: PERRL, EOMI, normal conjunctiva, no scleral icterus HENT: Normocephalic, atraumatic, moist oral mucosa Neck: Supple, non-tender, no JVD, no lymphadenopathy Lungs: Non-labored respirations, symmetric chest rise, Clear to auscultate bilaterally, No wheezing, rhonchi, crackles Heart: Peripheral pulses intact bilaterally, Regular Rate and Rhythm, No pitting edema of bilateral LEs. Abdomen: Soft, non-tender, non-distended, no palpable masses Musculoskeletal: No cyanosis or edema, No visible joint swelling Skin: Skin is warm, dry, no rashes or lesions. Psychiatric: Cooperative, appropriate mood and affect, Awake and alert, not agitated Neuro: Cranial nerves II-XII grossly intact.Sensations intact to light touch. Objective Labs 06/06/25 08:17 06/06/25 08:17 Labs: Laboratory Results - last 24 hr 06/05/25 04:13 WBC 10.9 H RBC 2.80 L Hgb 9.7 L Hct 29.1 L MCV 104 H MCH 34.6 MCHC 33.3 RDW Std Deviation 62.8 H Plt Count 142 Neut % (Auto) 75 Lymph % (Auto) 10 [place] % (Auto) 12 Eos % (Auto) 1 Baso % (Auto) 1 Neut # (Auto) 8.2 H Lymph # (Auto) 1.0 [place] # (Auto) 1.3 H Eos # (Auto) 0.2 Baso # (Auto) 0.1 Immature Gran # (Auto) 0.16 H Absolute Nucleated RBC 0.00 Immature Gran % 2 H Nucleated RBC % 0 Sodium 145 Potassium 5.3 H Chloride 112 H Carbon Dioxide 24.4 Anion Gap 9 BUN 24 H Creatinine 2.9 H D Estim Creat Clear Calc 27.9 L eGFR 25 L BUN/Creatinine Ratio 8 L Glucose 63 L Calculated Osmolality 290 Calcium 9.1 Phosphorus 3.2 Magnesium 1.6 Quality Measures Quality Measures none Assessment & Plan Assessment Current Active Medications: Generic Name Dose Route Start Last Admin Trade Name Kevenq PRN Reason Stop Dose Admin Acetaminophen 650 mg 06/02/25 22:53 Acetaminophen 325 Mg Tablet PO 07/02/25 22:52 Q6H PRN Fever >101.5 Ascorbic Acid 500 mg 06/03/25 21:00 06/05/25 08:46 Ascorbic Acid 250 Mg Tablet PO 07/03/25 20:59 500 mg BID DESMOND Administration Budesonide 0.5 mg 06/03/25 19:00 06/05/25 07:36 Budesonide Rt 0.5 Mg/2 Ml Nebu INH 07/03/25 18:59 0.5 mg BIDRT DESMOND Administration Divalproex Sodium 500 mg 06/03/25 21:00 06/05/25 08:46 Divalproex Sod Er 250 Mg Edward (Non-Formulary) PO 07/03/25 20:59 500 mg BID DESMOND Administration Docusate Sodium 100 mg 06/03/25 17:27 Docusate Sod 100 Mg Capsule PO 07/03/25 17:26 BID PRN bowel movement Protocol Finasteride 5 mg 06/03/25 21:00 06/05/25 08:47 Finasteride 5 Mg Tablet PO 07/03/25 20:59 5 mg BID DESMOND Administration Heparin Sodium (Porcine) 5,000 unit 06/03/25 21:00 06/05/25 08:46 Heparin Sod Inj 5000 Unit/Ml Vial SC 06/17/25 20:59 5,000 unit Q12HR DESMOND Administration Meropenem 500 mg/ Sodium 50 mls @ 100 mls/hr 06/03/25 21:00 06/04/25 20:45 Chloride IV 06/10/25 20:59 100 mls/hr HS DESMOND Administration Lactated Ringer's 1,000 mls @ 125 mls/hr 06/03/25 09:49 06/05/25 08:44 Lactated Ringers IV 07/03/25 09:48 125 mls/hr .Q8H DESMOND Administration Magnesium Sulfate 4 gm in 50 mls @ 12.5 mls/hr 06/05/25 09:28 Magnesium Sulfate Ivpb IV 06/05/25 13:27 X1 ONE Melatonin 9 mg 06/04/25 20:55 06/04/25 21:02 Melatonin 3 Mg Tablet PO 07/03/25 20:59 9 mg HS DESMOND Administration (Febuxostat [Uloric] 80 mg 06/04/25 09:00 06/05/25 08:48 80 Mg Tablet) PO 07/04/25 08:59 Not Given QDAY DESMOND (Linaclotide [ 145 mcg 06/04/25 07:30 06/05/25 08:11 Linzess] 145 Mcg PO 07/04/25 07:29 Not Given Capsule) AC DESMOND Quetiapine Fumarate 75 mg 06/03/25 20:00 06/04/25 20:39 Quetiapine Fumarate 25 Mg Tablet PO 07/03/25 19:59 75 mg 2000 DESMOND Administration Tamsulosin HCl 0.4 mg 06/03/25 21:00 06/05/25 08:46 Tamsulosin Hcl 0.4 Mg Capsule PO 07/03/25 20:59 0.4 mg BID DESMOND Administration Zinc Sulfate 220 mg 06/03/25 18:00 06/05/25 08:46 Zinc Sulfate 220 Mg Capsule PO 07/03/25 17:59 220 mg QDAY DESMOND Administration Plan 54 y/o M with PMH of Down syndrome, Developmental delay, diabetes, gout, hypertension, obstructive uropathy, chronic indwelling Shah catheter due to BPH, recurrent UTIs, presented to the hospital on 06/02/2025 due to hypotension and was admitted for UTI secondary to sepsis and COVID evaluation and management. Patient has been consulted with nephrology for management of BARB with possible CKD. #BARB #Possible CKD -Upon admission, BUN: 52, Cr 4.7 (Baseline around 2.0), eGFR 14 (Baseline ranging 28-40) -Likely prerenal, given improvement with IV fluids/poor oral intake/hypotension VS Post renal/Obstructive uropathy in the setting of BPH. -No edema, lungs clear, mucus membranes dry. -Currently, BP: 106/69, Cr: 2.9, BUN: 24, eGFR: 25, Urine Output: 4.6L -Renal US (06/03/2025): Moderate to severe bilateral hydronephrosis, Urinary bladder contracted around a Shah catheter, Prostate volume 44.1 cm no prostate nodules, Right kidney 11.2 cm cortex 1.3 cm, Left kidney 11.5 cm cortex 2.0 cm Plan: -Started 1 L IV LR 125ml/hr maintenance fluid -Avoid nephrotoxins -Renally dose medication # Sepsis # 2/2 Complicated UTI #Chronic indwelling catheter #History of BPH s/p cystoscopy and urethral dilation - History of recurrent UTI. Concern for sepsis due to labs significant for WBC 22.6, lactic acid 3.5, hypotension, tachycardia. Patient received 1 L LR in the ED and Zosyn 3.375 gm. - UA showed Urine color yellow and turbid, Urine Protein 1+, Blood 3+, Leukocyte Esterase positive, RBC 129, WBC: 1488, - Clinical picture meets 3/4 SIRS criteria: T 101.6 (>100.9 or <96.8F), RR 20 (>20/min), HR 127 (>90/min), WBC 22.6 (>12 or <4K or Bands >10%). LA 3.5 (>2), and UTI as a source of infection, Concern for Severe Sepsis - Past Urine Culture showed Pseudomonas Aeruginosa and Klebsiella Oxytoca, both sensitive to Imipenum and Ertapenem -BC (06/02/2025): No growth after 48hrs -UC (06/02/2025): showed Pseudomonas aeruginosa. -Patient likey has recurrent UTI due to bilateral hydronephrosis even with the indwelling shah catheter. Need Urology eval to found out the exact source. -Discussed with Dr. Dow, Urologist, about patient's presentation. Nephrostomy tube not recommended as patient is unlikely to be able to tolerate the procedure with medical history of Down syndrome. Plan: - Continue 1 L IV LR 125ml/hr maintenance fluid - Follow-up on blood and urine cultures a.m. - Started meropenem 500 mg IV daily - Daily labs BMP, CBC, and electrolytes - Consider resuming BPH meds finasteride 5mg and tamsulosin 0.4 #Superimposed pneumonia #In setting of COVID-positive #Acute on chronic anemia #IBD #Constipation #Developmental Delay #Down syndrome #Hyperuricemia/gout -Management per Primary Hospitalist Team. Thank you for allowing us to participate in the care of your patient Assessment and plan discussed with my attending physician Dr. Luis Garcia ([id number])- Internal medicine resident Attending Provider Attestation/Addendum Patient seen and examined with resident physician Dr. Garcia. Note reviewed, agree with findings and recommendations. Patient currently seen in medical floor. Comfortable. Creatinine stable. Suggested to follow-up with urology. Care provider at bedside
[2025-06-05] MEDS: Magnesium Sulfate 4 GM Ivpb 4 GM/50 ML BAG IV (10:19)
[2025-06-05 13:09] LABS: Anion Gap 8 (7-16); Calcium 9.1 mg/dL (8.3-10.6); Carbon Dioxide 27.5 mMol/L (20.0-31.0); Chloride 111 mMol/L (98-107); Potassium 4.6 mMol/L (3.4-5.1); Sodium 146 mMol/L (136-145)
[2025-06-05 13:13] LABS: Albumin, Serum 2.5 gm/dL (3.5-5.0); BUN/Creatinine Ratio 10 Ratio (12-20); Blood Urea Nitrogen 28 mg/dL (9-23); Calcium (Corrected) 10.3 mg/dL (8.5-10.1); Creatinine (Component) 2.7 mg/dL (0.6-1.3); Estimated Creatinine Clearance 29.9 mL/min (>60); Glucose 84 mg/dL (74-106); Osmolality,Calculated 295 (275-295); Phosphorous 2.8 mg/dL (2.4-5.1); eGFR 27 See Note
--- NOTE | 2025-06-05 14:42 | ESPR_ITS ---
<Statement entered by Blanche Camarena MD - 06/05/25 15:03> Patient seen and examined at bedside. No acute overnight events reported. They have very good urine output and has shown increased improvement in his. His urine culture grew Pseudomonas transition patient from to ciprofloxacin. Patient will also be discharged with a Shah. Anticipate discharge within 24 to 48 hours once creatinine back to patient's baseline. Nephrology also recommended to get a CT abdomen which showed no change in patient's significant bilateral hydronephrosis or significant prostatic megaly marked thickening of the urinary bladder wall. I discussed with and supervised the advisory intern physician who took care of this patient. I personally saw and examined the patient and discussed the assessment and plan with the entire medicine team, including my attending Dr. Espana, I agree with most of the assessment and plan as documented below Blanche Camarena M.D. PGY-3 Disclaimer: Despite multiple revisions, due to the dictation software being used, the document bellow may not be free of grammatical errors including phonetic/typographic errors. However, this does not deter from our commitment to providing health care in the patient's best interest in mind. Documentation for date of: 06/05/25 Subjective Subjective Interval history: Patient is a 54-year-old male with Down syndrome with past medical history development delay, diabetes, gout, hypertension, obstructive uropathy, chronic indwelling Shah catheter due to BPH, recurrent UTIs brought into the ED on 06/02/2025 for hypotension. Admitted for UTI secondary to sepsis and COVID evaluation and management. 06/03/2025: Patient seen and examined at bedside patient nurse from facility is present to provide additional history. Patient does not speak as per his baseline he does engage with the provider. Patient is noted to have Corey-Aid colored urine in Shah bag likely secondary to trauma from changing chronic Shah catheter in the emergency department. His white blood cell count is 20 from 22 he had a Tmax overnight of 101.6 given Tylenol his heart rate was 124 and he is satting well on room air. Nephrology was consulted for suspected barb on CKD(not yet diagnosed), suspect prerenal iso sepsis vs obstructive etiology 06/04/2025: Patient seen and examined at bedside. his nurse from the facility is present to provide additional history, she states that he has poor appetite, His shah bag has clear yellow urine today. afebrile overnight. he is satting well on 3L NC. WBC 12 from 20, improving. (per chart review in 2021, pt was seen by urology and nephrology, who recommended nephrostomy tube for the hydronephrosis at that time, however pt could not tolerate the procedure then)Dr. Smith has contacted Dr. Cote (urology), no formal consult in. Blood Cx NGTD @24 hrs, Urine Cx GNR, pending speciation 06/05/2024 patient seen and examined at bedside nursing facility is present to provide additional history she states that he had improved appetite and completed all of his food. He continues to have significant urine output. WBC improving 10 from 12. Continues to be satting well on 3 L nasal cannula creatinine improving with IV fluids 2.9 and 3.7. Urine culture growing Pseudomonas plan for total UTI course of 14 days will transition meropenem (06/02- 06/05) to ciprofloxacin 500 mg BID (06/05-06/16) Exam Vital Signs Temp Pulse Resp BP Pulse Ox O2 Del Method O2 Flow Rate 97.4 F 79 18 95/54 L 101 H Nasal Cannula 2 06/05/25 12:00 06/05/25 12:00 06/05/25 12:00 06/05/25 12:00 06/05/25 12:00 06/05/25 08:00 06/05/25 08:00 Narrative Exam General: No acute distress, well nourished, AAOX0, Eye: PERRL, EOMI, normal conjunctiva, no scleral icterus HENT: Normocephalic, atraumatic, moist oral mucosa Neck: Supple, non-tender, no JVD, no lymphadenopathy Lungs: Non-labored respirations, symmetric chest rise, Clear to auscultate bilaterally, No wheezing, rhonchi, crackles on 3L NC Heart: Peripheral pulses intact bilaterally, Regular Rate and Rhythm, No pitting edema of bilateral LEs. Abdomen: Soft, non-tender, non-distended, no palpable masses : shah with clear yellow urine Musculoskeletal: No cyanosis or edema, No visible joint swelling Skin: Skin is warm, dry, no rashes or lesions. Psychiatric: Cooperative, appropriate mood and affect, intermittently sleeping but aroused to touch and voice, not agitated Neuro: Cranial nerves II-XII grossly intact.Sensations intact to light touch. Objective Labs 06/05/25 04:13 06/05/25 12:34 Labs: Laboratory Results - last 24 hr 06/05/25 06/05/25 04:13 12:34 WBC 10.9 H RBC 2.80 L Hgb 9.7 L Hct 29.1 L MCV 104 H MCH 34.6 MCHC 33.3 RDW Std Deviation 62.8 H Plt Count 142 Neut % (Auto) 75 Lymph % (Auto) 10 [place] % (Auto) 12 Eos % (Auto) 1 Baso % (Auto) 1 Neut # (Auto) 8.2 H Lymph # (Auto) 1.0 [place] # (Auto) 1.3 H Eos # (Auto) 0.2 Baso # (Auto) 0.1 Immature Gran # (Auto) 0.16 H Absolute Nucleated RBC 0.00 Immature Gran % 2 H Nucleated RBC % 0 Sodium 145 146 H Potassium 5.3 H 4.6 D Chloride 112 H 111 H Carbon Dioxide 24.4 27.5 Anion Gap 9 8 BUN 24 H 28 H Creatinine 2.9 H D 2.7 H Estim Creat Clear Calc 27.9 L 29.9 L eGFR 25 L 27 L BUN/Creatinine Ratio 8 L 10 L Glucose 63 L 84 Calculated Osmolality 290 295 Calcium 9.1 9.1 Corrected Calcium 10.3 H Phosphorus 3.2 2.8 Magnesium 1.6 Albumin 2.5 L Quality Measures Quality Measures VTE prophylaxis Assessment & Plan Assessment Current Active Medications: Generic Name Dose Route Start Last Admin Trade Name Freq PRN Reason Stop Dose Admin Acetaminophen 650 mg 06/02/25 22:53 Acetaminophen 325 Mg Tablet PO 07/02/25 22:52 Q6H PRN Fever >101.5 Ascorbic Acid 500 mg 06/03/25 21:00 06/05/25 08:46 Ascorbic Acid 250 Mg Tablet PO 07/03/25 20:59 500 mg BID DESMOND Administration Budesonide 0.5 mg 06/03/25 19:00 06/05/25 07:36 Budesonide Rt 0.5 Mg/2 Ml Nebu INH 07/03/25 18:59 0.5 mg BIDRT DESMOND Administration Divalproex Sodium 500 mg 06/03/25 21:00 06/05/25 08:46 Divalproex Sod Er 250 Mg Edward (Non-Formulary) PO 07/03/25 20:59 500 mg BID DESMOND Administration Docusate Sodium 100 mg 06/03/25 17:27 Docusate Sod 100 Mg Capsule PO 07/03/25 17:26 BID PRN bowel movement Protocol Finasteride 5 mg 06/03/25 21:00 06/05/25 08:47 Finasteride 5 Mg Tablet PO 07/03/25 20:59 5 mg BID DESMOND Administration Heparin Sodium (Porcine) 5,000 unit 06/03/25 21:00 06/05/25 08:46 Heparin Sod Inj 5000 Unit/Ml Vial SC 06/17/25 20:59 5,000 unit Q12HR DESMOND Administration Meropenem 500 mg/ Sodium 50 mls @ 100 mls/hr 06/03/25 21:00 06/04/25 20:45 Chloride IV 06/10/25 20:59 100 mls/hr HS DESMOND Administration Lactated Ringer's 1,000 mls @ 125 mls/hr 06/03/25 09:49 06/05/25 08:44 Lactated Ringers IV 07/03/25 09:48 125 mls/hr .Q8H DESMOND Administration Melatonin 9 mg 06/04/25 20:55 06/04/25 21:02 Melatonin 3 Mg Tablet PO 07/03/25 20:59 9 mg HS DESMOND Administration (Febuxostat [Uloric] 80 mg 06/04/25 09:00 06/05/25 08:48 80 Mg Tablet) PO 07/04/25 08:59 Not Given QDAY DESMOND (Linaclotide [ 145 mcg 06/04/25 07:30 06/05/25 12:10 Linzess] 145 Mcg PO 07/04/25 07:29 Not Given Capsule) AC DESMOND Quetiapine Fumarate 75 mg 06/03/25 20:00 06/04/25 20:39 Quetiapine Fumarate 25 Mg Tablet PO 07/03/25 19:59 75 mg 2000 DESMOND Administration Tamsulosin HCl 0.4 mg 06/03/25 21:00 06/05/25 08:46 Tamsulosin Hcl 0.4 Mg Capsule PO 07/03/25 20:59 0.4 mg BID DESMOND Administration Zinc Sulfate 220 mg 06/03/25 18:00 06/05/25 08:46 Zinc Sulfate 220 Mg Capsule PO 07/03/25 17:59 220 mg QDAY DESMOND Administration Plan Patient is a 54-year-old male with Down syndrome with past medical history development delay, diabetes, gout, hypertension, obstructive uropathy, chronic indwelling Shah catheter due to BPH, recurrent UTIs brought into the ED on 06/02/2025 for hypotension. Admitted for UTI secondary to sepsis and COVID evaluation and management. on 3L NC, ucx with gnr, ecoli, narrowed abx , bcx ngtd # Sepsis secondary with end organ damage see #BARB - resolving # Complicated UTI # COVID Pneumonitis #Chronic indwelling catheter #History of BPH s/p cystoscopy and urethral dilation Patient has a history of recurrent UTI. UA positive for leukocyte esterase, RBC 159, WBC 1488. Concern for sepsis due to labs significant for WBC 22.6, lactic acid 3.5, procalcitonin 2.38 hypotension, tachycardia. Patient received 1 L RL in the ED and Zosyn 3.375 gm. pt satting well on 3L NC, leukocytosis downtrending PLAN - blood cx NGTD @48 hrs - urine cx GNR, e coli, narrow abx according to sensitivities - Continue IV fluids 100 1/2 NS cc/hr - d/c meropenem 500 mg IV daily (06/02- 06/05) - ciprofloxacin 500 mg PO BID (06/05- 06/16)- 14 day course - duonebs prn - vit C and zinc supplements daily - Chest PT prn - Daily labs BMP, CBC, and electrolytes #BARB on suspected CKD (Cr 4.7-->2.7) -- IMPROVING #in setting of sepsis and severe BPH (prostate volume 78cc) #chronic bilateral hydronephrosis Likely pre renal as the pt had poor oral intake Vs obstructive uropathy in setting of BPH suspect mixed etiology of prerenal and postrenal given bilateral hydronephrosis , will defer nephrostomy tubes at this time in setting of sepsis shah was exchanged in the ED Creatinine 4.7( Baseline seems 1.9), BUN 55, EGFR 14 Prostate volume from US on 09/2024 with volume [address] AP: 02/14/24 showed severe left and monitor to advance right hydronephrosis likely related to significant prostatomegaly. 06/03: Renal US with Moderate to severe bilateral hydronephrosis -Avoid nephrotoxins -Strict I and O -Monitor renal panel -Renally dosed medications - cont IV fluids - restarted #bph medications, finasteride and tamsulosin -Nephro consulted, appreciate recs (suspect pre renal) Dr. Smith discussed case with Dr. Dow, Urologist, about patient's presentation. Nephrostomy tube not recommended as patient is unlikely to be able to tolerate the procedure with medical history of Down syndrome. #electrolyte abnormalities mild hyperkalemia- resolved mild hypercalcemia mild hypernatremia mild hyperchloremia - changed iv fluids for LR to 1/2 NS - replete as indicated #Acute on chronic anemia On admission hemoglobin 11, hematocrit 32.3, MCV 104. -Continue to monitor #IBD #Constipation - Docusate PO qday - Restart home fuboxostat 80 mg qd, linolatolide #Developmental Delay #Down syndrome - Resume home meds Divalproex Na 500mg BID, Quetiapine 75mg qHS #Hyperuricemia/gout - Home meds include Febuxostat 80mg qday Hospital management: Lines: peripheral IV Diet: renal diet , mechanical dysphagia diet GI prophylaxis: NA DVT prophylaxis: heparin 5000 sq Disposition: sepsis resolving, BARB improved with fluids. CODE STATUS: Full code Plan discussed with Dr. Pagan, Dr Camarena, and Dr. Malorie Dominguez MD PGY1 Attending Provider Attestation/Addendum I have examined the patient, reviewed labs and imaging findings, discussed the case with the resident(s), and reviewed entered orders. I agree with the plan of care as outlined in this note, with these additional summaries/recommendations: Patient and hydrodynamics teacher seen at bedside. No acute overnight events. No history can be obtained from patient. Patient has had over 4 L urinary output in the last 24 hours. Patient admitted for sepsis secondary to complicated urinary tract infection. Sepsis now resolved. Patient has history of MDR's and originally started on meropenem. Ur cx grew Pseudomonas aeruginosa and antibiotics adjusted. Blood cultures preliminarily show no growth at 24 hours. Patient also found to have COVID pneumonitis although symptoms are mild and we will continue supportive treatment for this. Patient diagnosed with acute kidney injury on chronic kidney disease. On admission creatinine 4.6 and BUN 44. Baseline appears in the 2 range. Etiology for BARB is likely multifactorial secondary to prerenal and postrenal etiologies. Prerenal etiology from sepsis and post renal etiology from acute urinary retention most likely secondary to prostamegaly. Continue home finasteride and Flomax. Medical team spoke with urology and recommended against nephrostomy tubes at this time given patient has Down syndrome and good urinary output. Lactic acidosis resolved. Continue home divalproex and Seroquel for Down syndrome/agitation. Building Energy Consultant updated on the plan and in agreement. Per hydrodynamics teacher patient has no family and is conserved. Please see residents note for additional details and management. Dr. Malorie MD
--- NOTE | 2025-06-05 15:19 | PC.SS ---
Rounding: Renal function decline, COVID +, DC plan [facility]
[2025-06-05] MEDS: SODIUM CHLORIDE 0.45 % 1,000 ML 100 ML IV (15:57)
[2025-06-05] MEDS: MELATONIN 3 MG TABLET 9 MG PO (21:17)
[2025-06-05] MEDS: CIPROFLOXACIN HCL 250 MG TABLET 500 MG PO (21:18)
[2025-06-06] VITALS: BP 106/67; PULSE 87; PULSE 91; RESP 15; TEMP 36.3; O2SAT 98
[2025-06-06 04:00] VITALS: BP 128/65; PULSE 100; PULSE 93; RESP 20; TEMP 36.6; O2SAT 99
[2025-06-06 07:01] VITALS: PULSE 96; PULSE 97; RESP 18; O2SAT 96
[2025-06-06] MEDS: BUDESONIDE RT 0.5 MG/2 ML NEBU INH (07:01)
[2025-06-06 08:00] VITALS: BP 119/85; PULSE 97; PULSE 98; RESP 16; TEMP 36.3; O2SAT 98
[2025-06-06] MEDS: TAMSULOSIN HCL 0.4 MG CAPSULE PO (08:25)
[2025-06-06] MEDS: ZINC SULFATE 220 MG CAPSULE PO (08:25)
[2025-06-06] MEDS: ASCORBIC ACID 250 MG TABLET 500 MG PO (08:25)
[2025-06-06] MEDS: DIVALPROEX SOD ER 250 MG TABER (NON-FORMULARY) 500 MG PO (08:25)
[2025-06-06] MEDS: HEPARIN SOD INJ 5000 UNIT/ML VIAL SC (08:27)
[2025-06-06] MEDS: FINASTERIDE 5 MG TABLET PO (08:30)
[2025-06-06] MEDS: CIPROFLOXACIN HCL 250 MG TABLET 500 MG PO (08:30)
[2025-06-06 08:39] LABS: Basophils # (Auto) 0.1 Thou/mm3 (0.0-0.2); Basophils % (Auto) 1 % (0-2.5); Eosinophils # (Auto) 0.2 Thou/mm3 (0.0-0.5); Eosinophils % (Auto) 2 % (0-10); Hematocrit 29.5 % (41.0-53.0); Hemoglobin 10.0 g/dL (13.5-16.0); Immature Granulocytes Auto 0.20 Thou/mm3 (0.00-0.00); Lymphocytes # (Auto) 1.3 Thou/mm3 (1.0-4.8); Lymphocytes % (Auto) 15 % (10-50); Mean Corpuscular HGB Conc 33.9 g/dl (31.0-37.0); Mean Corpuscular Hemoglobin 35.1 pg (25.0-35.0); Mean Corpuscular Volume 104 fL (80-100); Monocytes # (Auto) 0.8 Thou/mm3 (0.0-0.8); Monocytes % (Auto) 10 % (0-12); Neutrophils # (Auto) 6.1 Thou/mm3 (1.8-7.7); Neutrophils % (Auto) 71 % (37-80); Nucleated Red Blood Cell # 0.00 Thou/mm3 (0.00-0.00); Nucleated Red Blood Cell % 0 /100 WBC (0); Platelet Count 227 Thou/mm3 (140-440); RDW Standard Deviation 62.8 fL (35.1-43.9); Red Blood Count 2.85 Miln/mm3 (4.50-5.90); White Blood Count 8.6 Thou/mm3 (3.8-10.6)
[2025-06-06 09:00] LABS: Alanine Aminotransferase 10 U/L (10-49); Albumin, Serum 2.8 gm/dL (3.5-5.0); Albumin/Globulin Ratio 0.6 (1.2-2.2); Alkaline Phosphatase 90 U/L (46-116); Anion Gap 8 (7-16); Aspartate Amino Transferase 33 U/L (0-34); BUN/Creatinine Ratio 13 Ratio (12-20); Bilirubin,Total 0.3 mg/dL (0.3-1.2); Blood Urea Nitrogen 33 mg/dL (9-23); Calcium 8.8 mg/dL (8.3-10.6); Calcium (Corrected) 9.8 mg/dL (8.5-10.1); Carbon Dioxide 28.1 mMol/L (20.0-31.0); Chloride 107 mMol/L (98-107); Creatinine (Component) 2.6 mg/dL (0.6-1.3); Estimated Creatinine Clearance 31.1 mL/min (>60); Globulin 4.6 gm/dL (2.3-3.5); Glucose 73 mg/dL (74-106); Magnesium 2.2 mg/dL (1.6-2.6); Osmolality,Calculated 291 (275-295); Phosphorous 2.7 mg/dL (2.4-5.1); Potassium 4.3 mMol/L (3.4-5.1); Sodium 143 mMol/L (136-145); Total Protein 7.4 gm/dL (5.7-8.2); eGFR 28 See Note
[2025-06-06 11:30] VITALS: PULSE 83
[2025-06-06 12:00] VITALS: BP 100/69; PULSE 89; RESP 16; TEMP 36.2; O2SAT 98
--- NOTE | 2025-06-06 12:33 | ESDS_ITS ---
Planned Discharge Date 06/06/25 DS: Providers Provider Date of admission: 06/02/25 22:42 Primary care physician: Robbie Carroll PA-C Admitting Provider: Kavitha Dey MD Attending Provider on Admission: Damon Espana MD Consults: 06/03/25 08:00 Referral Infection Control Routine Comment: Reason for Infection Control Referral: Patient In Isolation 06/03/25 11:16 Consult to Nephrology Routine Comment: c/f ckd Consulting Provider: Beckie Smith Attending Provider on DC: Damon Espana MD Discharging Provider: Damon Espana MD DS: Diagnosis Problem List Completed Was Problem List Reviewed/Reconciled?: Yes Hospital Course Hospital Course Hospital course: Hospital Course: The patient was brought to the ED by his health aide for decreased interaction, malaise, and cloudy urine. On arrival, he was hypotensive (80s/50s), mildly tachycardic (HR 104), and afebrile. Laboratory studies revealed WBC 22, creatinine 4.5, and UA positive for leukocyte esterase and gram-negative bacteria. He tested COVID-19 positive. Chest X-ray demonstrated bibasilar pneumonia. He was started on IV fluids and empiric antibiotics (zosyn, then broadened to meropenem given his hx of recurrent catheter associated UTI). His Shah catheter was exchanged in the ED. Nephrology was consulted for BARB and suspected CKD, with renal ultrasound showing bilateral hydronephrosis. His BARB resolved with IV fluids. Urology was curbsided; however, per his urologist Dr. Cote, nephrostomy tubes were not recommended given his developmental delay and inability to tolerate the procedure. Blood cultures remained negative. Urine culture grew Pseudomonas. He was transitioned from IV meropenem to oral ciprofloxacin 500 mg BID to complete a 14 day course. His WBC count downtrended, appetite improved, and oxygen requirements decreased. Discharge Diagnoses: * Complicated UTI due to Pseudomonas * Community-acquired pneumonia, COVID-19 positive * Acute kidney injury (resolved), likely multifactorial (pre-renal from sepsis vs obstructive etiology) * Obstructive uropathy with bilateral hydronephrosis * Hypertension * Diabetes mellitus Condition at Discharge: * Stable, tolerating diet, * Afebrile, normotensive, creatinine improved * Shah catheter in place with clear urine Discharge Medications: * Ciprofloxacin 500 mg PO BID ? 10 days to complete a 14 days antibiotic course * Continue home medications for diabetes and hypertension * stop taking indomethacin and other nephrotoxic agents * continue wearing your mask around your caretakers and have your care takers wear masks around you. Follow-up: * Primary care provider in 1 week * Urology follow-up for ongoing management of obstructive uropathy and chronic Shah catheter (exchange shah every 4-6 weeks) * Nephrology follow-up to monitor renal function, repeat renal labs in 1 week * Return to ED for fever, chills, worsening urinary symptoms, flank pain, shortness of breath, chest pain, or altered mental status Plan discussed with Dr. Malorie Dominguez MD PGY1 Time Spent with Patient Time attestation: Total time spent providing and/or coordinating discharge services: Time spent: Greater than 30 minutes Exam Vital Signs Temp Pulse Resp BP Pulse Ox O2 Del Method O2 Flow Rate 97.4 F 83 16 119/85 H 98 Nasal Cannula 2 06/06/25 08:00 06/06/25 11:30 06/06/25 08:00 06/06/25 08:00 06/06/25 08:00 06/06/25 08:00 06/06/25 08:00 Narrative Exam General: No acute distress, well nourished, AAOX0, Eye: PERRL, EOMI, normal conjunctiva, no scleral icterus HENT: Normocephalic, atraumatic, dry oral mucosa, lips cracked Neck: Supple, non-tender, no JVD, no lymphadenopathy Lungs: Non-labored respirations, symmetric chest rise, Clear to auscultate bilaterally, No wheezing, rhonchi, crackles on 2-3L NC Heart: Peripheral pulses intact bilaterally, Regular Rate and Rhythm, No pitting edema of bilateral LEs. Abdomen: Soft, non-tender, non-distended, no palpable masses : shah with clear yellow urine Musculoskeletal: No cyanosis or edema, No visible joint swelling Skin: Skin is warm, dry, no rashes or lesions. Psychiatric: Cooperative, appropriate mood and affect, intermittently sleeping but aroused to touch and voice, not agitated Neuro: Cranial nerves II-XII grossly intact.Sensations intact to light touch. Discharge Plan Plan Patient Disposition: HOME (Self Care) Prescriptions/Referrals Prescriptions/Med Rec: New ciprofloxacin HCl 500 mg tablet 500 mg PO BID 10 Days Qty: 20 0RF Continued diphenhydramine HCl [Benadryl] 25 mg capsule 25 mg PO HS divalproex 500 mg Tablet Extended Release 24 Hr 500 mg PO BID Rx Instructions: @7848-2701 quetiapine [Seroquel] 25 mg Tablet 75 mg PO 2000 melatonin 10 mg Tablet 10 mg PO HS magnesium oxide 400 mg magnesium Tablet 400 mg PO BID Linzess 145 mcg Capsule 145 mcg PO AC Rx Instructions: TAKE 1 CAPSULE ORALLY DAILY AT LEAST 30 MINUTES BEFORE THE FIRST MEAL OF THE DAY ketoconazole 2 % Cream See Rx Instructions .ROUTE .COMPLEX Rx Instructions: APPLY TO AFFECTED AREAS OF BOTH FEET DAILY AT BEDTIME finasteride 5 mg Tablet 5 mg PO BID tamsulosin 0.4 mg Capsule 0.4 mg PO BID docusate sodium 100 mg Capsule 100 mg PO BID PRN (Reason: bowel movement) Rx Instructions: prn if no bm on the 3rd day by 1900. loratadine 10 mg Tablet 10 mg PO QDAY metoprolol tartrate 50 mg Tablet 50 mg PO BID Rx Instructions: Hold if SBP<90 or HR<60 febuxostat [Uloric] 80 mg Tablet 80 mg PO QDAY loperamide [Anti-Diarrheal (loperamide)] 2 mg tablet 2 mg PO Q6H PRN (Reason: loose stool) Qty: 14 0RF [id number] Tablet 1 tab PO QDAY Rx Instructions: centrum silver quetiapine 25 mg tablet 25 mg PO 0700,1500 Held indomethacin 50 mg Capsule 50 mg PO TID PRN (Reason: Pain) Hold Instructions: Resume on 06/16/25. Resume after seeing your PCP Rx Instructions: administer with food or milk. PRN for gout flare up. Referrals: Devyn Dow MD [Physician, Urology] Beckie Smith MD [Physician, Nephrology] Robbie Carroll PA-C [Primary Care Provider, Emergency Medicine] Patient/Caregiver Discharge Instructions Other Discharge Activity Instructions:: Please take your new antibiotic, Ciprofloxacin 500mg twice daily for 10 more days. Please take your home medications as prescribed. Please keep your shah, and exchange every 4-6 weeks, and follow up with urology outpatient. Please see your PCP, nephrology, and urology within 1 week. Please repeat your renal labs in 1 week. Please avoid nephrotoxic agents. Please continue wearing a mask around your caretakers, and have your caretakers wear masks when around you. Education Materials: COVID-19 Home Care, ED Bladder Infection, Male (Adult) Print Language: Serbian Stand Alone Forms: Kimberlee Award Info., Patient Portal Info Letter Discharge Order Discharge Orders: Discharge (Routine); Ordered 06/06/25 Ordered By: Blanche Camarena Quality Discharge Quality Measures VTE prophylaxis Attestestation MD Attestation I have examined the patient, reviewed labs and imaging findings, discussed the case with the resident(s), and reviewed entered orders. I agree with the plan of care as outlined in this note. Time Spent: [address] Malorie MD
== END 2025-06-06 12:36 | disposition home or self-care (01) | DRG 698 ==
LOC: SERX 21:39 → SERHOLD 23:21 → S3SX 06-03 00:41
PROVIDERS: Nurse Practitioner Family; Physician Assistant; Admitting Provider Student in an Organized Health Care Education/Training Program; Emergency Provider Emergency Medicine; PCP Physician Assistant; Visit Provider Student in an Organized Health Care Education/Training Program
DX: T83.518A Infection and inflammatory reaction due to other urinary catheter, initial encounter (principal); J12.82 Pneumonia due to coronavirus disease 2019; J18.9 Pneumonia, unspecified organism; U07.1 COVID-19; N39.0 Urinary tract infection, site not specified; N17.9 Acute kidney failure, unspecified; E87.0 Hyperosmolality and hypernatremia; E87.1 Hypo-osmolality and hyponatremia; E87.20 Acidosis, unspecified; I13.0 Hypertensive heart and chronic kidney disease with heart failure and stage 1 through stage 4 chronic kidney disease, or unspecified chronic kidney disease; N13.6 Pyonephrosis; Q90.9 Down syndrome, unspecified; Z87.440 Personal history of urinary (tract) infections; N40.0 Benign prostatic hyperplasia without lower urinary tract symptoms; E11.9 Type 2 diabetes mellitus without complications; M10.9 Gout, unspecified; I95.9 Hypotension, unspecified; I12.9 Hypertensive chronic kidney disease with stage 1 through stage 4 chronic kidney disease, or unspecified chronic kidney disease; N18.9 Chronic kidney disease, unspecified; K59.00 Constipation, unspecified; D63.1 Anemia in chronic kidney disease; E11.22 Type 2 diabetes mellitus with diabetic chronic kidney disease; E83.52 Hypercalcemia; E87.5 Hyperkalemia; I50.9 Heart failure, unspecified; E87.8 Other disorders of electrolyte and fluid balance, not elsewhere classified; Y84.6 Urinary catheterization as the cause of abnormal reaction of the patient, or of later complication, without mention of misadventure at the time of the procedure; B96.5 Pseudomonas (aeruginosa) (mallei) (pseudomallei) as the cause of diseases classified elsewhere
CPT/HCPCS: 36415; 71045; 74176; 76770; 80048; 80053; 80069; 81001; 83605; 83735; 84100; 84145; 85025; 85610; 85730; 87040; 87077; 87081; 87086; 87186; 87400; 87811; 93225; 94640; 94664; 94667; 96361; 96365; 99285; A4314; J1644; J2185; J2250; J2543; J3475; J7030; J7050; J7120; A9270

== ENCOUNTER 2025-07-16 06:20 | Day surgery (SDC) | payer MEDICARE, MEDICAID, SELFPAY ==
[2025-07-15 08:32] VITALS: BMI 29.2
--- NOTE | 2025-07-15 12:29 | ESHP_ITS ---
RE: JENNA BRAND : 1970 DATE OF ADMISSION: 07/15/2025 HISTORY OF PRESENT ILLNESS: Patient was in the hospital with kidney problems. He is a mentally retarded child who is in the retirement. He has a Alvarez catheter in place. Recently, he was admitted with elevated serum creatinine and he got a little better. He is now scheduled to have cystoscopy to evaluate his lower urinary tract. Clinical examination reveals patient who is mentally retarded. PREVIOUS SURGERY: None. ALLERGIES: NONE. PAST MEDICAL HISTORY: No history of diabetes mellitus or hypertension. He has history of recurrent UTIs. He has a Alvarez catheter in place. Patient has hypospadias at penoscrotal junction in his external meatus. PHYSICAL EXAMINATION: HEENT: Normal. Neck: Supple. Lungs: Clear. Cardiovascular: Heart sounds are normal. Abdomen: Soft without any organomegaly. No guarding. No rigidity. Extremities: Normal. : Phallus is normal. There is a hypospadias. Alvarez catheter in place which is off and on bloody and has history of recurrent UTIs. IMPRESSION: 1. Mental retardation. 2. Prostatic obstruction. 3. Prostatism. 4. Elevated serum creatinine. PLAN: Cystoscopy to evaluate the lower urinary tract. DT: 12:01:42 TT: 12:27:00 Ref: [id number] - TID: [id number]
--- NOTE | 2025-07-15 14:08 | SUR.PREOP ---
Pt has Down syndrome, the lab called, pt did not cooperate with blood drawn or EKG, Dr Vazquez notified, Labs to be drawn on arrival.
[2025-07-16] VITALS (7 sets, daily range): BP systolic 97–114; BP diastolic 55–80; PULSE 63–82; RESP 12–18; TEMP 36–36.2; O2SAT 93–100; BMI 29.4
--- NOTE | 2025-07-16 06:00 | EKG_ITS ---
[facility] Test Date: 2025-07-16 Pat Name: JENNA BRAND Department: Room: - Gender: Male Instructor Watch Assembly: BARRY : 1970 Requested By: Yassine Vazquez Order Number: [id number] Reading MD: Yassine Vazquez Measurements Intervals [place] Rate: 62 P: 40 MS: 168 QRS: 1 QRSD: 79 T: -7 QT: 406 QTc: 414 Interpretive Statements SINUS RHYTHM NONSPECIFIC ST ELEVATION Compared to ECG 06/20/2022 11:21:42 ST (T wave) deviation now present T-wave abnormality no longer present /store/S0/[id number].pdf
[2025-07-16 07:28] LABS: Basophils # (Auto) 0.1 Thou/mm3 (0.0-0.2); Basophils % (Auto) 2 % (0-2.5); Eosinophils # (Auto) 0.2 Thou/mm3 (0.0-0.5); Eosinophils % (Auto) 4 % (0-10); Hematocrit 36.2 % (41.0-53.0); Hemoglobin 12.3 g/dL (13.5-16.0); Immature Granulocytes Auto 0.02 Thou/mm3 (0.00-0.00); Lymphocytes # (Auto) 1.2 Thou/mm3 (1.0-4.8); Lymphocytes % (Auto) 33 % (10-50); Mean Corpuscular HGB Conc 34.0 g/dl (31.0-37.0); Mean Corpuscular Hemoglobin 35.9 pg (25.0-35.0); Mean Corpuscular Volume 106 fL (80-100); Monocytes # (Auto) 0.4 Thou/mm3 (0.0-0.8); Monocytes % (Auto) 12 % (0-12); Neutrophils # (Auto) 1.7 Thou/mm3 (1.8-7.7); Neutrophils % (Auto) 48 % (37-80); Nucleated Red Blood Cell # 0.00 Thou/mm3 (0.00-0.00); Nucleated Red Blood Cell % 0 /100 WBC (0); Platelet Count 186 Thou/mm3 (140-440); RDW Standard Deviation 63.4 fL (35.1-43.9); Red Blood Count 3.43 Miln/mm3 (4.50-5.90); White Blood Count 3.6 Thou/mm3 (3.8-10.6)
[2025-07-16 07:29] LABS: Alanine Aminotransferase 14 U/L (10-49); Albumin, Serum 3.4 gm/dL (3.5-5.0); Albumin/Globulin Ratio 0.9 (1.2-2.2); Alkaline Phosphatase 64 U/L (46-116); Anion Gap 10 (7-16); Aspartate Amino Transferase 34 U/L (0-34); BUN/Creatinine Ratio 19 Ratio (12-20); Bilirubin,Total 0.3 mg/dL (0.3-1.2); Blood Urea Nitrogen 47 mg/dL (9-23); Calcium 8.6 mg/dL (8.3-10.6); Calcium (Corrected) 9.1 mg/dL (8.5-10.1); Carbon Dioxide 25.0 mMol/L (20.0-31.0); Chloride 106 mMol/L (98-107); Creatinine (Component) 2.5 mg/dL (0.6-1.3); Estimated Creatinine Clearance 29.9 mL/min (>60); Globulin 3.6 gm/dL (2.3-3.5); Glucose 79 mg/dL (74-106); Osmolality,Calculated 292 (275-295); Potassium 5.1 mMol/L (3.4-5.1); Sodium 141 mMol/L (136-145); Total Protein 7.0 gm/dL (5.7-8.2); eGFR 29 See Note
--- NOTE | 2025-07-16 08:32 | SUR.PREOP ---
Patient expressed gratitude for prayer before their procedure.
--- NOTE | 2025-07-16 09:58 | SUR.PHASEI ---
pt received from OR in recovery bay 2. pt asleep but responds to voice, breathing unlabored on oxymask 4l. v/s stable. pt has shah catheter in place. report received from Jelani Akbar and Dr. Vazquez.
--- NOTE | 2025-07-16 10:16 | ESOP_ITS ---
RE: JENNA BRAND : 1970 DATE OF OPERATION: 07/16/2025 PREOPERATIVE DIAGNOSES: Down syndrome, developmental disability, mental retardation, chronic indwelling Alvarez catheter, history of prostate enlargement, history of chronic renal failure, bilateral hydronephrosis in the past, serum creatinine of 2.4. POSTOPERATIVE DIAGNOSES: Down syndrome, developmental disability, mental retardation, chronic indwelling Alvarez catheter, history of prostate enlargement, history of chronic renal failure, bilateral hydronephrosis in the past, serum creatinine of 2.4. PROCEDURE: Cystoscopy. ANESTHESIA: Monitored anesthesia by Dr. Vazquez. INDICATION: Patient is a 54-year-old Down syndrome with a mental retardation and developmental disability. He is in correction. He has a chronic indwelling Alvarez catheter. He has a penoscrotal hypospadias. His serum creatinine is 2.4. His urine is grossly yellow and clear. He is now scheduled to have cystoscopy. DESCRIPTION OF PROCEDURE: After the patient was brought to the operating table under adequate monitored anesthesia by Dr. Vaqzuez, he was placed in dorsal lithotomy position. The Alvarez catheter from the bladder was removed. The Alvarez catheter which was removed contained in the bag a lot of clear yellow urine. So, he is making enough urine. Parts were prepped and draped in the usual fashion. Cystoscopy was done which revealed penoscrotal hypospadias. Proximal urethra is open. Prostatic urethra revealed moderate enlargement of prostate which is bilobed. A scope was introduced in the bladder. There are no intravesical stones or tumors. Patient has this catheter for a long time so he has some catheter cystitis. There are no masses in the bladder. Scope was withdrawn. A 20-[place] silicone catheter was introduced over the guide into the bladder and was left indwelling. Patient tolerated the entire procedure well and left the room in good condition. DT: 10:08:47 TT: 10:16:00 Ref: [id number] - TID: [id number]
--- NOTE | 2025-07-16 10:24 | SUR.PHASEI ---
pt able to tolerate jello without difficulty swallowing or nausea/vomiting.
--- NOTE | 2025-07-16 10:57 | SUR.PHASEII ---
pt awake and alert, breathing unlabored on room air. v/s stable. pt has shah cath in place. d/c instructions given with healthcare network consultant Lexii in room, all questions answered. pt iv taken out, pt refusing to let RN place dressing on Iv site after. coffee maker stated its ok we will take care of it . pt d/c via wheelchair with all belongings.
== END 2025-07-16 10:57 | disposition home or self-care (01) ==
PROVIDERS: Anesthesiology; Referring Provider Surgery; Visit Provider Surgery
PROC: 0TJB8ZZ Inspection of Bladder, Via Natural or Artificial Opening Endoscopic (ICD-10-PCS; CPT 52000; principal; 2025-07-16 09:30)
DX: N40.1 Benign prostatic hyperplasia with lower urinary tract symptoms (principal); N13.8 Other obstructive and reflux uropathy; F79 Unspecified intellectual disabilities; Q90.9 Down syndrome, unspecified; Q54.2 Hypospadias, penoscrotal; T83.518A Infection and inflammatory reaction due to other urinary catheter, initial encounter; N30.90 Cystitis, unspecified without hematuria; R79.89 Other specified abnormal findings of blood chemistry
CPT/HCPCS: 52005; 36415; 80053; 85025; 87077; 87086; 87186; 93005; A4217; A4649; J2250

== ENCOUNTER 2025-08-04 09:33 | Inpatient (IN) | payer MEDICARE, MEDICAID, SELFPAY ==
[2025-08-04 09:40] VITALS: BP 117/76; PULSE 90; RESP 19; TEMP 36.4; O2SAT 95; BMI 28.3
--- NOTE | 2025-08-04 10:12 | XR_ITS ---
CLINICAL INDICATION: rhonchi noted on pulmonary exam TECHNIQUE: XR chest 1V portable Date and time of exam: 08/04/2025 at 12:10 p.m. COMPARISON: Chest radiograph 06/02/2025, CT abdomen pelvis 06/04/2025, CT chest abdomen and pelvis 06/19/2023 FINDINGS: The cardiac silhouette is top normal in size accounting for patient's semiupright positioning and the portable radiographic technique. There appears to be mild bilateral pulm vascular congestion and perihilar edema. No segmental or lobar consolidation. The left costophrenic angle is excluded from the [id number]. No sizable pleural effusion or pneumothorax. Degenerative changes of the skeletal structures. No apparent acute osseous abnormality. IMPRESSION: Findings suggestive of mild/early pulmonary vascular congestion and pulmonary edema. - This report was generated utilizing speech recognition software. -
[2025-08-04 10:39] LABS: Lactate (Lactic Acid) 2.2 mMol/L (0.4-2.0)
[2025-08-04 10:42] LABS: Basophils # (Auto) 0.1 Thou/mm3 (0.0-0.2); Basophils % (Auto) 1 % (0-2.5); Eosinophils # (Auto) 0.0 Thou/mm3 (0.0-0.5); Eosinophils % (Auto) 1 % (0-10); Hematocrit 39.8 % (41.0-53.0); Hemoglobin 13.5 g/dL (13.5-16.0); Immature Granulocytes Auto 0.06 Thou/mm3 (0.00-0.00); Lymphocytes # (Auto) 1.2 Thou/mm3 (1.0-4.8); Lymphocytes % (Auto) 19 % (10-50); Mean Corpuscular HGB Conc 33.9 g/dl (31.0-37.0); Mean Corpuscular Hemoglobin 35.6 pg (25.0-35.0); Mean Corpuscular Volume 105 fL (80-100); Monocytes # (Auto) 0.8 Thou/mm3 (0.0-0.8); Monocytes % (Auto) 13 % (0-12); Neutrophils # (Auto) 4.0 Thou/mm3 (1.8-7.7); Neutrophils % (Auto) 65 % (37-80); Nucleated Red Blood Cell # 0.00 Thou/mm3 (0.00-0.00); Nucleated Red Blood Cell % 0 /100 WBC (0); Platelet Count 240 Thou/mm3 (140-440); RDW Standard Deviation 55.8 fL (35.1-43.9); Red Blood Count 3.79 Miln/mm3 (4.50-5.90); White Blood Count 6.2 Thou/mm3 (3.8-10.6)
[2025-08-04 11:08] VITALS: PULSE 60
--- NOTE | 2025-08-04 11:10 | EDNOTE_ITS ---
<Statement entered by Coco Gallagher MD - 08/08/25 16:33> I, Coco Gallagher MD, have reviewed the history, exam, and assessment of the patient. I have evaluated the patient independently and agree with the plan of care documented by [ ]. All diagnostic studies were reviewed and discussed. I confirm the diagnosis as documented by the Resident. I was present during the Medical Decision Making for this patient. The patient's plan of care was created between myself and the Resident and consistent with our discussion of the patient's case. ED Male Genitalurinary RME/HPI General Chief complaint: General Adult/Misc Complain Stated complaint: TROUBLE MOVING Time Seen by Provider: 08/04/25 10:03 Arrival date/time: 08/04/25 09:33 RME / HPI RME / HPI Narrative: cc: UTI Patient is a 54-year-old female with a past medical history of hypertension, Down syndrome, developmental delay-nonverbal, history of BPH, history of CKD, history of chronic indwelling Alvarez catheter with recent cystoscopy by Dr. Dow on 07/16/2025. Patient presented to the emergency room with caregiver with a chief complaint concern for urinary tract infection as patient was seen grabbing in the suprapubic area. Patient followed up with his primary care provider given ciprofloxacin on 08/02/2025. Patient failed outpatient antibiotics as Alvarez catheter noted to have hazy urine. Alvarez Catheter changed in ER. Related Data Home Medications ?Medication ?Instructions ?Recorded ?Confirmed docusate sodium 100 mg capsule 100 mg PO BID PRN bowel movement 05/09/19 08/04/25 loratadine 10 mg tablet 10 mg PO QDAY 05/16/1908/04 diphenhydramine HCl 25 mg capsule 25 mg PO HS 07/07/21 08/04/25 (Benadryl) magnesium oxide 400 mg PO BID 01/17/2207/15 melatonin 10 mg tablet 10 mg PO HS 01/17/22 5 finasteride 5 mg tablet 5 mg PO DAILY 01/18/2208/04 ketoconazole 2 % topical cream See Rx Instructions .Ro red .COMPLEX 01/18/22 07/15/25 febuxostat 80 mg tablet (Uloric) 80 mg PO QDAY 2 08/04/25 metoprolol tartrate 50 mg tablet 50 mg PO BID 06/20/22 07/15/25 lgvkytacwdqu-gnqnlsxr-buzkjr tablet 1 tab PO QDAY 12/2107/15/25 quetiapine 25 mg tablet 25 mg PO TID 06/03/25 colchicine 0.6 mg capsule 0.6 mg PO QDAY 07/15/2506/30 divalproex 500 mg tablet,delayed 500 mg PO BID 5 07/15/25 release (Depakote) tamsulosin 0.4 mg capsule (Flomax) 0.4 mg PO BID 07/1508/04/25 Previous Rx's ?Medication ?Instructions ?Recorded loperamide 2 mg tablet 2 mg PO Q6H PRN loose stool #14 12/31/22 (Anti-Diarrheal (loperamide)) tabs Allergies Allergy/AdvReac Type Severity Reaction Status Date / Time No Known Allergies Allergy Verified 08/04/25 09:36 Review of Systems Review of Systems Narrative Review of Systems: General appearance: NO weight change, NO fatigue, NO weakness, NO fever, NO chills, NO night sweats, No cough Skin: NO rash, NO itching, NO sores, NO moles HEENT: NO Trauma, NO nausea, NO vomiting, NO visual changes, NO blurry vision, NO double vision, NO tinnitus, NO vertigo, NO ear discharge, NO rhinorrhea, NO stuffiness, NO sneezing, NO allergy, NO epistaxis. NO Hoarseness, NO sore throat, NO swollen neck. Cardiac: NO Palpitations, NO dyspnea on exertion, NO orthopnea, NO paroxysmal nocturnal dyspnea, NO edema Respiratory: NO Shortness of Breath, NO Wheezing, NO Cough, NO Sputum, NO hemoptysis GI:NO appetite, NO nausea, NO vomiting, NO dysphagia, NO changes in bowel frequency, NO stool color, NO diarrhea, NO constipation, NO hemetemesis, NO hemorrhoids, NO melena, NO hematechezia, NO abdominal pain, NO jaundice Renal: NO frequency, NO hesitancy, NO urgency, NO hematuria, NO nocturia, NO incontinence, concern for UTI MSK: NO muscle weakness, NO gout, NO arthritis, NO muscle stiffness Neuro: NO headaches, NO tremors, NO weakness, NO paralysis, NO seizures, NO loss of consciousness, NO numbness. Hem: NO anemia, NO easy bruising/bleeding, NO petechiae, NO purpura Endo: NO heat/cold intolerance, NO excessive sweating, NO polyuria, NO polydipsia, NO polyphagia, NO thyroid problems, NO diabetes Pysch: NO mood, NO anxiety, NO depression ED Exam Narrative Physical exam: General Appearance: Alert-NON Verbal, well-nourished male who is lying in bed in mild stress HEENT: Skull symmetrical and atraumatic. Conjunctivae pale pink and moist. Pupils equal, round, reactive to light and accommodation (PERRL). External ear without lesion or discharge. Straight, nares patient, mucosa pink, no discharge. Cardio: Normal Rate and Rhythm with S1 and S2 heart sounds. No murmurs or extra heart sounds auscultated. No bruits on carotid auscultation. No peripheral edema or cyanosis. Lungs: Symmetric with good expansion. Chest and back non-tender. Breath sounds vesicular without crackles, wheezing or rhonchi Abdomen: mild tendeness, Grimicing when supra-pubic region palpated, Non- distended, Normal Reactive Bowel Sounds Neuro: Yes Alert, NO cooperative,NON Verbal. CN grossly intact. Upper motor strength 5/5 and Lower motor strength 5/5. Sensation intact. Course Course Course Narrative: Patient presented with chief complain of worsening urinary symptoms despite outpatient antibiotics. CBC, CMP, lactic Acid, and Urinalysis ordered UA positive, elevated latic acid of 2.2 Called for Admission -->admitted - The patient's plan was discussed with attending Dr. Elliott Bravo MD PGY2 Internal Medicine Quality Measures none Orders Category Date Time Status Admit to Inpatient Status Routine Admission 08/04/25 14:08 Active Patient Condition Routine Admission 08/04/25 14:08 Ordered Bladder Scan NEEDED Care 08/04/25 11:09 Active [employer] Q4H START 00 Care 08/04/25 10:16 Active Continuous Pulse Oximetry NOW Care 08/04/25 10:16 Completed Miscellaneous Nursing Order X1 Care 08/04/25 10:14 Active Notify provider NEEDED Care 08/04/25 14:08 Active Vital Signs, Non-Routine [id number] Care 08/04/25 19:00 Ordered XR chest 1V portable Routine Exams 08/04/25 10:12 Completed Blood Culture (Lab) Stat Lab 08/04/25 10:33 Received CBC AM DRAW Lab 08/05/25 05:00 Ordered CBC AM DRAW Lab 08/06/25 05:00 Ordered CBC AM DRAW Lab 08/07/25 05:00 Ordered CBC AM DRAW Lab 08/08/25 05:00 Ordered CBC AM DRAW Lab 08/09/25 05:00 Ordered CBC AM DRAW Lab 08/10/25 05:00 Ordered CBC Stat Lab 08/04/25 10:30 Completed CMP [Comprehensive Metabolic Panel] AM DRAW Lab 08/05/25 05:00 Ordered CMP [Comprehensive Metabolic Panel] AM DRAW Lab 08/06/25 05:00 Ordered CMP [Comprehensive Metabolic Panel] AM DRAW Lab 08/07/25 05:00 Ordered CMP [Comprehensive Metabolic Panel] AM DRAW Lab 08/08/25 05:00 Ordered CMP [Comprehensive Metabolic Panel] AM DRAW Lab 08/09/25 05:00 Ordered CMP [Comprehensive Metabolic Panel] AM DRAW Lab 08/10/25 05:00 Ordered CMP [Comprehensive Metabolic Panel] Stat Lab 08/04/25 10:30 Completed Lactic Acid [Lactate (Lactic Acid)] Stat Lab 08/04/25 10:30 Completed Lactic Acid, 3 HR Stat Lab 08/04/25 14:30 Completed Magnesium AM DRAW Lab 08/05/25 05:00 Ordered Magnesium AM DRAW Lab 08/06/25 05:00 Ordered Magnesium AM DRAW Lab 08/07/25 05:00 Ordered Magnesium AM DRAW Lab 08/08/25 05:00 Ordered Magnesium AM DRAW Lab 08/09/25 05:00 Ordered Magnesium AM DRAW Lab 08/10/25 05:00 Ordered Phosphorous AM DRAW Lab 08/05/25 05:00 Ordered Phosphorous AM DRAW Lab 08/06/25 05:00 Ordered Phosphorous AM DRAW Lab 08/07/25 05:00 Ordered Phosphorous AM DRAW Lab 08/08/25 05:00 Ordered Phosphorous AM DRAW Lab 08/09/25 05:00 Ordered Phosphorous AM DRAW Lab 08/10/25 05:00 Ordered Urinalysis, C/S if Indicated Stat Lab 08/04/25 11:36 Completed Urine Culture Stat Lab 08/04/25 11:36 Received Acetaminophen Tab [Tylenol Tab] Med 08/04/25 14:08 Active 650 mg PO Q6H PRN Acetaminophen Tab [Tylenol Tab] Med 08/04/25 14:08 Active 650 mg PO Q6H PRN Docusate Sod [Colace] Med 08/05/25 09:00 Active 100 mg PO QDAY Heparin Inj Med 08/04/25 21:00 Active 5,000 unit SC Q12HR Lactulose Syrup [Enulose Syrup] Med 08/04/25 14:13 Discontinued 40 gm PO X1 ONE Ondansetron Inj [Zofran Inj] Med 08/04/25 14:08 Active 4 mg IVP Q6H PRN Pantoprazole [Protonix] Med 08/05/25 09:00 Active 40 mg PO QDAY Piper/Tazo 3.375 gm Premix [Zosyn] Med 08/04/25 14:33 Active 3.375 gm in 50 ml IV Q6HR Ringers Lactated 500 ml [Lactated Ringers] 500 ml Med 08/04/25 11:10 Discontinued IV 999 mls/hr Code Status Routine Oth 08/04/25 14:08 Ordered Vital Signs Vital signs: Vital Signs Temperature 97.5 F 08/04/25 09:40 Pulse Rate 90 08/04/25 09:40 Respiratory Rate 19 08/04/25 09:40 Blood Pressure 117/76 08/04/25 09:40 Pulse Oximetry (%) 95 08/04/25 09:40 Oxygen Delivery Method Room Air 08/04/25 09:40 Urogenital - Male Patient data External records reviewed:: [facility] previous records Clinical information provided by:: patient Social determinants that could affect healthcare access:: none Patient has the following chronic illnesses:: HTN, down syndrome, mental delay, and BPH How is presenting disease/condition affected by chronic disease/condition?: exacerbated by (history of BPH ) Evaluation data The following diagnostics were reviewed and interpreted by me:: lab results and EKG tracing(s) Lab and/or radiology exams considered but not ordered:: None Interpretation Summary: Failed out patient antibiotics for UTI Medications / Prescriptions Medications or Prescriptions considered but not ordered:: None Medication administrations:: Medication Administration History Acetaminophen (Acetaminophen 325 Mg Tablet) 650 mg PO Q6H PRN PRN Reason: Fever >101.5 Stop: 09/03/25 14:07 Acetaminophen (Acetaminophen 325 Mg Tablet) 650 mg PO Q6H PRN PRN Reason: PAIN SCALE 1-3 (mild Stop: 09/03/25 14:07 Docusate Sodium (Docusate Sod 100 Mg Capsule) 100 mg PO QDAY [facility]; Protocol Stop: 09/04/25 08:59 Finasteride (Finasteride 5 Mg Tablet) 5 mg PO DAILY DESMOND Stop: 09/04/25 08:59 Heparin Sodium (Porcine) (Heparin Sod Inj 5000 Unit/Ml Vial) 5,000 unit SC Q12HR [facility] Stop: 08/18/25 20:59 Piperacillin/Tazobactam/Dextrose (Zosyn) 3.375 gm in 50 mls @ 100 mls/hr IV Q6HR [facility]; Protocol Stop: 08/11/25 14:32 Last Admin: 08/04/25 16:22 Dose: 100 mls/hr Documented By: ILIA Lactated Ringer's (Lactated Ringers) 1,000 mls @ 100 mls/hr IV .Q10H DESMOND Stop: 08/05/25 10:56 Last Admin: 08/04/25 16:22 Dose: 100 mls/hr Documented By: ILIA Non-Formulary Medication (Febuxostat [Uloric]) 80 mg PO QDAY [facility] Stop: 09/04/25 08:59 Ondansetron HCl (Ondansetron Inj 2 Mg/Ml Inj 2 Ml) 4 mg IVP Q6H PRN; Protocol PRN Reason: NAUSEA OR VOMITING Stop: 09/03/25 14:07 Pantoprazole Sodium (Pantoprazole 40 Mg Tablet) 40 mg PO QDAY [facility] Stop: 09/04/25 08:59 Tamsulosin HCl (Tamsulosin Hcl 0.4 Mg Capsule) 0.4 mg PO BID [facility] Stop: 09/03/25 20:59 Discontinued Medications Lactated Ringer's (Lactated Ringers) 500 mls @ 999 mls/hr IV .Q31M ONE Stop: 08/04/25 11:40 Last Admin: 08/04/25 11:47 Dose: Not Given Documented By: ILIA Non-Admin Reason: unable to place IV, Dr. Faustin aware Lactulose (Lactulose Syrup 20 Gm/30 Ml Udc) 40 gm PO X1 ONE; Protocol Stop: 08/04/25 14:14 Last Admin: 08/04/25 16:21 Dose: 40 gm Documented By: ILIA same as above Consultations Consultation(s) initiated? (list below): Yes Diagnosis Urogenital Male Differential Diagnosis: urinary tract infection, priapism and acute retention of urine Most likely diagnosis given after review of the tests above:: UTI Admission Indicated Admission indicated?: indicated Explain why admission is indicated or not indicated:: Admission indicated as patient antibiotics. Admission Request Was there a request for admission?: Yes Admission Attestation Admission request attestation: Discussed case with Dr. Baron from Hospitalist service regarding admission. Discussed patients ED course, exam findings, labs, and radiology results. The Hospitalist agrees to accept the patient for admission. Disposition Plan Disposition Plan: Admit Discharge Plan Plan Patient Disposition: Admit Acute Care w/in Hospital Problem List Clinical Impression: Acute UTI (urinary tract infection)
[2025-08-04 11:42] LABS: Collection Type, Urine Catheter
[2025-08-04 11:43] LABS: Alanine Aminotransferase 8 U/L (10-49); Albumin, Serum 3.8 gm/dL (3.5-5.0); Albumin/Globulin Ratio 1.1 (1.2-2.2); Alkaline Phosphatase 63 U/L (46-116); Anion Gap 9 (7-16); Aspartate Amino Transferase 22 U/L (0-34); BUN/Creatinine Ratio 11 Ratio (12-20); Bilirubin,Total 0.4 mg/dL (0.3-1.2); Blood Urea Nitrogen 28 mg/dL (9-23); Calcium 9.6 mg/dL (8.3-10.6); Calcium (Corrected) 9.8 mg/dL (8.5-10.1); Carbon Dioxide 27.9 mMol/L (20.0-31.0); Chloride 104 mMol/L (98-107); Creatinine (Component) 2.6 mg/dL (0.6-1.3); Estimated Creatinine Clearance 29.4 mL/min (>60); Globulin 3.6 gm/dL (2.3-3.5); Glucose 88 mg/dL (74-106); Osmolality,Calculated 285 (275-295); Potassium 4.7 mMol/L (3.4-5.1); Sodium 141 mMol/L (136-145); Total Protein 7.4 gm/dL (5.7-8.2); eGFR 28 See Note
[2025-08-04 11:53] LABS: Bacteria,Urine 1+; Bilirubin,Urine Negative (Negative); Blood,Urine 2+ (Negative); Glucose, Urine Negative (Negative); Ketones,Urine Negative (Negative); Leukocyte Esterase,Urine Positive (Negative); Nitrite,Urine Negative (Negative); PH,Urine 6.5 (5.0-7.0); Protein,Urine 1+ (Neg - Trace); RBC,Urine 172 /hpf (0-3); Specific Gravity,Urine 1.007 (1.001-1.035); Squamous Epithelial Cell,Urine 1 /hpf (0-5); Urobilinogen,Urine Negative mg/dL (0.0-1.0); WBC,Urine 1668 /hpf (0-5)
[2025-08-04 12:21] LABS: Clarity,Urine Cloudy (Clear/Hazy); Color,Urine Lt-Yellow (Lt Yel-Yel); Culture Indicated,Urine Yes
[2025-08-04 12:58] VITALS: BP 112/80; PULSE 73; RESP 15; TEMP 36.8; O2SAT 100
[2025-08-04 13:36] LABS: Reflex Lactate? Y
--- NOTE | 2025-08-04 14:26 | ESHP_ITS ---
<Statement entered by Damien Baron MD - 08/04/25 17:22> Mr. Whitley is a 54-year-old female with a past medical history of hypertension, Down syndrome, developmental delay-nonverbal, history of BPH, history of CKD, Chronic recurrent lines, and chronic indwelling Shah catheter with recent cystoscopy by Dr. Dow on 07/16/2025 presented to the emergency room with caregiver with concern for urinary tract infection, that failed outpatient therapy with ciprofloxacin which Pt took for 3 days. Per care give when the pt has the recurrence of UTI he guards his suprapubic area. Urine analysis is positive for leukocyte esterase and pyuria (WBC >1600) Pt is started on IV meropenem and urine cultures are pending. Patient was seen and examined by me personally. I have directly supervised and reviewed documentation by the team resident and agree with its findings. ------- Plan of care was discussed with the attending, Dr. Marcella Baron, PGY-2 Documentation for date of: 08/04/25 HPI History of Present Illness Chief complaint: CAUTI History of present illness: Mr. Whitley is a 54-year-old Gentleman with Down syndrome with past medical history development delay, diabetes, gout, hypertension, obstructive uropathy(followed by [facility]) with chronic indwelling Shah catheter due to BPH, recurrent UTIs(hx of ESBL UTI, resistant to ertapenem) and chronic pyuria who had cystoscopy and urine cultures taken which demonstrated UTI, he was started on course of abx with ciproflox. Per his health aid at bedside, she states that in the past 2 days he was noted to be more fatigued and less willing to engage which raised suspician for him not feeling well. She states that Mr. Whitley has not had a BM since 08/02 and that she was concerned that his UTI was not getting better on the antibiotics that he was taken outpatient At baseline patient is nonverbal, able to ambulate independently, has chronic indwelling shah cath that is exchanged monthly ROS : unable to assess given pt is nonverbal Surgical hx: cystoscopy ED course VSS: Afebrile, normotensive, satting well on room air Labs notable for: Lactic Acidosis 2.8 Tx Shah exchange on 08/[address] IV Exam Vital Signs Temp Pulse Resp BP Pulse Ox O2 Del Method 98.3 F 73 15 112/80 100 Room Air 08/04/25 12:58 08/04/25 12:58 08/04/25 12:58 08/04/25 12:58 08/04/25 12:58 08/04/25 12:58 Narrative Exam General: No acute distress, well nourished, AAOX0, (developmental delay Eye: Left eye with cataract and bulbous/conical protuberance HENT: Normocephalic, atraumatic, dry oral mucosa,poor dentition Neck: Supple, non-tender, no JVD, no lymphadenopathy Lungs: Non-labored respirations, symmetric chest rise, Clear to auscultate bilaterally, No wheezing, rhonchi, crackles, on RA Heart: Peripheral pulses intact bilaterally, Regular Rate and Rhythm, No pitting edema of bilateral LEs. Abdomen: firm, non-tender, non-distended, no palpable masses, no suprapubic tenderness however difficult to assess given pt is nonverbal : shah with clear yellow urine ( shah was exchanged in ed on 08/04) Musculoskeletal: No cyanosis or edema, No visible joint swelling Skin: Skin is warm, dry, no rashes or lesions. Psychiatric: Cooperative, appropriate mood and affect,, not agitated Neuro: Cranial nerves II-XII grossly intact.Sensations intact to light touch. Results: Labs 08/05/25 07:30 08/05/25 07:30 Labs: Short CBC 08/04/25 Range/Units 10:30 WBC 6.2 (3.8-10.6) Thou/mm3 Hgb 13.5 (13.5-16.0) g/dL Hct 39.8 L (41.0-53.0) % Plt Count 240 D (140-440) Thou/mm3 BMP 08/04/25 10:30 Sodium 141 Potassium 4.7 Chloride 104 Carbon Dioxide 27.9 BUN 28 H Creatinine 2.6 H Glucose 88 Calcium 9.6 Liver Function 08/04/25 Range/Units 10:30 Total Bilirubin 0.4 (0.3-1.2) mg/dL AST 22 (0-34) U/L ALT 8 L (10-49) U/L Alkaline Phosphatase 63 (46-116) U/L Albumin 3.8 (3.5-5.0) gm/dL Urine 08/04/25 Range/Units 11:36 Urine Color Lt-Yellow (Lt Yel-Yel) Urine Clarity Cloudy A (Clear/Hazy) Urine pH 6.5 (5.0-7.0) Ur Specific [place] 1.007 (1.001-1.035) Urine Protein 1+ A (Neg - Trace) Urine Glucose (UA) Negative (Negative) Quality Measures Quality Measures VTE prophylaxis Medications Home Medications and Allergies Home Medications ?Medication ?Instructions ?Recorded ?Confirmed ?Type docusate sodium 100 mg capsule 100 mg PO BID PRN bowel movement 05/09/19 08/04/25 History loratadine 10 mg tablet 10 mg PO QDAY 05/16/1908/04 History diphenhydramine HCl 25 mg capsule 25 mg PO HS 07/07/21 08/04/25 History (Benadryl) magnesium oxide 400 mg PO BID 01/17/2207/15 History melatonin 10 mg tablet 10 mg PO HS 01/17/22 5 History finasteride 5 mg tablet 5 mg PO DAILY 01/18/2208/04 History ketoconazole 2 % topical cream See Rx Instructions .Ro havasupai .COMPLEX 01/18/22 07/15/25 History febuxostat 80 mg tablet (Uloric) 80 mg PO QDAY 2 08/04/25 History metoprolol tartrate 50 mg tablet 50 mg PO BID 06/20/22 07/15/25 History hdwnkdqianvg-unhswsbz-ggxzvx tablet 1 tab PO QDAY 12/2107/15/25 History quetiapine 25 mg tablet 25 mg PO TID 06/03/25 History colchicine 0.6 mg capsule 0.6 mg PO QDAY 07/15/2506/30 History divalproex 500 mg tablet,delayed 500 mg PO BID 5 07/15/25 History release (Depakote) tamsulosin 0.4 mg capsule (Flomax) 0.4 mg PO BID 07/1508/04/25 History Allergies Allergy/AdvReac Type Severity Reaction Status Date / Time No Known Allergies Allergy Verified 08/04/25 09:36 Visit Medications Acetaminophen (Acetaminophen 325 Mg Tablet) 650 mg PO Q6H PRN PRN Reason: Fever >101.5 Stop: 09/03/25 14:07 Acetaminophen (Acetaminophen 325 Mg Tablet) 650 mg PO Q6H PRN PRN Reason: PAIN SCALE 1-3 (mild Stop: 09/03/25 14:07 Docusate Sodium (Docusate Sod 100 Mg Capsule) 100 mg PO QDAY DESMOND; Protocol Stop: 09/04/25 08:59 Heparin Sodium (Porcine) (Heparin Sod Inj 5000 Unit/Ml Vial) 5,000 unit SC Q12HR DESMOND Stop: 08/18/25 20:59 Ondansetron HCl (Ondansetron Inj 2 Mg/Ml Inj 2 Ml) 4 mg IVP Q6H PRN; Protocol PRN Reason: NAUSEA OR VOMITING Stop: 09/03/25 14:07 Pantoprazole Sodium (Pantoprazole 40 Mg Tablet) 40 mg PO QDAY DESMOND Stop: 09/04/25 08:59 Discontinued Medications Lactated Ringer's (Lactated Ringers) 500 mls @ 999 mls/hr IV .Q31M ONE Stop: 08/04/25 11:40 Last Admin: 08/04/25 11:47 Dose: Not Given Lactulose (Lactulose Syrup 20 Gm/30 Ml Udc) 40 gm PO X1 ONE; Protocol Stop: 08/04/25 14:14 Assessment & Plan Plan Mr. Whitley is a 54-year-old Gentleman with Down syndrome with past medical history development delay, diabetes, gout, hypertension, obstructive uropathy(followed by [facility]) with chronic indwelling Shah catheter due to BPH, recurrent UTIs(hx of ESBL UTI, resistant to ertapenem) and chronic pyuria who presented to the ed on 08/04 with failed outpatient abx treatment, started on IV abx, will continue to monitor. #Chronic indwelling catheter #History of BPH s/p cystoscopy and urethral dilation #Hx of Recurrent UTI #Hx of ESBL UTI Patient has a history of recurrent UTI with ESBL, He follows with urology for bph (see below) he was taking outpatient abx with ciproflox for 2 days prior to presentation to the ed without resolution of symptoms and increased fatigue noted by rn complex care. UA positive for leukocyte esterase, PLAN - IV Zosyn q6hr - urine cx pending - Continue IV fluids, encourage PO intake #CKD stage IV #chronic bilateral hydronephrosis 2/2 #Severe BPH Patient follows with [facility] had cysto done 07/16 -Avoid nephrotoxins -Renally dosed medications - restarted #bph medications, finasteride and tamsulosin #IBD #Constipation - Docusate PO qday - Restart home fuboxostat 80 mg qd, #Developmental Delay #Down syndrome - Resume home meds Divalproex Na 500mg BID, Quetiapine 75mg qHS #Hyperuricemia/gout - Home meds include Febuxostat 80mg qday #Left Eye cataract ?and protusion noted to have cloudy cornea with boulbous type protrusion. caregiver also notes, but has not seen opthalmologist - rec outpatient f/u with opthalmology. Hospital management: Lines: peripheral IV Diet: renal diet , mechanical dysphagia diet GI prophylaxis: protonix 40 po qd DVT prophylaxis: heparin 5000 sq Disposition: med surg for IV abx CODE STATUS: Full code Plan discussed with my attending Dr. Naranjo and my senior resident Dr. Lisa Dominguez MD PGY1 Attending Provider Attestation/Addendum Sri Morales DO, attest that I was physically present for the pearce portions of the service and evaluated the patient with the resident and I reviewed and discussed the case with the resident and agree with the resident's findings and plans of care as documented above Patient is a 54-year-old male with medical history syndrome, diabetes, obstructive uropathy, hypertension and chronic indwelling Shah catheter, recurrent UTIs who was brought to the ED due to generalized weakness. Patient was noted by estimation manager to be very uncomfortable and has been having poor p.o. intake for the past 2 days. Patient has been less active and laying in his bed. At baseline, patient is ambulatory at home. He was subsequently brought to ED for this reason. Patient has had several urine cultures with Pseudomonas as well as ESBL Klebsiella oxytoca that is resistant to ertapenem. UA in the ED was cloudy with significant pyuria and 1+ bacteria. Shah was exchanged in the ED. He has been afebrile otherwise. Due to patient's history and concern for resistant UTI, patient will be admitted [place] [place]up and medical management of urinary tract infection involving chronic indwelling Shah catheter. Will start patient on IV Zosyn due to previous resistant cultures. Patient is at baseline mental status, tracking with eyes. Abdomen is soft and nontender. No peripheral edema is noted. Lungs are clear to auscultation bilaterally.
[2025-08-04 14:38] LABS: Lactic Acid, 3 HR 2.8 mMol/L (0.4-2.0)
[2025-08-04 15:03] VITALS: BP 109/65; PULSE 95; RESP 19; O2SAT 100
[2025-08-04] MEDS: LACTULOSE SYRUP 20 GM/30 ML UDC 40 GM PO (16:21)
[2025-08-04] MEDS: PIPER/TAZO 3.375 GM PREMIX 3.375 GM/50 ML BAG IV ×2 (16:22→23:15)
[2025-08-04] MEDS: RINGERS LACTATED 1000 ML 1,000 ML 100 ML IV (16:22)
--- NOTE | 2025-08-04 16:30 | PC.NURSE ---
Hand off report given to Trang from med-surg. Pt is DD with care provider at bedside. Caregiver is aware of admission to floor for UTI. Pt is stable to transfer, no s/s of distress, VSS, no s/s of pain. All belongings gathered and sent with patient.
[2025-08-04 17:32] VITALS: BMI 27.6
--- NOTE | 2025-08-04 17:55 | PC.NURSE ---
skin care technician to bring med list in the morning.
[2025-08-04 19:06] LABS: Lactate (Lactic Acid) 2.0 mMol/L (0.4-2.0)
[2025-08-04 20:00] VITALS: BP 126/94; PULSE 91; RESP 17; TEMP 37.1; O2SAT 97
[2025-08-04] MEDS: TAMSULOSIN HCL 0.4 MG CAPSULE PO (20:08)
[2025-08-04] MEDS: HEPARIN SOD INJ 5000 UNIT/ML VIAL SC (20:12)
[2025-08-05] VITALS: BP 99/69; PULSE 92; RESP 19; TEMP 37.5; O2SAT 98
[2025-08-05 00:35] LABS: Lactate (Lactic Acid) 1.4 mMol/L (0.4-2.0)
[2025-08-05] MEDS: RINGERS LACTATED 1000 ML 1,000 ML 100 ML IV (00:52)
[2025-08-05 04:00] VITALS: BP 119/72; PULSE 90; RESP 17; TEMP 37.1; O2SAT 96
[2025-08-05] MEDS: PIPER/TAZO 3.375 GM PREMIX 3.375 GM/50 ML BAG IV ×3 (05:14→18:13)
[2025-08-05 06:19] LABS: Lactate (Lactic Acid) 1.4 mMol/L (0.4-2.0)
[2025-08-05 07:47] VITALS: BP 119/81; PULSE 92; RESP 17; TEMP 37.1; O2SAT 96
--- NOTE | 2025-08-05 07:47 | ESPR_ITS ---
<Statement entered by Damien Baron MD - 08/06/25 08:03> Pt is seen at bedside. Will continue IV abx with zosyn, previous culture was resistent to meropenem therefore switched the abx to zosyn. Will wait for culture results. Patient was seen and examined by me personally. I have directly supervised and reviewed documentation by the team resident and agree with its findings. ------- Plan of care was discussed with the attending, Dr. Marcella Baron, PGY-2 Documentation for date of: 08/05/25 Subjective Subjective Interval history: Mr. Whitley looks much improved today, was able to engage with pet care attendant more and provider. He had BM yesterday. Cr. increased 2.9 from 2.6. likely 2/2 poor po intake, will continue on fluids (on prior admission, william was consulted. has chronic hydronephrosis not amenable to nephrostomy tubes given autism and developmental delay and inability to tolerate) continues with chronic shah that is draining appropriately Lactic acid resolved 1.4 from 2.8 with fluids. encourage PO intake. urine cultures pending Exam Vital Signs Temp Pulse Resp BP Pulse Ox O2 Del Method 98.8 F 90 17 119/72 96 Room Air 08/05/25 04:00 08/05/25 04:00 08/05/25 04:00 08/05/25 04:00 08/05/25 04:00 08/05/25 04:00 Narrative Exam General: No acute distress, well nourished, AAOX0, (developmental delay), more vocal today, waving and smiling Eye: Left eye with cataract and bulbous/conical protuberance HENT: Normocephalic, atraumatic, dry oral mucosa,poor dentition Neck: Supple, non-tender, no JVD, no lymphadenopathy Lungs: Non-labored respirations, symmetric chest rise, Clear to auscultate bilaterally, No wheezing, rhonchi, crackles, on RA Heart: Peripheral pulses intact bilaterally, Regular Rate and Rhythm, No pitting edema of bilateral LEs. Abdomen: firm, non-tender, non-distended, no palpable masses, no suprapubic tenderness however difficult to assess given pt is nonverbal : shah with clear yellow urine ( shah was exchanged in ed on 08/04) Musculoskeletal: No cyanosis or edema, No visible joint swelling Skin: Skin is warm, dry, no rashes or lesions. Psychiatric: Cooperative, appropriate mood and affect,, not agitated Neuro: Cranial nerves II-XII grossly intact.Sensations intact to light touch. Objective Labs 08/06/25 04:34 08/06/25 04:34 Labs: Laboratory Results - last 24 hr 08/04/25 08/04/25 08/04/25 10:30 11:36 14:30 WBC 6.2 RBC 3.79 L Hgb 13.5 Hct 39.8 L MCV 105 H MCH 35.6 H MCHC 33.9 RDW Std Deviation 55.8 H Plt Count 240 D Neut % (Auto) 65 Lymph % (Auto) 19 [place] % (Auto) 13 H Eos % (Auto) 1 Baso % (Auto) 1 Neut # (Auto) 4.0 Lymph # (Auto) 1.2 [place] # (Auto) 0.8 Eos # (Auto) 0.0 Baso # (Auto) 0.1 Immature Gran # (Auto) 0.06 H Absolute Nucleated RBC 0.00 Immature Gran % 1 H Nucleated RBC % 0 Sodium 141 Potassium 4.7 Chloride 104 Carbon Dioxide 27.9 Anion Gap 9 BUN 28 H Creatinine 2.6 H Estim Creat Clear Calc 29.4 L eGFR 28 L BUN/Creatinine Ratio 11 L Glucose 88 Calculated Osmolality 285 Lactic Acid 2.2 H 2.8 H Calcium 9.6 Corrected Calcium 9.8 Total Bilirubin 0.4 AST 22 ALT 8 L Alkaline Phosphatase 63 Total Protein 7.4 Albumin 3.8 Globulin 3.6 H Albumin/Globulin Ratio 1.1 L Ur Collection Type Catheter Urine Color Lt-Yellow Urine Clarity Cloudy A Urine pH 6.5 Ur Specific [place] 1.007 Urine Protein 1+ A Urine Glucose (UA) Negative Urine Ketones Negative Urine Blood 2+ A Urine Nitrite Negative Urine Bilirubin Negative Urine Urobilinogen (Auto) Negative Ur Leukocyte Esterase Positive Urine RBC 172 H Urine WBC 1668 H Ur Squamous Epith Cells 1 Urine Bacteria 1+ A Ur Culture Indicated? Yes 08/04/25 08/05/25 08/05/25 18:33 00:25 06:00 WBC RBC Hgb Hct MCV MCH MCHC RDW Std Deviation Plt Count Neut % (Auto) Lymph % (Auto) [place] % (Auto) Eos % (Auto) Baso % (Auto) Neut # (Auto) Lymph # (Auto) [place] # (Auto) Eos # (Auto) Baso # (Auto) Immature Gran # (Auto) Absolute Nucleated RBC Immature Gran % Nucleated RBC % Sodium Potassium Chloride Carbon Dioxide Anion Gap BUN Creatinine Estim Creat Clear Calc eGFR BUN/Creatinine Ratio Glucose Calculated Osmolality Lactic Acid 2.0 1.4 1.4 Calcium Corrected Calcium Total Bilirubin AST ALT Alkaline Phosphatase Total Protein Albumin Globulin Albumin/Globulin Ratio Ur Collection Type Urine Color Urine Clarity Urine pH Ur Specific [place] Urine Protein Urine Glucose (UA) Urine Ketones Urine Blood Urine Nitrite Urine Bilirubin Urine Urobilinogen (Auto) Ur Leukocyte Esterase Urine RBC Urine WBC Ur Squamous Epith Cells Urine Bacteria Ur Culture Indicated? Quality Measures Quality Measures VTE prophylaxis Assessment & Plan Assessment Current Active Medications: Generic Name Dose Route Start Last Admin Trade Name Freq PRN Reason Stop Dose Admin Acetaminophen 650 mg 08/04/25 14:08 Acetaminophen 325 Mg Tablet PO 09/03/25 14:07 Q6H PRN Fever >101.5 Acetaminophen 650 mg 08/04/25 14:08 Acetaminophen 325 Mg Tablet PO 09/03/25 14:07 Q6H PRN PAIN SCALE 1-3 (mild Docusate Sodium 100 mg 08/05/25 09:00 Docusate Sod 100 Mg Capsule PO 09/04/25 08:59 QDAY DESMOND Protocol Finasteride 5 mg 08/05/25 09:00 Finasteride 5 Mg Tablet PO 09/04/25 08:59 DAILY DESMOND Heparin Sodium (Porcine) 5,000 unit 08/04/25 21:00 08/04/25 20:12 Heparin Sod Inj 5000 Unit/Ml Vial SC 08/18/25 20:59 5,000 unit Q12HR DESMOND Administration Lactated Ringer's 1,000 mls @ 100 mls/hr 08/04/25 14:57 08/05/25 00:52 Lactated Ringers IV 08/05/25 10:56 100 mls/hr .Q10H DESMOND Administration Piperacillin/Tazobactam/Dextrose 3.375 gm in 50 mls @ 100 mls/hr 08/05/25 00:00 08/05/25 05:14 Zosyn IV 08/11/25 18:01 100 mls/hr Q6HR DESMOND Administration Protocol Non-Formulary Medication 80 mg 08/05/25 09:00 Febuxostat [Uloric] PO 09/04/25 08:59 QDAY DESMOND Ondansetron HCl 4 mg 08/04/25 14:08 Ondansetron Inj 2 Mg/Ml Inj 2 Ml IVP 09/03/25 14:07 Q6H PRN NAUSEA OR VOMITING Protocol Pantoprazole Sodium 40 mg 08/05/25 09:00 Pantoprazole 40 Mg Tablet PO 09/04/25 08:59 QDAY DESMOND Tamsulosin HCl 0.4 mg 08/04/25 21:00 08/04/25 20:08 Tamsulosin Hcl 0.4 Mg Capsule PO 09/03/25 20:59 0.4 mg BID DESMOND Administration Plan Mr. Whitley is a 54-year-old Gentleman with Down syndrome with past medical history development delay, diabetes, gout, hypertension, obstructive uropathy(followed by [facility]) with chronic indwelling Shah catheter due to BPH, recurrent UTIs(hx of ESBL UTI, resistant to ertapenem) and chronic pyuria who presented to the ed on 08/04 with failed outpatient abx treatment, started on IV abx, will continue to monitor, has BARB on CKD will ctm, no nephro consult indicated at this time. #UTI #Chronic indwelling catheter #History of BPH s/p cystoscopy and urethral dilation #Hx of Recurrent UTI #Hx of ESBL UTI Patient has a history of recurrent UTI with ESBL, He follows with urology for bph (see below) he was taking outpatient abx with ciproflox for 2 days prior to presentation to the ed without resolution of symptoms and increased fatigue noted by managed care director. UA positive for leukocyte esterase, PLAN - Modify IV Zosyn q6hr-->q8hr given c/f poor renal fxn - urine cx pending - Continue IV fluids, encourage PO intake #BARB on CKD stage IV #chronic bilateral hydronephrosis 2/2 #Severe BPH Patient follows with [facility], omkar cysto done 07/16 Cr increased 2.6-->2.9, will continue iv fluids gently and encourage po intake. -Avoid nephrotoxins (changed zosyn frequency from q6 to q8) -Renally dosed medications - restarted #bph medications, finasteride and tamsulosin #IBD #Constipation - resolved with lactulose 40x1 - Docusate PO qday - Restart home fuboxostat 80 mg qd, #Developmental Delay #Down syndrome - Resume home meds Divalproex Na 500mg BID, Quetiapine 75mg qHS #Hyperuricemia/gout - Home meds include Febuxostat 80mg qday #Left Eye cataract ?and protusion noted to have cloudy cornea with boulbous type protrusion. caregiver also notes, but has not seen opthalmologist - rec outpatient f/u with opthalmology. Hospital management: Lines: peripheral IV Diet: renal diet , mechanical dysphagia diet GI prophylaxis: protonix 40 po qd DVT prophylaxis: heparin 5000 sq Disposition: med surg for IV abx CODE STATUS: Full code Plan discussed with my attending Dr. Naranjo and my senior resident Dr. Lisa Dominguez MD PGY1 Attending Provider Attestation/Addendum Sri Morales, , attest that I was physically present for the pearce portions of the service and evaluated the patient with the resident and I reviewed and discussed the case with the resident and agree with the resident's findings and plans of care as documented above Patient seen and eval this a.m. Patient is back at his baseline mental status per hardware manager at bedside. Patient has been afebrile. Renal function appears to be worsening. Will continue IV fluid hydration at this time. Will monitor volume status closely. Pending urine cultures otherwise.
[2025-08-05 07:55] LABS: Basophils # (Auto) 0.1 Thou/mm3 (0.0-0.2); Basophils % (Auto) 1 % (0-2.5); Eosinophils # (Auto) 0.0 Thou/mm3 (0.0-0.5); Eosinophils % (Auto) 0 % (0-10); Hematocrit 38.7 % (41.0-53.0); Hemoglobin 13.1 g/dL (13.5-16.0); Immature Granulocytes Auto 0.05 Thou/mm3 (0.00-0.00); Lymphocytes # (Auto) 1.0 Thou/mm3 (1.0-4.8); Lymphocytes % (Auto) 15 % (10-50); Mean Corpuscular HGB Conc 33.9 g/dl (31.0-37.0); Mean Corpuscular Hemoglobin 35.1 pg (25.0-35.0); Mean Corpuscular Volume 104 fL (80-100); Monocytes # (Auto) 0.9 Thou/mm3 (0.0-0.8); Monocytes % (Auto) 13 % (0-12); Neutrophils # (Auto) 4.5 Thou/mm3 (1.8-7.7); Neutrophils % (Auto) 70 % (37-80); Nucleated Red Blood Cell # 0.00 Thou/mm3 (0.00-0.00); Nucleated Red Blood Cell % 0 /100 WBC (0); Platelet Count 204 Thou/mm3 (140-440); RDW Standard Deviation 55.0 fL (35.1-43.9); Red Blood Count 3.73 Miln/mm3 (4.50-5.90); White Blood Count 6.4 Thou/mm3 (3.8-10.6)
[2025-08-05 08:16] LABS: Alanine Aminotransferase 9 U/L (10-49); Albumin, Serum 3.6 gm/dL (3.5-5.0); Albumin/Globulin Ratio 1.0 (1.2-2.2); Alkaline Phosphatase 61 U/L (46-116); Anion Gap 10 (7-16); Aspartate Amino Transferase 23 U/L (0-34); BUN/Creatinine Ratio 10 Ratio (12-20); Bilirubin,Total 0.6 mg/dL (0.3-1.2); Blood Urea Nitrogen 29 mg/dL (9-23); Calcium 9.1 mg/dL (8.3-10.6); Calcium (Corrected) 9.4 mg/dL (8.5-10.1); Carbon Dioxide 27.5 mMol/L (20.0-31.0); Chloride 107 mMol/L (98-107); Creatinine (Component) 2.9 mg/dL (0.6-1.3); Estimated Creatinine Clearance 26.0 mL/min (>60); Globulin 3.7 gm/dL (2.3-3.5); Glucose 80 mg/dL (74-106); Magnesium 1.8 mg/dL (1.6-2.6); Osmolality,Calculated 291 (275-295); Phosphorous 3.4 mg/dL (2.4-5.1); Potassium 4.1 mMol/L (3.4-5.1); Sodium 144 mMol/L (136-145); Total Protein 7.3 gm/dL (5.7-8.2); eGFR 25 See Note
[2025-08-05] MEDS: PATIENT'S OWN MED 1 EA EA PO (09:21)
[2025-08-05] MEDS: TAMSULOSIN HCL 0.4 MG CAPSULE PO ×2 (09:21→20:13)
[2025-08-05] MEDS: HEPARIN SOD INJ 5000 UNIT/ML VIAL SC ×2 (09:21→20:13)
[2025-08-05] MEDS: PANTOPRAZOLE 40 MG TABLET PO (09:21)
[2025-08-05] MEDS: DOCUSATE SOD 100 MG CAPSULE PO (09:21)
[2025-08-05] MEDS: FINASTERIDE 5 MG TABLET PO (09:22)
[2025-08-05] MEDS: Magnesium Sulfate 4 GM Ivpb 4 GM/50 ML BAG IV (10:35)
[2025-08-05 11:41] VITALS: BP 129/89; PULSE 86; RESP 17; TEMP 37.1; O2SAT 96
[2025-08-05 15:47] VITALS: BP 118/82; PULSE 89; RESP 17; TEMP 37.1; O2SAT 96
[2025-08-05 20:00] VITALS: BP 110/80; PULSE 95; RESP 22; TEMP 36.9; O2SAT 94
[2025-08-06] VITALS (8 sets, daily range): BP systolic 111–184; BP diastolic 64–121; PULSE 73–109; RESP 18–24; TEMP 36.2–37.1; O2SAT 91–99
[2025-08-06] MEDS: PIPER/TAZO 3.375 GM PREMIX 3.375 GM/50 ML BAG IV (02:13)
[2025-08-06 06:16] LABS: Basophils # (Auto) 0.1 Thou/mm3 (0.0-0.2); Basophils % (Auto) 1 % (0-2.5); Eosinophils # (Auto) 0.1 Thou/mm3 (0.0-0.5); Eosinophils % (Auto) 1 % (0-10); Hematocrit 35.7 % (41.0-53.0); Hemoglobin 12.2 g/dL (13.5-16.0); Immature Granulocytes Auto 0.05 Thou/mm3 (0.00-0.00); Lymphocytes # (Auto) 1.1 Thou/mm3 (1.0-4.8); Lymphocytes % (Auto) 17 % (10-50); Mean Corpuscular HGB Conc 34.2 g/dl (31.0-37.0); Mean Corpuscular Hemoglobin 35.8 pg (25.0-35.0); Mean Corpuscular Volume 105 fL (80-100); Monocytes # (Auto) 0.9 Thou/mm3 (0.0-0.8); Monocytes % (Auto) 13 % (0-12); Neutrophils # (Auto) 4.3 Thou/mm3 (1.8-7.7); Neutrophils % (Auto) 67 % (37-80); Nucleated Red Blood Cell # 0.00 Thou/mm3 (0.00-0.00); Nucleated Red Blood Cell % 0 /100 WBC (0); Platelet Count 180 Thou/mm3 (140-440); RDW Standard Deviation 55.0 fL (35.1-43.9); Red Blood Count 3.41 Miln/mm3 (4.50-5.90); White Blood Count 6.4 Thou/mm3 (3.8-10.6)
[2025-08-06 06:59] LABS: Alanine Aminotransferase 9 U/L (10-49); Albumin, Serum 3.3 gm/dL (3.5-5.0); Albumin/Globulin Ratio 0.9 (1.2-2.2); Alkaline Phosphatase 54 U/L (46-116); Anion Gap 9 (7-16); Aspartate Amino Transferase 26 U/L (0-34); BUN/Creatinine Ratio 9 Ratio (12-20); Bilirubin,Total 0.4 mg/dL (0.3-1.2); Blood Urea Nitrogen 31 mg/dL (9-23); Calcium 8.9 mg/dL (8.3-10.6); Calcium (Corrected) 9.5 mg/dL (8.5-10.1); Carbon Dioxide 27.9 mMol/L (20.0-31.0); Chloride 105 mMol/L (98-107); Creatinine (Component) 3.4 mg/dL (0.6-1.3); Estimated Creatinine Clearance 22.2 mL/min (>60); Globulin 3.5 gm/dL (2.3-3.5); Glucose 90 mg/dL (74-106); Magnesium 2.4 mg/dL (1.6-2.6); Osmolality,Calculated 289 (275-295); Phosphorous 3.6 mg/dL (2.4-5.1); Potassium 3.9 mMol/L (3.4-5.1); Sodium 142 mMol/L (136-145); Total Protein 6.8 gm/dL (5.7-8.2); eGFR 20 See Note
--- NOTE | 2025-08-06 07:51 | ESPR_ITS ---
<Statement entered by Damien Baron MD - 08/06/25 16:26> Patient seen bedside, creatinine is worse today 3.4. Case discussed with patient's conservator Dr. Wheat who agrees patient needs a further urologic evaluation which may include and agreeable to cystoscopy or suprapubic catheter. Transfer for urologic evaluation is initiated. Urine cultures are negative therefore will discontinue IV antibiotics. Patient was seen and examined by me personally. I have directly supervised and reviewed documentation by the team resident and agree with its findings. ------- Plan of care was discussed with the attending, Dr. Marcella Baron, PGY-2 Documentation for date of: 08/06/25 Subjective Subjective Interval history: BARB on CKD worsenining, nephrology consulted, Renal US with R>L hydronephrosis and shah balloon in the prostatic urethra, advised nurse to advance catheter to correct position. give 2L LR and encourage po intake Urine Cx w No Growth d/c zosyn discussed pt case with conservertor, Dr. Sosa who is amenable to suprapubic catheter. Exam Vital Signs Temp Pulse Resp BP Pulse Ox O2 Del Method 97.1 F 74 18 133/89 H 96 Room Air 08/06/25 07:29 08/06/25 07:29 08/06/25 07:29 08/06/25 07:29 08/06/25 07:29 08/06/25 07:29 Narrative Exam General: No acute distress, well nourished, AAOX0, (developmental delay), smiling and waving, asking for his magazines Eye: Left eye with cataract and bulbous/conical protuberance HENT: Normocephalic, atraumatic, dry oral mucosa,poor dentition Neck: Supple, non-tender, no JVD, no lymphadenopathy Lungs: Non-labored respirations, symmetric chest rise, Clear to auscultate bilaterally, No wheezing, rhonchi, crackles, on RA Heart: Peripheral pulses intact bilaterally, Regular Rate and Rhythm, No pitting edema of bilateral LEs. Abdomen: firm, non-tender, non-distended, no palpable masses, no suprapubic tenderness however difficult to assess given pt is nonverbal : shah with clear yellow urine ( shah was exchanged in ed on 08/04) Musculoskeletal: No cyanosis or edema, No visible joint swelling Skin: Skin is warm, dry, no rashes or lesions. Psychiatric: Cooperative, appropriate mood and affect,, not agitated Neuro: Cranial nerves II-XII grossly intact.Sensations intact to light touch. Objective Labs 08/06/25 04:34 08/06/25 04:34 Labs: Laboratory Results - last 24 hr 08/05/25 08/06/25 07:30 04:34 WBC 6.4 6.4 RBC 3.73 L 3.41 L Hgb 13.1 L 12.2 L Hct 38.7 L 35.7 L MCV 104 H 105 H MCH 35.1 H 35.8 H MCHC 33.9 34.2 RDW Std Deviation 55.0 H 55.0 H Plt Count 204 D 180 Neut % (Auto) 70 67 Lymph % (Auto) 15 17 [place] % (Auto) 13 H 13 H Eos % (Auto) 0 1 Baso % (Auto) 1 1 Neut # (Auto) 4.5 4.3 Lymph # (Auto) 1.0 1.1 [place] # (Auto) 0.9 H 0.9 H Eos # (Auto) 0.0 0.1 Baso # (Auto) 0.1 0.1 Immature Gran # (Auto) 0.05 H 0.05 H Absolute Nucleated RBC 0.00 0.00 Immature Gran % 1 H 1 H Nucleated RBC % 0 0 Sodium 144 142 Potassium 4.1 D 3.9 Chloride 107 105 Carbon Dioxide 27.5 27.9 Anion Gap 10 9 BUN 29 H 31 H Creatinine 2.9 H 3.4 H D Estim Creat Clear Calc 26.0 L 22.2 L eGFR 25 L 20 L BUN/Creatinine Ratio 10 L 9 L Glucose 80 90 Calculated Osmolality 291 289 Calcium 9.1 8.9 Corrected Calcium 9.4 9.5 Phosphorus 3.4 3.6 Magnesium 1.8 2.4 Total Bilirubin 0.6 0.4 AST 23 26 ALT 9 L 9 L Alkaline Phosphatase 61 54 Total Protein 7.3 6.8 Albumin 3.6 3.3 L Globulin 3.7 H 3.5 Albumin/Globulin Ratio 1.0 L 0.9 L Quality Measures Quality Measures VTE prophylaxis Assessment & Plan Assessment Current Active Medications: Generic Name Dose Route Start Last Admin Trade Name Freq PRN Reason Stop Dose Admin Acetaminophen 650 mg 08/04/25 14:08 Acetaminophen 325 Mg Tablet PO 12/05/25 14:07 Q6H PRN Fever >101.5 Acetaminophen 650 mg 08/04/25 14:08 Acetaminophen 325 Mg Tablet PO 09/03/25 14:07 Q6H PRN PAIN SCALE 1-3 (mild Docusate Sodium 100 mg 08/05/25 09:00 08/05/25 09:21 Docusate Sod 100 Mg Capsule PO 09/04/25 08:59 100 mg QDAY DESMOND Administration Protocol Finasteride 5 mg 08/05/25 09:00 08/05/25 09:22 Finasteride 5 Mg Tablet PO 09/04/25 08:59 5 mg DAILY DESMOND Administration Heparin Sodium (Porcine) 5,000 unit 08/04/25 21:00 08/05/25 20:13 Heparin Sod Inj 5000 Unit/Ml Vial SC 08/18/25 20:59 5,000 unit Q12HR DESMOND Administration Piperacillin/Tazobactam/Dextrose 3.375 gm in 50 mls @ 12.5 mls/hr 08/05/25 11:00 08/06/25 02:13 Zosyn IV 08/12/25 10:59 12.5 mls/hr Q8H DESMOND Administration Protocol Ondansetron HCl 4 mg 08/04/25 14:08 Ondansetron Inj 2 Mg/Ml Inj 2 Ml IVP 09/03/25 14:07 Q6H PRN NAUSEA OR VOMITING Protocol Pantoprazole Sodium 40 mg 08/05/25 09:00 08/05/25 09:21 Pantoprazole 40 Mg Tablet PO 09/04/25 08:59 40 mg QDAY DESMOND Administration Patient Own Medication 1 ea 08/05/25 09:00 08/05/25 09:21 Patient's Own Med 1 Ea Ea PO 09/04/25 08:59 1 tab DAILY DESMOND Administration Tamsulosin HCl 0.4 mg 08/04/25 21:00 08/05/25 20:13 Tamsulosin Hcl 0.4 Mg Capsule PO 09/03/25 20:59 0.4 mg BID DESMOND Administration Plan Mr. Whitley is a 54-year-old Gentleman with Down syndrome with past medical history development delay, diabetes, gout, hypertension, obstructive uropathy(followed by [facility]) with chronic indwelling Shah catheter due to BPH, recurrent UTIs(hx of ESBL UTI, resistant to ertapenem) and chronic pyuria who presented to the ed on 08/04 with failed outpatient abx treatment, started on IV abx, will continue to monitor, has BARB on CKD that is worsening (suspect post renal), Nephro consulted, reposition hsah and given IV fluids 2L #UTI- ruled out #Chronic indwelling catheter #History of BPH s/p cystoscopy and urethral dilation #Hx of Recurrent UTI #Hx of ESBL UTI Patient has a history of recurrent UTI with ESBL, He follows with urology for bph (see below) he was taking outpatient abx with ciproflox for 2 days prior to presentation to the ed without resolution of symptoms and increased fatigue noted by child care specialist. UA positive for leukocyte esterase, PLAN - d/c IV Zosyn q8hr given Urine Cx negative - urine cx w no growth - Continue IV fluids, encourage PO intake #BARB on CKD stage IV- worsening (postrenal suspected) #chronic bilateral hydronephrosis 2/2 #Severe BPH Patient follows with [facility], had cysto done 07/16 Cr increased 2.6-->2.9, will continue iv fluids gently and encourage po intake. PLAN -Per discussion with Dr. Sosa, pts conservator, he is amenable to suprapubic shah given c/f post renal obstruction 2/2 prostatomegaly despite shah that is draining (unable to advance shah to appropriate position in the bladder, as it is stuck in the prostatic urethra and unable to be advanced without coiling. -Avoid nephrotoxins (changed zosyn frequency from q6 to q8) -Renally dosed medications -restarted #bph medications, finasteride and tamsulosin -Nephro consulted, appreciate recs -shah cath was repositioned based on the renal US imaging -IV fluids #IBD #Constipation - resolved with lactulose 40x1 - Docusate PO qday - Restart home fuboxostat 80 mg qd, #Developmental Delay #Down syndrome - Resume home meds Divalproex Na 500mg BID, Quetiapine 75mg qHS #Hyperuricemia/gout - Home meds include Febuxostat 80mg qday #Left Eye cataract ?and protusion noted to have cloudy cornea with boulbous type protrusion. caregiver also notes, but has not seen opthalmologist - rec outpatient f/u with opthalmology. Hospital management: Lines: peripheral IV Diet: renal diet , mechanical dysphagia diet BOWLS only so patient can feed himself GI prophylaxis: d/c protonix 40 po qd given c/f ain DVT prophylaxis: heparin 5000 sq Disposition: med surg for IV abx CODE STATUS: Full code Plan discussed with my attending Dr. Naranjo and my senior resident Dr. Lisa Dominguez MD PGY1 Attending Provider Attestation/Addendum Sri Morales DO, attest that I was physically present for the pearce portions of the service and evaluated the patient with the resident and I reviewed and discussed the case with the resident and agree with the resident's findings and plans of care as documented above Patient seen and eval this a.m. Patient remains at baseline mental status. However, patient is noted to have retained 700 cc of urine despite Shah catheter drainage. Urine appears to be clear. Due to worsening renal function, nephrology was consulted and recommended repeat ultrasound of the kidneys. Renal ultrasound shows that balloon of the Shah catheter is abdominal located in the region of the prostatic urethra. He is also noted to have an layering of echogenic debris in the distended urinary bladder as well as redemonstration of severe right greater than left hydronephrosis without significant interval change. Patient had a previous admission during which there was a discussion of placement of nephrostomy tubes due to the severe hydronephrosis. However, conservator Dr. Wheat did not recommend for nephrostomy tube placement given patient's underlying condition of Down syndrome who may not tolerate having the tubes remain in place. Currently, we do not have any urology services available. Patient's outpatient urologist is also not available. Patient received 2 L of IV fluids due to acute kidney injury secondary to prerenal versus obstructive uropathy. Attempted to advance Shah catheter, but Shah quickly coils per nursing and cannot be further advanced. Electric Power Line Examiner at bedside states that this is a common problem with the patient. However, now he is retaining urine. Patient's outpatient urologist recommends transfer for further urology workup. Case was discussed with patient's conservator Dr. Wheat, who is agreeable to transfer for further workup and management. He feels that procedures for suprapubic catheter or a TURP and cystoscopy may be reasonable for this patient. Transfer has been initiated. Electric Power Line Examiner at bedside was updated. Patient is stable for transfer at this time.
--- NOTE | 2025-08-06 08:06 | XR_ITS ---
Examination: Retroperitoneal ultrasound, complete Technique: Multiple high resolution grayscale images of the retroperitoneum obtained, including kidneys and bladder. Exam date and time: 08/06/2025 at 9:17 a.m. INDICATION: Acute kidney injury COMPARISON: Renal ultrasound bilateral 06/03/2025, CT abdomen pelvis 06/04/2025 FINDINGS: Right renal size is measured at 11.5 x 7.7 x 7.0 cm. Left renal size is measured at 13.7 x 6.4 x 6.5 cm. Redemonstration of severe bilateral hydronephrosis, right segment the left. The right renal parenchyma is measured at nearly 1.9 cm in thickness. It demonstrates diffusely increased echotexture. There is prominent diffuse left renal parenchymal atrophy measuring approximate 0.9 cm in thickness. It also demonstrates mild increased echotexture. This findings appear stable compared to prior ultrasound. No evidence for renal calculi or masses. The urinary bladder is distended, with prevoid volume of 511 cc and post void volume of 409 cc after 5 minutes of the Alvarez being unclamped. Mild debris layers dependently in the bladder lumen. No bladder calculi or focal mass. Mild diffuse bladder wall thickening is present, measuring approximately 5 mm. The balloon of the Alvarez catheter is abnormally located in the region of the prostatic urethra. The prostate gland is enlarged and heterogeneous, measured at approximately 6.2 x 5.5 x 5.4 cm in size. IMPRESSION: The balloon of the Alvarez catheter is abnormally located in the region of the prostatic urethra. A mild degree of dependently layering of echogenic debris is present in the distended urinary bladder. Redemonstration of severe right greater than left hydronephrosis without significant interval change.
[2025-08-06] MEDS: RINGERS LACTATED 1000 ML 1,000 ML 125 ML IV ×2 (09:04→16:32)
[2025-08-06] MEDS: HEPARIN SOD INJ 5000 UNIT/ML VIAL SC ×2 (09:05→20:15)
[2025-08-06] MEDS: DOCUSATE SOD 100 MG CAPSULE PO (09:05)
[2025-08-06] MEDS: TAMSULOSIN HCL 0.4 MG CAPSULE PO ×2 (09:05→20:15)
[2025-08-06] MEDS: PATIENT'S OWN MED 1 EA EA PO (09:05)
[2025-08-06] MEDS: FINASTERIDE 5 MG TABLET PO (09:06)
--- NOTE | 2025-08-06 10:44 | PD.RESPRO ---
Documentation for date of: 08/06/25 Exam Vital Signs Temp Pulse Resp BP Pulse Ox O2 Del Method 97.1 F 74 18 133/89 H 96 Room Air 08/06/25 07:29 08/06/25 07:29 08/06/25 07:29 08/06/25 07:29 08/06/25 07:29 08/06/25 07:29 Objective Labs 08/06/25 04:34 08/06/25 04:34 Labs: Laboratory Results - last 24 hr 08/06/25 04:34 WBC 6.4 RBC 3.41 L Hgb 12.2 L Hct 35.7 L MCV 105 H MCH 35.8 H MCHC 34.2 RDW Std Deviation 55.0 H Plt Count 180 Neut % (Auto) 67 Lymph % (Auto) 17 [place] % (Auto) 13 H Eos % (Auto) 1 Baso % (Auto) 1 Neut # (Auto) 4.3 Lymph # (Auto) 1.1 [place] # (Auto) 0.9 H Eos # (Auto) 0.1 Baso # (Auto) 0.1 Immature Gran # (Auto) 0.05 H Absolute Nucleated RBC 0.00 Immature Gran % 1 H Nucleated RBC % 0 Sodium 142 Potassium 3.9 Chloride 105 Carbon Dioxide 27.9 Anion Gap 9 BUN 31 H Creatinine 3.4 H D Estim Creat Clear Calc 22.2 L eGFR 20 L BUN/Creatinine Ratio 9 L Glucose 90 Calculated Osmolality 289 Calcium 8.9 Corrected Calcium 9.5 Phosphorus 3.6 Magnesium 2.4 Total Bilirubin 0.4 AST 26 ALT 9 L Alkaline Phosphatase 54 Total Protein 6.8 Albumin 3.3 L Globulin 3.5 Albumin/Globulin Ratio 0.9 L Quality Measures Quality Measures VTE prophylaxis Assessment & Plan Assessment Current Active Medications: Generic Name Dose Route Start Last Admin Trade Name Freq PRN Reason Stop Dose Admin Acetaminophen 650 mg 08/04/25 14:08 Acetaminophen 325 Mg Tablet PO 09/03/25 14:07 Q6H PRN Fever >101.5 Acetaminophen 650 mg 08/04/25 14:08 Acetaminophen 325 Mg Tablet PO 09/03/25 14:07 Q6H PRN PAIN SCALE 1-3 (mild Docusate Sodium 100 mg 08/05/25 09:00 08/06/25 09:05 Docusate Sod 100 Mg Capsule PO 09/04/25 08:59 100 mg QDAY DESMOND Administration Protocol Finasteride 5 mg 08/05/25 09:00 08/06/25 09:06 Finasteride 5 Mg Tablet PO 09/04/25 08:59 5 mg DAILY DESMOND Administration Heparin Sodium (Porcine) 5,000 unit 08/04/25 21:00 08/06/25 09:05 Heparin Sod Inj 5000 Unit/Ml Vial SC 08/18/25 20:59 5,000 unit Q12HR DESMOND Administration Lactated Ringer's 1,000 mls @ 125 mls/hr 08/06/25 08:18 08/06/25 09:04 Lactated Ringers IV 08/07/25 00:17 125 mls/hr .Q8H DESMOND Administration Ondansetron HCl 4 mg 08/04/25 14:08 Ondansetron Inj 2 Mg/Ml Inj 2 Ml IVP 09/03/25 14:07 Q6H PRN NAUSEA OR VOMITING Protocol Pantoprazole Sodium 40 mg 08/05/25 09:00 08/05/25 09:21 Pantoprazole 40 Mg Tablet PO 09/04/25 08:59 40 mg On Hold: 08/06/25 08:45 QDAY DESMOND Administration Patient Own Medication 1 ea 08/05/25 09:00 08/06/25 09:05 Patient's Own Med 1 Ea Ea PO 09/04/25 08:59 1 tab DAILY DESMOND Administration Tamsulosin HCl 0.4 mg 08/04/25 21:00 08/06/25 09:05 Tamsulosin Hcl 0.4 Mg Capsule PO 09/03/25 20:59 0.4 mg BID DESMOND Administration
--- NOTE | 2025-08-06 10:44 | PD.RESCONSUL ---
HPI Data of Consult Consult date: 08/06/25 Requesting Physician: Sri Naranjo DO Admitting Provider: Sri Naranjo DO Attending Provider: Sri Naranjo DO Primary Care Provider: Robbie Carroll PA-C Consult Narrative Reason for consult: BARB on CKD History of present illness: Mr. Whitley is a 54-year-old Gentleman with Down syndrome with past medical history development delay, diabetes, gout, hypertension, obstructive uropathy(followed by Victor M) with chronic indwelling Shah catheter due to BPH, recurrent UTIs(hx of ESBL UTI, resistant to ertapenem) and chronic pyuria who had cystoscopy and urine cultures taken which demonstrated UTI, he was started on course of abx with ciproflox. Per his health aid at bedside, she states that in the past 2 days he was noted to be more fatigued and less willing to engage which raised suspician for him not feeling well. She states that Mr. Whitley has not had a BM since 08/02 and that she was concerned that his UTI was not getting better on the antibiotics that he was taken outpatient At baseline patient is nonverbal, able to ambulate independently, has chronic indwelling shah cath that is exchanged monthly ROS : unable to assess given pt is nonverbal Surgical hx: cystoscopy 08/06/25: Patient is well-known to nephrology service was previously admitted earlier in May for similar presentation. At the time, discussion of nephrostomy tubes and hemodialysis its was deemed to be not a candidate for aforementioned as patient is unable to comply with instructions iso Down syndrome. Patient also has history of pulling lines. Patient currently admitted for failed outpatient UTI antibiotic treatment, nephrology consulted for worsening BARB. Patient's BARB likely secondary to UTI versus postobstructive uropathy as patient has a complicated urologic history. Creatinine on admission 2.5, today 3.4. Renal ultrasound showed Shah catheter located in prostatic urethra, mild degree of echogenic debris and distended bladder, severe R>L hydronephrosis without significant change from 05/2025. Recommend to repeat chest Shah catheter to monitor creatinine. Patient is unable to communicate symptoms however caregiver at bedside stating that patient has lately been fatigued and was less willing to engage. cc:: cc: Sri Naranjo DO Review of Systems Review of Systems Systems Reviewed: All systems reviewed, normal except as documented Exam Vital Signs Temp Pulse Resp BP Pulse Ox O2 Del Method 97.1 F 74 18 133/89 H 96 Room Air 08/06/25 07:29 08/06/25 07:29 08/06/25 07:29 08/06/25 07:29 08/06/25 07:29 08/06/25 07:29 Narrative Exam GENERAL: Alert unable to assess orientation due to developmental delay HEENT: mucous membranes moist, L cataract CARDIOVASCULAR: regular rate and rhythm, S1/S2 present, no murmurs appreciated PULMONARY: clear to auscultation bilaterally, no rales/rhonchi/wheezes ABDOMINAL: soft, non-tender, non-distended, no rebound/guarding, bowel sounds present : Shah in place draining clear urine EXTREMITIES: no peripheral edema SKIN: warm and dry, intact, no rashes NEURO: CN II-XII grossly intact, no focal deficits, alert, following commands Results Labs 08/06/25 04:34 08/06/25 04:34 Labs: Short CBC 08/06/25 Range/Units 04:34 WBC 6.4 (3.8-10.6) Thou/mm3 Hgb 12.2 L (13.5-16.0) g/dL Hct 35.7 L (41.0-53.0) % Plt Count 180 (140-440) Thou/mm3 BMP 08/06/25 04:34 Sodium 142 Potassium 3.9 Chloride 105 Carbon Dioxide 27.9 BUN 31 H Creatinine 3.4 H D Glucose 90 Calcium 8.9 Liver Function 08/06/25 Range/Units 04:34 Total Bilirubin 0.4 (0.3-1.2) mg/dL AST 26 (0-34) U/L ALT 9 L (10-49) U/L Alkaline Phosphatase 54 (46-116) U/L Albumin 3.3 L (3.5-5.0) gm/dL Quality Measures Quality Measures VTE prophylaxis Medications Home Medications and Allergies Home Medications ?Medication ?Instructions ?Recorded ?Confirmed ?Type docusate sodium 100 mg capsule 100 mg PO DAILY bowel movement 05/09/19 08/05/25 History loratadine 10 mg tablet 10 mg PO QDAY 05/16/19 08/04/25 History diphenhydramine HCl 25 mg capsule 25 mg PO HS 07/07/21 08/04/25 History (Benadryl) magnesium oxide 400 mg PO BID 01/17/22 08/05/25 History melatonin 10 mg tablet 10 mg PO HS 01/17/22 08/05/25 History finasteride 5 mg tablet 5 mg PO DAILY 01/18/22 08/04/25 History ketoconazole 2 % topical cream See Rx Instructions .Route .COMPLEX 01/18/22 08/05/25 History febuxostat 80 mg tablet (Uloric) 80 mg PO QDAY 06/20/22 08/04/25 History metoprolol tartrate 50 mg tablet 50 mg PO BID 06/20/22 08/05/25 History npnmrcbpjgen-mxzoqjoq-souxzq tablet 1 tab PO QDAY 10/02/23 08/05/25 History quetiapine 25 mg tablet 25 mg PO TID 06/03/25 08/05/25 History colchicine 0.6 mg capsule 0.6 mg PO QDAY 07/15/25 08/05/25 History divalproex 500 mg tablet,delayed 500 mg PO BID 07/15/25 08/05/25 History release (Depakote) tamsulosin 0.4 mg capsule (Flomax) 0.4 mg PO BID 07/15/25 08/04/25 History acetaminophen 325 mg tablet 650 mg PO Q6H PRN fever or pain 08/05/25 08/05/25 History ciprofloxacin HCl 500 mg tablet 500 mg PO Q12H 08/05/25 08/05/25 History hydrocortisone 2.5 % topical cream 1 applic topical BID 08/05/25 08/05/25 History mupirocin 2 % topical ointment 1 applic topical BID 08/05/25 08/05/25 History (Centany) Allergies Allergy/AdvReac Type Severity Reaction Status Date / Time No Known Allergies Allergy Verified 08/04/25 09:36 Visit Medications Acetaminophen (Acetaminophen 325 Mg Tablet) 650 mg PO Q6H PRN PRN Reason: Fever >101.5 Stop: 09/03/25 14:07 Acetaminophen (Acetaminophen 325 Mg Tablet) 650 mg PO Q6H PRN PRN Reason: PAIN SCALE 1-3 (mild Stop: 09/03/25 14:07 Docusate Sodium (Docusate Sod 100 Mg Capsule) 100 mg PO QDAY DESMOND; Protocol Stop: 09/04/25 08:59 Last Admin: 08/06/25 09:05 Dose: 100 mg Finasteride (Finasteride 5 Mg Tablet) 5 mg PO DAILY DESMOND Stop: 09/04/25 08:59 Last Admin: 08/06/25 09:06 Dose: 5 mg Heparin Sodium (Porcine) (Heparin Sod Inj 5000 Unit/Ml Vial) 5,000 unit SC Q12HR DESMOND Stop: 08/18/25 20:59 Last Admin: 08/06/25 09:05 Dose: 5,000 unit Lactated Ringer's (Lactated Ringers) 1,000 mls @ 125 mls/hr IV .Q8H DESMOND Stop: 08/07/25 00:17 Last Admin: 08/06/25 09:04 Dose: 125 mls/hr Ondansetron HCl (Ondansetron Inj 2 Mg/Ml Inj 2 Ml) 4 mg IVP Q6H PRN; Protocol PRN Reason: NAUSEA OR VOMITING Stop: 09/03/25 14:07 Pantoprazole Sodium (Pantoprazole 40 Mg Tablet) 40 mg PO QDAY DESMOND On Hold: 08/06/25 08:45 Stop: 09/04/25 08:59 Last Admin: 08/05/25 09:21 Dose: 40 mg Patient Own Medication (Patient's Own Med 1 Ea Ea) 1 ea PO DAILY DESMOND Stop: 09/04/25 08:59 Last Admin: 08/06/25 09:05 Dose: 1 tab Tamsulosin HCl (Tamsulosin Hcl 0.4 Mg Capsule) 0.4 mg PO BID DESMOND Stop: 09/03/25 20:59 Last Admin: 08/06/25 09:05 Dose: 0.4 mg Discontinued Medications Lactated Ringer's (Lactated Ringers) 500 mls @ 999 mls/hr IV .Q31M ONE Stop: 08/04/25 11:40 Last Admin: 08/04/25 11:47 Dose: Not Given Piperacillin/Tazobactam/Dextrose (Zosyn) 3.375 gm in 50 mls @ 100 mls/hr IV Q6HR DESMOND; Protocol Stop: 08/11/25 14:32 Last Admin: 08/04/25 18:18 Dose: Not Given Lactated Ringer's (Lactated Ringers) 1,000 mls @ 100 mls/hr IV .Q10H DESMOND Stop: 08/05/25 10:56 Last Admin: 08/05/25 00:52 Dose: 100 mls/hr Piperacillin/Tazobactam/Dextrose (Zosyn) 3.375 gm in 50 mls @ 100 mls/hr IV Q6HR DESMOND; Protocol Stop: 08/11/25 18:01 Last Admin: 08/05/25 05:14 Dose: 100 mls/hr Magnesium Sulfate (Magnesium Sulfate Ivpb) 4 gm in 50 mls @ 12.5 mls/hr IV X1 ONE Stop: 08/05/25 13:58 Last Admin: 08/05/25 10:35 Dose: 12.5 mls/hr Piperacillin/Tazobactam/Dextrose (Zosyn) 3.375 gm in 50 mls @ 12.5 mls/hr IV Q8H DESMOND; Protocol Stop: 08/12/25 10:59 Last Admin: 08/06/25 02:13 Dose: 12.5 mls/hr Lactulose (Lactulose Syrup 20 Gm/30 Ml Udc) 40 gm PO X1 ONE; Protocol Stop: 08/04/25 14:14 Last Admin: 08/04/25 16:21 Dose: 40 gm Non-Formulary Medication (Febuxostat [Uloric]) 80 mg PO QDAY DESMOND Stop: 09/04/25 08:59 Assessment & Plan Plan Mr. Whitley is a 54M with Down syndrome with past medical history development delay, diabetes, gout, hypertension, obstructive uropathy(followed by Victor M) with chronic indwelling Shah catheter due to BPH, recurrent UTIs(hx of ESBL UTI, resistant to ertapenem) and chronic pyuria who presented to the ED on 08/04 for AMS, found to have lactic acidosis and BARB on CKDIV, likely 2/2 post renal malpositioned shah vs prerenal UTI. Took ciprofloxacin for 2 days prior to admission. #BARB on CKDIV, likely post renal vs pre renal #Chronic bilateral hydronephrosis 2/2 #Severe BPH with chronic indwelling catheter s/p cystoscopy and urethral dilatation (07/16/25) Patient is well-known to nephrology service was previously admitted earlier in May for similar presentation. At the time, discussion of nephrostomy tubes and hemodialysis its was deemed to be not a candidate for aforementioned as patient is unable to comply with instructions iso Down syndrome and history of pulling lines. Creatinine on admission 2.5, uptrended to 3.4. Renal ultrasound showed Shah catheter located in prostatic urethra, mild degree of echogenic debris and distended bladder, severe R>L hydronephrosis without significant change from 05/2025. Recommend to repeat chest Shah catheter to monitor creatinine. Ddx: BARB likely secondary to UTI versus postobstructive uropathy as patient has a complicated urologic history. Plan: - Shah catheter unable to be advanced due to BPH, depsite output seen in bag, 700cc still retained, likely poor drainage - LR 2L at 125 cc/hr, encourage oral intake - Recommend urology consult, will attempt to contact Dr. Dow if possible TURP can be done as patient is a poor candidate for nephrostomy tubes and HD and if conservator agrees - Tamsulosin 0.4 mg BID and finasteride 5 mg QD #UTI, ruled out #Hx of recurrent UTI #Hx of ESBL UTI UA indicates infection however patient does have indwelling catheter. Patient was treated with two days of cipro prior to admission, but AMS continued, prompting residential caregiver to bring patient to ED. UCx negative. Zosyn (08/04-08/06) Plan: - Plan as above - s/p abx as above #IBD #Constipation #Developmental Delay #Down syndrome #Hyperuricemia/gout #Left Eye cataract ?and protusion - Above managed per primary team Thank you for the consultation and allowing participation in patient's care. Plan of care discussed with attending Dr. Smith. Frances Mendiola, DO PGY-1 Internal Medicine Attending Provider Attestation/Addendum Patient seen and examined with resident physician Dr. Mendiola. Note reviewed, agree with findings and recommendations. Patient currently seen in medical floor. Patient with Down syndrome and obstructive uropathy. Despite Shah he has significant urinary retention. No urology services available. Creatinine greater than 3. Spoke to Dr. Dow-recommended transfer for urology service. Primary care notified. Thank you Sri for allowing me to participate in the care of Mr. Whitley
--- NOTE | 2025-08-06 15:31 | PC.SS ---
Patient is alert but non responsive. Patient is devel. delayed. SS contacted [facility] and spoke to [place]. Patient is from [facility] with 24 hour care. Patient was admitted for UTI with chronic shah. Patient's baseline is he's independent with ADL's. No DME used. Patient has no family involved. [facility] is connected. Dr. Wheat makes all medical decisions. [facility] provides all transportation. Patient is ambulatory. Patient follows with Dr. Bhardwaj for Urology and Dr. Smith for Nephrology. PCP: DOMINIC Phelps. Last appt was last week. medical decision maker: [facility]- [phone]
[2025-08-06] MEDS: METOPROLOL TARTRATE 25 MG TABLET 50 MG PO (16:29)
--- NOTE | 2025-08-06 17:20 | PC.CM ---
Addendum entered by Mary Marr RN 08/06/25 19:33: Transfer packet given to M/S charge nurse and I gave her report. Addendum entered by Mary Marr RN 08/06/25 18:17: 1805I spoke to [facility] transfer nurse. She states patient has been accepted by Dr. Courtney Corado but they do not have a bed at this time. They will call once a bed is available. You can follow up with [facility] Arce at to check on Bed availability. Original Note: 1650 I received a call from Ba with the transfer center at [facility]. He wanted to verify the number to our doctor. I let him know Dr. Nina Dominguez wanted to be called and I provided him with her phone number. I made a CD for transfer packet and I put it in the transfer packet. 1540 I called [facility] to make sure they received all my paperwork. They stated they received everything and they were going to reach out to their urologist. 1500 Patient is needing urology services. I contacted [facility] and I faxed over information. I started transfer packet. 1445 I received a referral to transfer patient for obstructive uropathy with sever bilateral hydronephrosis.
--- NOTE | 2025-08-06 18:11 | PC.NURSE ---
DR. MCKEON AT BEDSIDE, REMOVED SANTANA CATHETER, AND REAPPLIED NEW SANTANA CATHETER 16FR 30CC. PT TOLERATED FAIR.
--- NOTE | 2025-08-06 18:46 | ESDS_ITS ---
<Statement entered by Sri Naranjo DO - 08/06/25 19:13> I, Sri Naranjo DO, attest that I was physically present for the pearce portions of the service and evaluated the patient with the resident and I reviewed and discussed the case with the resident and agree with the resident's findings and plans of care as documented above # BARB on CKD stage IV 2/2 #Obstructive Uropathy 2/2 #BPH # Severe b/l hydronephrosis #Chronic indwelling shah catheter #penile hypospadia #Pyuria #UTI, ruled out #IBD #Constipation #Down Syndrome #Gout Patient is a 54-year-old male with past medical history of Down syndrome, hypertension, CKD stage IV, recurrent UTI, obstructive uropathy due to BPH requiring chronic indwelling Shah catheter, chronic b/l hydronephrosis, penile hypospadia, gout who was brought to ED due to worsening fatigue and lower abdominal discomfort, suspicious for UTI. Patient lives in senior care and is nonverbal at baseline, but ambulatory. Caretakers noted that he had been progressively less active two days prior to arrival. Patient was admitted for workup and management of suspected UTI. UA was noted to have signficant pyuria. Shah catheter was exhanged in the ED and patient was given IV zosyn and IV fluids. However, over the course of admission, patient developed a worsening BARB with Creatinine uptrending from 2.5 --->3.4. Nephrology was consulted. Renal US was done revealing balloon of shah catheter to be abnormally located in the prostatic urethra. Mild degree of dependently layering of echogenic debris noted in distended urinary bladder and redemonstration of severe right greater than left hydronephrosis without significant interval change. Attempt was made to advance shah catheter, but shah would coil. Stucco Worker at bedside stated that this was a common problem. Bedside bladder scan revealed 700cc urinary retention despite clear urine output from shah catheter. Due to lack of urology services available, decision was made to transfer patient for further urological workup. Patient is conserved by the [facility]. Spoke to patient's conservator regarding findings of renal ultrasound and need for further urological workup. Patient has had previous episodes of BARB and obstructive uropathy as well on previous admissions during which nephrostomy tube placement and possibility of dialysis was discussed with director of [facility]. It was decided during previous admission that patient would not be a good candidate for nephrostomy tube placement or HD as patient would not tolerate either procedures or keeping tubes in place. During today's discussion with [facility] director, Dr. Wheat, he was agreeable for patient undergo further urological workup if necessary such as suprapubic catheter placement or cysotoscopy if they are necessary. Stucco Worker at bedside was updated regarding transfer. Patient is stable for transfer to outside hospital for further workup at this time. Coude catheter was placed prior to transfer and continues to drain clear urine output. Urine cultures have been negative. IV zosyn was discontinued after 2 days once final cultures and sensitivites were obtained. Planned Discharge Date 08/06/25 DS: Providers Provider Date of admission: 08/04/25 14:34 Primary care physician: Robbie Carroll PA-C Admitting Provider: Sri Naranjo DO Attending Provider on Admission: Sri Naranjo DO Consults: 08/06/25 07:42 Consult to Nephrology Routine Comment: Consulting Provider: Beckie Smith 08/06/25 14:32 Referral - Sports Coordinator Routine Service Needed for Transfer: Urology Addl Comments:: for obstructive uropathy 2/2 prostatomegaly with severe BL hydronephrosis despite shah cath and inability to place nephrostomy tubes due to developmental delay and down syndrome. has BARB on ckd Attending Provider on DC: Sri Naranjo DO Discharging Provider: Sri Naranjo DO DS: Diagnosis Problem List Completed Was Problem List Reviewed/Reconciled?: Yes Hospital Course Hospital Course Hospital course: Hospital Course Mr. Whitley is a 54-year-old gentleman with Down syndrome with past medical history development delay, diabetes, gout, hypertension, obstructive uropathy (followed by Dr. Dow outpatient), and chronic BL hydronehrosis (R>L) with chronic indwelling Shah catheter due to BPH/prostatomegaly, recurrent UTIs(hx of ESBL UTI, resistant to ertapenem) and chronic pyuria who presented to the ed on 08/04 with failed outpatient abx treatment on ciprofloxacin, he was admitted for suspected UTI and started on IV abx (zosyn 08/04-08/06) Urine cx results showed now growth. His fatigue, energy levels, engagement with providers improved and per his acute care nursing assistant he was back to his baseline. His Cr baseline is noted to be about 2.5 and throughout his admission his Cr increased to 3.4. Nephrology was consulted who recommended renal ultrasound which redemonstrated his chronic R>L severe hydronephrosis and the shah catheter baloon in the prostatic urethra. Bladder scan had 700cc volume despite shah draining. Transfer was initiated after discussion with pt's conservator who was amenable to transfer for urologic intervention and possible suprapubic catheter placement. Patient stable and ready for transfer hospital for urological care Diagnoses UTI- ruled out #Chronic indwelling catheter #History of BPH s/p cystoscopy and urethral dilation #Hx of Recurrent UTI #Hx of ESBL UTI #BARB on CKD stage IV- worsening (postrenal suspected) #chronic bilateral hydronephrosis 2/ #Severe BPH #IBD #Constipation #Developmental Delay #Down syndrome #Hyperuricemia/gout #Left Eye cataract ?and protusion Discharge instructions - pending transfer for urologic care Plan discussed with my attending Dr. Marcella Dominguez MD PGY1 Time Spent with Patient Time attestation: Total time spent providing and/or coordinating discharge services: Time spent: Greater than 30 minutes Exam Vital Signs Temp Pulse Resp BP Pulse Ox O2 Del Method 98.4 F 109 H 18 154/98 H 96 Room Air 08/06/25 16:30 08/06/25 16:29 08/06/25 16:00 08/06/25 16:30 08/06/25 16:00 08/06/25 16:00 Narrative Exam General: No acute distress, well nourished, AAOX0, (developmental delay), smiling and waving, asking for his magazines Eye: Left eye with cataract and bulbous/conical protuberance HENT: Normocephalic, atraumatic, dry oral mucosa,poor dentition Neck: Supple, non-tender, no JVD, no lymphadenopathy Lungs: Non-labored respirations, symmetric chest rise, Clear to auscultate bilaterally, No wheezing, rhonchi, crackles, on RA Heart: Peripheral pulses intact bilaterally, Regular Rate and Rhythm, No pitting edema of bilateral LEs. Abdomen: firm, non-tender, non-distended, no palpable masses, no suprapubic tenderness however difficult to assess given pt is nonverbal : shah with clear yellow urine ( shah was exchanged in ed on 08/04) Musculoskeletal: No cyanosis or edema, No visible joint swelling Skin: Skin is warm, dry, no rashes or lesions. Psychiatric: Cooperative, appropriate mood and affect,, not agitated Neuro: Cranial nerves II-XII grossly intact.Sensations intact to light touch. Discharge Plan Plan Patient Disposition: Xfer Other Prescriptions/Referrals Prescriptions/Med Rec: No Action diphenhydramine HCl [Benadryl] 25 mg capsule 25 mg PO HS melatonin 10 mg Tablet 10 mg PO HS magnesium oxide 400 mg magnesium Tablet 400 mg PO BID Rx Instructions: TAKE ONE ORALLY TWO TIMES DAILY NEEDED FOR MUSCLE ACHES ketoconazole 2 % Cream See Rx Instructions .ROUTE .COMPLEX Rx Instructions: APPLY TO AFFECTED AREAS OF BOTH FEET DAILY AT BEDTIME finasteride 5 mg Tablet 5 mg PO DAILY docusate sodium 100 mg Capsule 100 mg PO DAILY Rx Instructions: prn if no bm on the 3rd day by 1900. loratadine 10 mg Tablet 10 mg PO QDAY metoprolol tartrate 50 mg Tablet 50 mg PO BID Rx Instructions: Hold if SBP<90 or HR<60 febuxostat [Uloric] 80 mg Tablet 80 mg PO QDAY loperamide [Anti-Diarrheal (loperamide)] 2 mg tablet 2 mg PO Q6H PRN (Reason: loose stool) Qty: 14 0RF colchicine 0.6 mg capsule 0.6 mg PO QDAY divalproex [Depakote] 500 mg tablet,delayed release (DR/EC) 500 mg PO BID tamsulosin [Flomax] 0.4 mg capsule 0.4 mg PO BID ciprofloxacin HCl 500 mg tablet 500 mg PO Q12H Patient Comments: TAKE 1 TABLET BY MOUTH TWICE DAILY FOR 10 DAYS hydrocortisone 2.5 % cream 1 applic topical BID Rx Instructions: APPLY TO AFFECTED AREAS TOPICALLY TWO TIMES DAILY mupirocin [Centany] 2 % ointment 1 applic topical BID Rx Instructions: APPLY TO AFFECTED AREAS TOPICALLY TWO TIMES DAILY acetaminophen 325 mg tablet 650 mg PO Q6H PRN (Reason: fever or pain) Rx Instructions: TAKE 2 TABLETS ORALLY EVERY 6 HOURS WHEN NEEDED FOR PAIN OR TEMPERATURE GREATER >100.5 [id number]-cvkzdesf-[id number] Tablet 1 tab PO QDAY Rx Instructions: centrum silver quetiapine 25 mg tablet 25 mg PO TID Referrals: Robbie Carroll PA-C [Primary Care Provider] Patient/Caregiver Discharge Instructions Print Language: Haitian Stand Alone Forms: Kimberlee Award Info., Patient Portal Info Letter Quality Discharge Quality Measures VTE prophylaxis
[2025-08-06] MEDS: HYDROmorphone INJ 2 MG/ML VIAL 1 MG IVP (19:42)
--- NOTE | 2025-08-06 23:31 | PC.NURSE ---
Called [facility] to get a hold of Dr. Wheat at 21:30 d/t patient being accepted for transfer at [facility], after hour call-line stated they would try to get cedricold mariah Chisholm (on-call Dr). Called [facility] again at 23:10 d/t no one returning call, [facility] after hour line got a hold of Kathrine Sanz, she stated she felt better if I spoke to Dr. Wheat directly to get the okay to transfer. Kathrine provided me with Dr Wheat's phone number, attempted to call him at 23:30 to no availability.
[2025-08-07] VITALS: BP 156/97; PULSE 75; RESP 16; TEMP 36.4; O2SAT 92
--- NOTE | 2025-08-07 01:04 | PC.NURSE ---
Pt was transferred to [facility] for advanced care. senior caredistrict home economics agent (Lexii) aware. [facility] okayed transfer. Gave report to Ramya WEBB at [facility], patient will be going to [id number].
== END 2025-08-07 01:00 | disposition short-term general hospital (02) | DRG 699 ==
LOC: SERX 10:29 → SERHOLD 08-05 06:18 → S3NX 08-05 06:18
PROVIDERS: Admitting Provider Internal Medicine; Emergency Provider Emergency Medicine; PCP Physician Assistant; Visit Provider Internal Medicine
DX: T83.518A Infection and inflammatory reaction due to other urinary catheter, initial encounter (principal); E87.20 Acidosis, unspecified; N18.4 Chronic kidney disease, stage 4 (severe); N13.6 Pyonephrosis; N17.9 Acute kidney failure, unspecified; F84.0 Autistic disorder; Q90.9 Down syndrome, unspecified; N40.0 Benign prostatic hyperplasia without lower urinary tract symptoms; I12.9 Hypertensive chronic kidney disease with stage 1 through stage 4 chronic kidney disease, or unspecified chronic kidney disease; M10.9 Gout, unspecified; K59.00 Constipation, unspecified; E11.22 Type 2 diabetes mellitus with diabetic chronic kidney disease; E11.36 Type 2 diabetes mellitus with diabetic cataract; Y84.6 Urinary catheterization as the cause of abnormal reaction of the patient, or of later complication, without mention of misadventure at the time of the procedure; Z87.440 Personal history of urinary (tract) infections
CPT/HCPCS: 36415; 71045; 76770; 80053; 81001; 83605; 83735; 84100; 85025; 87040; 87086; 96360; 96361; 96372; 99284; J1171; J1644; J2543; J3475; J7120; A9270

== ENCOUNTER → 2025-08-25 | Outpatient (CLI) | payer MEDICARE, MEDICAID, SELFPAY ==
[2025-08-25 10:12] LABS: Basophils # (Auto) 0.1 Thou/mm3 (0.0-0.2); Basophils % (Auto) 2 % (0-2.5); Eosinophils # (Auto) 0.1 Thou/mm3 (0.0-0.5); Eosinophils % (Auto) 2 % (0-10); Hematocrit 38.4 % (41.0-53.0); Hemoglobin 13.0 g/dL (13.5-16.0); Immature Granulocytes Auto 0.02 Thou/mm3 (0.00-0.00); Lymphocytes # (Auto) 1.0 Thou/mm3 (1.0-4.8); Lymphocytes % (Auto) 26 % (10-50); Mean Corpuscular HGB Conc 33.9 g/dl (31.0-37.0); Mean Corpuscular Hemoglobin 34.6 pg (25.0-35.0); Mean Corpuscular Volume 102 fL (80-100); Monocytes # (Auto) 0.3 Thou/mm3 (0.0-0.8); Monocytes % (Auto) 8 % (0-12); Neutrophils # (Auto) 2.6 Thou/mm3 (1.8-7.7); Neutrophils % (Auto) 63 % (37-80); Nucleated Red Blood Cell # 0.00 Thou/mm3 (0.00-0.00); Nucleated Red Blood Cell % 0 /100 WBC (0); Platelet Count 206 Thou/mm3 (140-440); RDW Standard Deviation 51.9 fL (35.1-43.9); Red Blood Count 3.76 Miln/mm3 (4.50-5.90); White Blood Count 4.1 Thou/mm3 (3.8-10.6)
[2025-08-25 10:27] LABS: Albumin, Serum 3.8 gm/dL (3.5-5.0); Anion Gap 8 (7-16); BUN/Creatinine Ratio 9 Ratio (12-20); Blood Urea Nitrogen 21 mg/dL (9-23); Calcium 9.5 mg/dL (8.3-10.6); Calcium (Corrected) 9.7 mg/dL (8.5-10.1); Carbon Dioxide 31.4 mMol/L (20.0-31.0); Chloride 98 mMol/L (98-107); Creatinine (Component) 2.4 mg/dL (0.6-1.3); Glucose 75 mg/dL (74-106); Osmolality,Calculated 275 (275-295); Phosphorous 3.4 mg/dL (2.4-5.1); Potassium 4.6 mMol/L (3.4-5.1); Sodium 137 mMol/L (136-145); eGFR 31 See Note
[2025-08-25 10:42] LABS: Vitamin D 25 Hydroxy Total 61.8 ng/mL (7.3-40.2)
[2025-08-25 11:06] LABS: Parathyroid Hormone Intact 38.5 pg/ml (18.5-88.0)
== END | disposition home or self-care (01) ==
PROVIDERS: PCP Physician Assistant; Referring Provider Internal Medicine; Visit Provider Internal Medicine
DX: I12.9 Hypertensive chronic kidney disease with stage 1 through stage 4 chronic kidney disease, or unspecified chronic kidney disease (principal); N18.4 Chronic kidney disease, stage 4 (severe)
CPT/HCPCS: 36415; 80069; 82306; 83970; 85025